=== PATIENT | female | born 1935 | race Caucasian/White ===

== ENCOUNTER 2020-06-14 13:17 | Emergency (ER) | payer MEDICARE, SELFPAY ==
[2020-06-14 13:22] VITALS: BP 170/84; PULSE 73; RESP 14; TEMP 36; O2SAT 98; BMI 32.8
--- NOTE | 2020-06-14 13:39 | ED_ITS ---
HPI - Wound/Laceration General: Chief Complaint: Wound/Laceration Stated Complaint: right foot toe lac Time Seen by Provider: 06/14/20 13:39 History of Present Illness: HPI narrative: Patient is an 84-year-old female comes to the ED with a wound on third toe of right foot. Patient has a past medical history of peripheral neuropathy. Patient said she had callus at the tip of her third digit of the right foot. Last night, she cut the callus off with clippers but then it started bleeding and thinks she probably cut a little more off than she should have. Pt also thinks she might have accidentally removed her toe nail as well. Patient is on Eliquis. She has had trouble slowing the bleeding. Associated symptoms: Denies chills, fever(s), nausea or vomiting Review of Systems Const: Denies: fever(s), chills or fatigue Eyes: Denies: change in vision or eye discomfort ENMT: Denies: throat pain, odynophagia, nasal discharge or nasal congestion Card: Denies: chest pain, palpitations, edema, swelling of feet/ankles, dyspnea on exertion or orthopnea Resp: Denies: dyspnea, productive cough or non-productive cough GI: Denies: abdominal pain, nausea, vomiting, diarrhea, constipation or hematochezia : Denies: flank pain, dysuria or hematuria Musc: Denies: neck pain, back pain or extremity swelling Skin/Breast: Reports: new lesions (lesion on tip of 3rd toe right foot); Denies: rash Neuro: Denies: headache(s), numbness in extremities or weakness in extremities Physical Exam Const: COMMON NORMALS: no acute distress, patient oriented x3, healthy appearing and alert GENERAL APPEARANCE: cooperative and comfortable HENMT: COMMON NORMALS: normocephalic HEAD & SCALP: normocephalic MOUTH: Normal oral and palatal mucosa present THROAT: posterior oropharynx normal and uvula midline Neck/C-Spine: COMMON NORMALS: supple GENERAL: Yes normal visual inspection Resp: COMMON NORMALS: normal respiratory effort, No retractions, No use of accessory muscles and clear to auscultation bilaterally AUSCULTATION: clear to auscultation bilaterally Cardio: COMMON NORMALS: regular rate, regular rhythm, S1 normal heart sound present, S2 normal heart sound present, No gallops present (Cardio), No clicks present (Cardio), No murmurs present (Cardio) and Peripheral pulses 2+ througho ut RATE: regular rate RHYTHM: regular rhythm HEART SOUNDS: S1 normal heart sound present and S2 normal heart sound present PERIPHERAL PULSES: Peripheral pulses 2+ throughout GI: COMMON NORMALS: Normal to inspection, nondistended, normoactive bowel sounds present, Soft to palpation, non-tender and no masses PALPATION: Yes Soft to palpation : COMMON NORMALS: Yes no CVA tenderness BLADDER/KIDNEY EXAM: Yes no CVA tenderness Back/Pelvis: COMMON NORMALS: no CVA tenderness Extremity: NARRATIVE EXTREMITY EXAM: Patient has an avulsion wound on third toe of right foot at the tip. No nail seen upon examination. there is minimal active bleeding currently. No signs of infection such as erythema, warmth or drainage. No foreign body or contamination seen in wound. this wound is not a candidate for closure with sutures. Neuro: COMMON NORMALS: patient oriented x3 and moves all extremities SENSORIUM/ORIENTATION: Yes alert Skin: NARRATIVE SKIN EXAM: Patient has an avulsion wound on third toe of right foot at the tip. No nail seen upon examination. There is minimal active bleeding currently. No signs of infection such as erythema, warmth or drainage. No foreign body or contamination seen in wound. this wound is not a candidate for closure with sutures. GENERAL SKIN EXAM: dry skin Course Vital Signs: Vital signs: Vital Signs Temperature 96.8 F L 06/14/20 13:22 Pulse Rate 60 06/14/20 13:48 Respiratory Rate 17 06/14/20 13:48 Blood Pressure 139/76 06/14/20 13:48 Pulse Oximetry 93 06/14/20 13:48 MDM - Wound/Laceration MDM Narrative: Medical decision making narrative: Patient is an 84-year-old female comes to the ED with a wound on third toe of right foot. Patient has a past medical history of peripheral neuropathy. Patient states she was cutting a callus off her third toe and thinks she cut more than her callus off removed some skin along with her toenail on third toe. Exam showed an evulsion wound on third toe and no nail was seen on exam. Bleeding has almost stopped and is very minimal currently here in the ED. The avulsion wound is not a candidate for closure with sutures. Patient was given an updated tetanus shot. The wound was irrigated with normal saline by the nurse and then some bacitracin was placed on wound and bandage. Patient was discharged with a prescription of cephalexin as prophylactic treatment. I placed an order with case management for patient to be referred to wound care clinic to monitor healing of wounds since patient has PMH of peripheral neuropathy. Patient was told to clean and redress wound daily and use triple antibiotic ointment on wounds as well. Return to ED precautions given. Follow-up with PCP in 7 to 10 days. Patient understood and agreed with plan. Discharge Plan Discharge Patient Disposition: Home Clinical Impression: Avulsion of skin Condition: Stable Prescriptions: New cephalexin 500 mg capsule 500 mg PO TID 4 Days Qty: 12 RF: 0 Discharge Orders: Discharge Order (Routine); Ordered 06/14/20 Ordered By: Lit Grant Referrals: Juan Cid MD [Occupational Therapist] - Discharge Diet: Regular Discharge Activity: Increase activity as tolerated Patient Instructions: Skin Avulsion (ED) Activity Restrictions/Additional Instructions: Take full course of antibiotics as prescribed. Keep wound site clean and dry for the next 24 hours. Then after that you can clean and re-bandage daily. Apply Neosporin/triple antibiotic ointment on wound daily as well. Watch for signs of infection such as redness, warmth, increased tenderness and puslike drainage. If you see the signs of infection return to the ED, urgent care or PCP for reevaluation. call your PCP to schedule a follow-up appointment for reevaluation in about 10 days. Continue taking all home meds. Case management will contact you in the next several days to set up an appointment with wound care clinic. You were given an updated tetanus shot today and you are due for your next tetanus shot in 2025-0250. Follow discharge plans as discussed. You can return to the ED if symptoms worsen. Discharge Date/Time: 06/14/20 14:30 Coding Level of Care Code ED Special Education Supervisor for Helen Fwchristiano Exam Comprehensive
[2020-06-14 13:48] VITALS: BP 139/76; PULSE 60; RESP 17; O2SAT 93
[2020-06-14] MEDS: tetanus-dipt-pertussis 0.5 mL SDV IM (14:04)
[2020-06-14] MEDS: bacitracin ointment Pkt 1 EACH TOPICAL (14:13)
--- NOTE | 2020-06-14 14:53 | DCPLANNER ---
restaurant service manager had message to schedule a follow up appointment for patient with Wound Care. restaurant service manager called Wound Care, spoke with Aylin, a follow up appointment was scheduled for Thursday, June 18, 2020 at 8:[address] Leary. restaurant service manager called patient and gave patient the appointment information.
--- NOTE | 2020-06-21 14:42 | DCPLANNER ---
Patient had a follow up appointment scheduled for 06.18.20 with Wound Care - patient did attend appointment.
== END 2020-06-14 14:30 | disposition home or self-care (01) ==
LOC: ER 14:43
PROVIDERS: Emergency Provider Physician Assistant; PCP Internal Medicine
DX: S91.104A Unspecified open wound of right lesser toe(s) without damage to nail, initial encounter (principal); X58.XXXA Exposure to other specified factors, initial encounter; Z23 Encounter for immunization
CPT/HCPCS: 12345; 90471; 90715; 99282

== ENCOUNTER 2020-06-19 08:12 | Outpatient (CLI) | payer MEDICARE, SELFPAY | END 2020-06-19 08:13 | disposition home or self-care (01) | LOC: WOUND 08:13 | PROVIDERS: PCP Internal Medicine; Visit Provider Thoracic Surgery (Cardiothoracic Vascular Surgery) | DX: L97.512 Non-pressure chronic ulcer of other part of right foot with fat layer exposed (principal) | CPT/HCPCS: 11042; G0463; L3260 ==

== ENCOUNTER 2020-06-27 10:51 | Outpatient (CLI) | payer MEDICARE, SELFPAY ==
--- NOTE | 2020-06-27 11:02 | MM_ITS ---
WS: [id number] BILATERAL DIGITAL SCREENING MAMMOGRAM WITH CAD CLINICAL INFORMATION: SCREEN HISTORY: Screening mammogram. No current complaints. COMPARISON: July 26, 2010 TECHNIQUE: Bilateral CC and MLO views. FINDINGS: Fatty-replaced breasts bilaterally. No suspicious focal mass, asymmetry, calcifications, or windows server architect ural distortion. No evidence of malignancy. Stable 9 mm ovoid nodule central right breast previously demonstrated representing complex cyst. Stable punctate and lucent centered calcifications. Stable dy strophic calcifications upper outer left breast. Vascular calcification. MM/[place] [id number] IMPRESSION: BI-RADS: 2-Benign FOLLOW UP: 1 Year Follow-up Recommend return to annual screening mammography.
--- NOTE | 2020-06-27 14:04 | USCV_ITS ---
Sally Carline Age: 84 Gender: F : 1935 Exam Date: 06/27/2020 14:28 Ordering Phys: Mone Chowdhury MD Technologist: Raghav Strauss Exam Location: [facility] [place] Indication: MURMUR BP: 126 / 72 HR: 64 Rhythm: Sinus Technical Quality: Fair MEASUREMENTS (Male / Female) Normal Values 2D ECHO LV Diastolic Diameter PLAX 3.8 cm 4.2 - 5.9 / 3.9 - 5.3 cm LV Systolic Diameter PLAX 2.1 cm IVS Diastolic Thickness 1.5 cm 0.6 - 1.0 / 0.6 - 0.9 cm IVS Systolic Thickness 1.4 cm LVPW Diastolic Thickness 1.3 cm 0.6 - 1.0 / 0.6 - 0.9 cm LVPW Systolic Thickness 1.3 cm LVOT Diameter 2.0 cm LV Ejection Fraction 2D Teich 76.1 % LV Ejection Fraction MOD 2C 75.4 % LV Ejection Fraction 2C AL 76.3 % LA Diameter 4.2 cm LA Width 4.1 cm LA Height 5.2 cm RA Width 4.0 cm RA Height 3.7 cm Aorta at Sinotubular Diameter 1.1 cm M-MODE LV Diastolic Diameter MM 4.6 cm 4.2 - 5.9 / 3.9 - 5.3 cm LV Systolic Diameter MM 2.8 cm LV Ejection Fraction MM Teich 70.0 % IVS Diastolic Thickness MM 1.0 cm 0.6 - 1.0 / 0.6 - 0.9 cm IVS Systolic Thickness MM 1.8 cm LVPW Diastolic Thickness MM 1.2 cm 0.6 - 1.0 / 0.6 - 0.9 cm LVPW Systolic Thickness MM 2.0 cm RV Diastolic Diameter MM 2.2 cm Aortic Annulus Diameter 3.4 cm LA Ao Ratio MM 1.2 MV E Point Septal Separation 0.9 cm DOPPLER AV Peak Velocity 209.0 cm/s LVOT Peak Velocity 100.0 cm/s AV Area Cont Eq vti 1.7 cm squared AV Area Cont Eq pk 1.6 cm squared MV Area PHT 2.0 cm squared Mitral E to A Ratio 0.9 MV E' Velocity 7.0 cm/s Mitral E to MV E' Ratio 15.8 Mitral E to LV E' Lateral Ratio 16.3 Mitral E to LV E' Septal Ratio 15.6 TR Peak Velocity 231.0 cm/s TR Peak Gradient 21.4 mmHg TV Peak E Velocity 118.0 cm/s Right Atrial Pressure 3.0 mmHg Pulmonary Artery Systolic Pressu 24.3 mmHg PV Peak Velocity 113.0 cm/s FINDINGS Left Ventricle Normal left ventricular cavity size. Normal left ventricular systolic function. No regional wall motion abnormalities. Please note that due to foreshortening of the left ventricle estimation of ejection fraction may not be accurate Grade I/IV diastolic dysfunction (abnormal relaxation filling pattern), normal to mildly elevated filling pressures. Right Ventricle The right ventricle is normal in size and function. Right Atrium The right atrium is normal in size. Left Atrium Moderately increased left atrial size. Mitral Valve Severely thickened mitral valve. Severe mitral annular calcification. No mitral valve stenosis. No mitral valve regurgitation. Aortic Valve Severe aortic valve calcification. Moderate aortic valve stenosis, mean gradient 8 mmHg, UDAY 1.7 cm squared. Tricuspid Valve [id number] tricuspid valve regurgitation. Pulmonic Valve Structurally normal pulmonic valve without significant stenosis. There is no pulmonic regurgitation. Pericardium Normal pericardium without effusion. Aorta Normal ascending aorta dimension. CONCLUSIONS 1-Normal left ventricular cavity size. Normal left ventricular systolic function. No regional wall motion abnormalities. Please note that due to foreshortening of the left ventricle estimation of ejection fraction may not be accurate Grade I/IV diastolic dysfunction (abnormal relaxation filling pattern), normal to mildly elevated filling pressures. 2-Severely thickened mitral valve. Severe mitral annular calcification. No mitral valve stenosis. No mitral valve regurgitation. 3-Severe aortic valve calcification. Moderate aortic valve stenosis, mean gradient 8 mmHg, UDAY 1.7 cm squared. 4-Moderately increased left atrial size. 3-Mtct-td-moderate tricuspid valve regurgitation. 6-Right atrial pressure is around 5 mm of mercury. 7-There are no prior echocardiogram studies to compare. Joelle Basurto MD (Electronically Signed) Final Date: 27 June 2020 18:34 S
--- NOTE | 2020-06-27 15:05 | XR_ITS ---
WS: [id number] DEXA (DUAL ENERGY X-RAY ABSORPTIOMETRY) Bone mineral density was performed using a 2d2c machine. HISTORY: ASYMPTOMATIC POSTMENOPAUSAL STATUS COMPARISON: None available. Lumbar spine BMD (L1-L4): 1.409 g/cm2 T score: 1.9 Z score: 3.3 Total hip BMD: Left: 1.012 g/cm2. T score: 0.0 Z score: 1.9 Right: 0.984 g/cm2. T score: -0.2 Z score: 1.6 10 year probability of a major osteoporotic fracture is 11%. XR/XR DEXA axial skeleton* [id number] IMPRESSION: NORMAL BONE MINERAL DENSITY based upon the WHO classification for females.
== END 2020-06-27 10:52 | disposition home or self-care (01) ==
PROVIDERS: PCP Internal Medicine; Visit Provider Internal Medicine
DX: Z12.31 Encounter for screening mammogram for malignant neoplasm of breast (principal); R01.1 Cardiac murmur, unspecified; Z78.0 Asymptomatic menopausal state; I08.3 Combined rheumatic disorders of mitral, aortic and tricuspid valves
CPT/HCPCS: 77067; 77080; 93306

== ENCOUNTER → 2020-07-27 13:23 | Outpatient (BNVA) | payer MEDICARE, SELFPAY | PROVIDERS: PCP Internal Medicine; Visit Provider Physician Assistant Surgical | DX: Z11.59 Encounter for screening for other viral diseases (principal) | CPT/HCPCS: 87635 ==

== ENCOUNTER → 2020-08-31 13:20 | Outpatient (BNVA) | payer MEDICARE, SELFPAY | PROVIDERS: PCP Internal Medicine; Visit Provider Internal Medicine | DX: Z20.828 Contact with and (suspected) exposure to other viral communicable diseases (principal); Z01.812 Encounter for preprocedural laboratory examination | CPT/HCPCS: 87635 ==

== ENCOUNTER 2020-09-04 08:27 | Outpatient (CLI) | payer MEDICARE, SELFPAY ==
--- NOTE | 2020-09-04 08:47 | ECG_ITS ---
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 Interpretive Statements Name of study: Lexiscan stress test Indication: Dyspnea on exertion PROCEDURE: At the baseline, the blood pressure was 209/90 mmHg with a heart rate of 60 bpm. The electrocardiogram showed A sense V paced rhythm. The Lexiscan was infused over a period of 20 seconds. A total of 0.4 milligrams of Lexiscan was infused. The stress phase was continued for a total of 5 minutes. Heart rate at the end of the stress phase was 60 bpm with a blood pressure 160/80 mmHg. The EKG at the peak infusion revealed no ST-T wave changes. Study was terminated due to protocol completion. Sestamibi was injected 20 seconds after the Lexiscan infusion. Blood pressure at the end of the recovery phase was 177/76 mmHg with a heart rate of 60 beats per minute. CONCLUSION: 1. Non diagnostic EKG with LexiScan infusion given baseline paced rhythm. 2. No LexiScan induced chest pain or cardiac arrhythmia. 3. Normal blood pressure and heart rate response. 4. Sestamibi/sestamibi perfusion scan pending; see separate report. Electronically Signed On 09-05-2020 13:24:34 AIRLINE TICKET AGENT by Puja Crespo M.D. [id number]
--- NOTE | 2020-09-04 08:48 | NMCV_ITS ---
NM analilia perf SPECT r/s* [id number] Carline Zavala Age: 85 Gender: F : 1935 Exam Date: 09/04/2020 09:58 Ordering Phys: Puja Crespo MD Technologist: JADEN Payan Exam [facility]: [facility] Indications: DYSPNEA STRESS TEST Please see separate stress test report [facility] for full findings IMAGE PROTOCOL Rest/Stress 1 Lexiscan Day Radiopharmaceutical Dose (mCi) Administration Site Administered by Rest: Tc-99m 10.8 IV JADEN Payan Sestamibi Stress:Tc-99m 33.0 IV JADEN Nicholas Sestamibi Rest: 04-Sep-2020 60 Discovery 630 Stress: 04-Sep-2020 30 Discovery 630 0.4mg Lexiscan. Images obtained in supine and prone position. SPECT RESULTS Technical Quality: Excellent Raw Data Analysis: Normal Image Corrections: No attenuation or motion correction applied Summed Stress Score: 6 Summed Rest Score: 5 Summed Difference Score: 1 PERFUSION FINDINGS Small sized perfusion abnormality of mild to moderate severity of apical septal, apical anterior, apical inferior and apical amaro on rest images with subtle reversibility in apical septal and apical amaro. FUNCTIONAL RESULTS (calculated via Gated SPECT) Stress Image LV EF (%): 67 Stress EDV (mL):109 TID: 0.98 Stress ESV (mL):36 FUNCTIONAL FINDINGS: The left ventricle is normal in size. Transient Ischemia Dilatation of 0.98. There is normal left ventricular systolic function. The left ventricular ejection fraction is normal with a value of 67%. There is normal left ventricular wall thickening. Normal end-diastolic and end-systolic volumes. IMPRESSIONS 1. Small sized perfusion abnormality of mild to moderate severity of apical septal, apical anterior, apical inferior and apical amaro with subtle reversibility in apical septal and apical amaro. 2. 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 3. Overall left ventricular systolic function is abnormal with regional wall motion abnormalities. 4. The left ventricular ejection fraction is normal with a value of 67%. 5. No prior similar studies to compare. Puja Crespo MD (Electronically Signed) Final Date: 05 September 2020 13:17 S
[2020-09-04 08:59] VITALS: BMI 33.0
[2020-09-04] MEDS: regadenoson 0.4 Mg/5 ml Syringe IVP (10:48)
[2020-09-04 11:07] VITALS: BP 177/76; PULSE 60
== END 2020-09-04 08:28 | disposition home or self-care (01) ==
LOC: CDL 08:34
PROVIDERS: PCP Internal Medicine; Visit Provider Hospitalist
DX: R06.00 Dyspnea, unspecified (principal)
CPT/HCPCS: 78452; 93017; A9500; J2785

== ENCOUNTER 2020-09-06 07:52 | Outpatient (CLI) | payer MEDICARE, SELFPAY ==
--- NOTE | 2020-09-06 10:19 | PFTS_ITS ---
Date of Study:09/06/20 Date of Dictation: MECHANICS: Forced vital capacity (FVC) is reduced. Forced expiratory volume in one second (FEV1) is normal. FEV1/FVC is normal. FLOW VOLUME LOOP: Normal. LUNG VOLUMES: Not measured DIFFUSING CAPACITY FOR CARBON MONOXIDE: Not measured INTERPRETATION: The spirometry is consistent with mild restriction. No postbronchodilator response was obtained. MTDD
== END 2020-09-06 07:53 | disposition home or self-care (01) ==
PROVIDERS: PCP Internal Medicine; Visit Provider Internal Medicine
DX: R06.2 Wheezing (principal)
CPT/HCPCS: 94010

== ENCOUNTER 2021-03-19 08:36 | Outpatient (CLI) | payer MEDICARE, SELFPAY ==
--- NOTE | 2021-03-19 08:45 | XR_ITS ---
WS: [id number] Exam: XR chest 2V* [id number] Date/Time of Exam: 03/19/2021 8:51 AM Reason For Exam: CHRONIC COUGH Comparison 09/15/2007. The lungs are fully expanded and clear. Chronic interstitial changes. Unremarkable cardiomediastinal silhouette. No pleural effusions. A cardiac pacer superimposes the left chest. Severe degeneration of the left glenohumeral joint and AC joint. XR/XR chest 2V* [id number] IMPRESSION: 1. No acute cardiopulmonary finding.
== END 2021-03-19 08:37 | disposition home or self-care (01) ==
PROVIDERS: PCP Internal Medicine; Visit Provider Internal Medicine
DX: R05 Cough (principal)
CPT/HCPCS: 71046

== ENCOUNTER 2021-04-19 11:41 | Emergency (ER) | payer MEDICARE, SELFPAY ==
[2021-04-19] VITALS (8 sets, daily range): BP systolic 148–183; BP diastolic 71–96; PULSE 60–61; RESP 18–21; TEMP 36.8; O2SAT 93–97; BMI 32.0
--- NOTE | 2021-04-19 12:03 | XR_ITS ---
WS: [id number] Portable AP upright chest, 04/19/2021 Clinical Data: Chest Pain Comparison: PA and lateral chest, 03/19/2021. Findings: No nodules, masses or effusions are seen. The heart is normal. The pulmonary vascularity is not increased. No pneumonia or pneumothorax is seen. There is a permanent pacemaker in good position with the generator overlapping the left lateral chest and axilla. The aortic arch and descending aor ta show tortuosity. There are clips in the right upper quadrant from a cholecystectomy. There is morenita re degenerative change of the left shoulder. XR/XR chest 1V portable [id number] Impression: Atherosclerosis and prominent pacemaker.
--- NOTE | 2021-04-19 12:03 | ECG_ITS ---
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: : 1935 Requested By: Maikel Bruner Order Number: [id number] Reading MD: OSVALDO TOUSSAINT Measurements Intervals [place] Rate: 60 P: 92 IL: 212 QRS: -10 QRSD: 178 T: 152 QT: 450 QTc: 450 Interpretive Statements ELECTRONIC ATRIAL PACEMAKER LEFT BUNDLE BRANCH BLOCK [120+ ms QRS DURATION, 80+ ms Q/S IN V1/V2, 85+ ms R IN I/aVL/V5/V6] No previous ECG available for comparison Electronically Signed On 04-19-2021 19:24:14 CDT by OSVALDO TOUSSAINT [id number]
--- NOTE | 2021-04-19 12:27 | ED_ITS ---
HPI - Chest Pain General: Chief Complaint: Chest Pain Stated Complaint: cp Time Seen by Provider: 04/19/21 12:24 History of Present Illness: HPI narrative: This patient is an 85-year-old female who presents to the emergency department for atypical type chest pain symptoms in the left upper chest. Patient states she is having significant pain and aching around her pacemaker site this morning. Patient states she really did not think much of it until he went to her left upper arm and left shoulder. Patient states now she is completely pain-free. Patient tried to go to an urgent care where they advised that she needed to come to the emergency department. Patient requested medical screening exam. Again patient is pain- free at this time. Will do medical evaluation treat as needed complaint: chest pain Onset (ago): hour(s) Timing of current episode: now resolved Prior episodes: No Pain location: left chest Pain radiation: left arm and left shoulder Severity: mild Quality: aching Associated symptoms: Deny abdominal pain, dyspnea, fever(s), nausea, palpitations or vomiting Review of Systems General: Reports: 10 or more systems reviewed and unremarkable except in HPI and below Const: Denies: fever(s), chills, body aches or fatigue Eyes: Denies: change in vision or blurry vision ENMT: Denies: throat pain, hoarseness or mouth pain Card: Reports: chest pain; Denies: palpitations, irregular heart rhythm, edema, swelling of feet/ankles or lightheadedness Resp: Denies: dyspnea, productive cough, non-productive cough, wheezing or pain on inspiration GI: Denies: abdominal pain, nausea or vomiting : Denies: flank pain, difficulty voiding, dysuria, urinary frequency, urinary urgency or urinary hesitancy Musc: Denies: neck pain, back pain, extremity pain, extremity swelling, joint pain, joint swelling, joint redness, joint warmth or limited range of motion Skin/Breast: Denies: rash, pruritus, erythema or skin tenderness Neuro: Denies: headache(s), numbness in extremities or weakness in extremities Psych: Denies: anxiety or depression PFS ED PFSH: Medical History Atrial fibrillation Charcot's arthropathy Hypertension Hypothyroidism Surgical History S/P cardiac pacemaker procedure Family History Other Anemia CAD (coronary artery disease) Diabetes Heart disease Hyperlipidemia Hypertension Social History Alcohol intake: never Physical Exam Const: COMMON NORMALS: no acute distress, average body habitus, patient oriented x3, no limitations, healthy appearing, alert and well nourished HENMT: COMMON NORMALS: normocephalic, atraumatic, hearing grossly normal bilaterally, external ears normal, EAC's normal, TM's normal bilaterally, Normal external nose present, Normal nasal mucous membranes and turbinates present, moist oral mucous membranes, oropharynx normal, dentition normal and gingiva normal HEAD & SCALP: normocephalic and atraumatic NOSE: Normal external nose present and Normal nasal mucous membranes and turbinates present EXTERNAL EAR: Yes external ears normal EXTERNAL AUDITORY CANAL: EAC's normal TYMPANIC MEMBRANE: TM's normal bilaterally Neck/C-Spine: COMMON NORMALS: full ROM, no lymphadenopathy, supple, no meningeal signs, no JVD, Thyroid normal and No carotid bruits THYROID: Thyroid normal Chest: COMMONS NORMALS: normal inspection of the chest, normal palpation of entire chest wall, normal inspection of the breasts and normal palpation of the breasts Breast/axilla inspection: Yes normal inspection of the breasts BREAST/AXILLA PALPATION: Yes normal palpation of the breasts Resp: COMMON NORMALS: normal respiratory effort, No retractions, No use of accessory muscles, clear to auscultation bilaterally and percussion normal AUSCULTATION: clear to auscultation bilaterally PERCUSSION: percussion normal Cardio: COMMON NORMALS: no JVD, regular rate, regular rhythm, S1 normal heart sound present, S2 normal heart sound present, No gallops present (Cardio), No clicks present (Cardio), No murmurs present (Cardio), No rub (Cardio) and Peripheral pulses 2+ throughout RATE: regular rate RHYTHM: regular rhythm HEART SOUNDS: S1 normal heart sound present and S2 normal heart sound present PERIPHERAL PULSES: Peripheral pulses 2+ throughout GI: COMMON NORMALS: Normal to inspection, nondistended, normoactive bowel sounds present, Soft to palpation, non-tender, No hepatosplenomegaly present, no masses and no bruits PALPATION: Yes Soft to palpation and Yes No hepatosplenomegaly present Back/Pelvis: COMMON NORMALS: thoracic and lumbar spine normal to inspection, no thoracic nor lumbar tenderness, thoraco-lumbar ROM normal and straight leg raise negative bilaterally Extremity: COMMON NORMALS: normal to inspection, full ROM, capillary refill normal, no joint enlargement, no clubbing, cyanosis or edema, no calf tenderness and no pedal edema Neuro: COMMON NORMALS: patient oriented x3 SENSORIUM/ORIENTATION: Yes alert MENINGEAL SIGNS: Yes no meningeal signs Course Reevaluation(s): Reevaluation #1: Negative evaluation in the emergency department. Negative cardiac evaluation. Atypical type chest pain complaint resolved prior to arrival. Negative labs. Patient be discharged home. Patient is to follow-up with primary care physician in 2 to 3 days and with training and development professional. Patient states understanding she is discharged Time: 15:39 Vital Signs: Vital signs: Vital Signs Temperature 98.3 F 04/19/21 11:53 Pulse Rate 60 04/19/21 14:00 Respiratory Rate 18 04/19/21 14:00 Blood Pressure 148/96 04/19/21 14:00 Pulse Oximetry 97 04/19/21 14:00 MDM - Chest Pain MDM Narrative: Medical decision making narrative: This patient is an 85-year-old female who presents to the emergency department for atypical type chest pain symptoms in the left upper chest. Patient states she is having significant pain and aching around her pacemaker site this morning. Patient states she really did not think much of it until he went to her left upper arm and left shoulder. Patient states now she is completely pain-free. Patient tried to go to an urgent care where they advised that she needed to come to the emergency department. Negative evaluation in the emergency department. Negative cardiac evaluation. Atypical type chest pain complaint resolved prior to arrival. Negative labs. Patient be discharged home. Patient is to follow-up with primary care physician in 2 to 3 days and with training and development professional. Patient states understanding she is discharged Lab Data: Labs: Lab Results 04/19/21 04/19/21 04/19/21 Range/Units 12:41 12:41 12:41 WBC 6.1 (4.0-10.0) 10^3/ uL RBC 3.50 L (4.1-5.3) 10^6/u L Hgb 11.1 L (11.5-15.3) g/dL Hct 33.1 L (37.0-47.0) % MCV 94.6 (81-99) fL MCH 31.7 (28.0-34.0) pg MCHC 33.5 (30.0-36.0) g/dL RDW 12.7 (12.1-15.1) % Plt Count 170 (130-400) 10^3/c mm MPV 9.7 (7.4-10.4) fL Neut % (Auto) 67.8 % Lymph % (Auto) 16.4 % [place] % (Auto) 9.7 % Eos % (Auto) 4.8 % Baso % (Auto) 0.5 % Neut # (Auto) 4.12 (1.8-7.7) 10^3/u L Lymph # (Auto) 1.0 (0.8-4.8) 10^3/u L [place] # (Auto) 0.6 (0.2-0.9) 10^3/u L Eos # (Auto) 0.3 (0.0-0.8) 10^3/u L Baso # (Auto) 0.0 (0.0-0.1) 10^3/u L Nucleated RBC % (a uto) 0 % Nucleated RBCs # 0.0 /100WBC PT (12.1-14.9) SECO NDS INR (0.8-1.2) APTT (23.9-36.7) SECO NDS Sodium 141 (136-145) mmol/L Potassium 4.2 (3.5-5.1) mmol/L Chloride 107 (98-107) mmol/L Carbon Dioxide 25 (22-29) mmol/L Anion Gap 13.2 (5-19) BUN 8 (8-23) mg/dL Creatinine 0.6 (0.5-0.9) mg/dL GFR Calculation Not Reportable Glucose 108 (65-115) mg/dL Calculated Osmolal ity 291 (285-295) mOsm/k g Calcium 8.7 (8.5-10.5) mg/dL Total Bilirubin 0.5 (0.15-1.2) mg/dL AST 16 (0-32) U/L ALT 9 (0-33) U/L Alkaline Phosphata se 88 (35-105) IU/L Troponin T Baselin e 15 H (0-10) ng/L Troponin T 120 Min [place] (0-10) ng/L Delta Troponin T (0-10) ABS# NT-Pro-B Natriuret Pep 1263 H (0-450) pg/mL Total Protein 6.5 L (6.6-8.7) g/dL Albumin 3.9 (3.5-5.2) g/dL Globulin 2.6 (1.3-4.6) g/dL 04/19/21 04/19/21 Range/Units 13:10 14:50 WBC (4.0-10.0) 10^3/ uL RBC (4.1-5.3) 10^6/u L Hgb (11.5-15.3) g/dL Hct (37.0-47.0) % MCV (81-99) fL MCH (28.0-34.0) pg MCHC (30.0-36.0) g/dL RDW (12.1-15.1) % Plt Count (130-400) 10^3/c mm MPV (7.4-10.4) fL Neut % (Auto) % Lymph % (Auto) % [place] % (Auto) % Eos % (Auto) % Baso % (Auto) % Neut # (Auto) (1.8-7.7) 10^3/u L Lymph # (Auto) (0.8-4.8) 10^3/u L [place] # (Auto) (0.2-0.9) 10^3/u L Eos # (Auto) (0.0-0.8) 10^3/u L Baso # (Auto) (0.0-0.1) 10^3/u L Nucleated RBC % (a uto) % Nucleated RBCs # /100WBC PT 17.30 H (12.1-14.9) SECO NDS INR 1.38 H (0.8-1.2) APTT 40.2 H (23.9-36.7) SECO NDS Sodium (136-145) mmol/L Potassium (3.5-5.1) mmol/L Chloride (98-107) mmol/L Carbon Dioxide (22-29) mmol/L Anion Gap (5-19) BUN (8-23) mg/dL Creatinine (0.5-0.9) mg/dL GFR Calculation Glucose (65-115) mg/dL Calculated Osmolal ity (285-295) mOsm/k g Calcium (8.5-10.5) mg/dL Total Bilirubin (0.15-1.2) mg/dL AST (0-32) U/L ALT (0-33) U/L Alkaline Phosphata se (35-105) IU/L Troponin T Baselin e (0-10) ng/L Troponin T 120 Min [place] 14.88 H (0-10) ng/L Delta Troponin T -0.12 L (0-10) ABS# NT-Pro-B Natriuret Pep (0-450) pg/mL Total Protein (6.6-8.7) g/dL Albumin (3.5-5.2) g/dL Globulin (1.3-4.6) g/dL Imaging Data^: CXR: Attestation: I personally reviewed and interpreted this imaging study as follows: Radiologist's impression: Findings: No nodules, masses or effusions are seen. The heart is normal. The pulmonary vascularity is not increased. No pneumonia or pneumothorax is seen. There is a permanent pacemaker in good position with the generator overlapping the left lateral chest and axilla. The aortic arch and descending aorta show tortuosity. There are clips in the right upper quadrant from a cholecystectomy. There is severe degenerative change of the left shoulder. XR/XR chest 1V portable [id number] Impression: Atherosclerosis and prominent pacemaker. EKG Data^: EKG 1: Attestation: I personally reviewed and interpreted this EKG as follows: EKG interpretation date: 04/19/21 EKG interpretation time: 12:00 Prior EKG tracings: not available for review Interpretation: Electronically paced rhythm left bundle branch block heart rate 60 nondiagnostic EKG Discharge Plan Discharge Patient Disposition: Home Clinical Impression: Atypical chest pain, Hypertension, Pacemaker Condition: Stable Prescriptions: No Action pravastatin 10 mg tablet 10 mg PO DAILY Qty: 30 RF: 6 metoprolol tartrate 25 mg tablet 25 mg PO DAILY Qty: 90 RF: 2 famotidine 20 mg tablet 20 mg PO DAILY Qty: 30 RF: 2 furosemide 20 mg tablet 20 mg PO DAILY Qty: 90 RF: 2 losartan 50 mg tablet 50 mg PO .1 TAB AM, 1/2 TAB PM Qty: 120 RF: 2 Eliquis 5 mg tablet 5 mg PO BID RF: 0 duloxetine 60 mg capsule,delayed release(DR/EC) 60 mg PO DAILY RF: 0 gabapentin 800 mg tablet 1,600 mg PO BID RF: 0 levothyroxine 125 mcg tablet 125 mcg PO DAILY RF: 0 cetirizine [Zyrtec] 10 mg tablet 5 mg PO DAILY PRN (Reason: Allergy Symptoms) RF: 0 Vitamin B-12 1,000 mcg Tablet 1,000 mcg PO DAILY RF: 0 albuterol sulfate 90 mcg/actuation Hfa Aerosol Inhaler 1 inh INHALATION QID PRN (Reason: Shortness Of Breath) RF: 0 nortriptyline 50 mg Capsule 50 mg PO BEDTIME RF: 0 Symbicort 80-4.5 mcg/actuation Hfa Aerosol Inhaler 2 puff INHALATION BID RF: 0 Discharge Orders: Discharge ED (Routine); Ordered 04/19/21 Ordered By: Maikel Bruner Referrals: Mone Chowdhury MD [Primary Care Provider] - Discharge Diet: Advance as tolerated Discharge Activity: Resume usual activity Patient Instructions: Opioid Safety Activity Restrictions/Additional Instructions: Encourage p.o. fluids. Take continue all home medications. Follow-up with PCP and training and development professional as instructed. 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
[2021-04-19 13:03] LABS: Basophils % 0.5 %; Eosinophils # 0.3 10^3/uL (0.0-0.8); Eosinophils % 4.8 %; Hematocrit 33.1 % (37.0-47.0); Hemoglobin 11.1 g/dL (11.5-15.3); Lymphocytes % 16.4 %; Mean Corpuscular HGB Conc 33.5 g/dL (30.0-36.0); Mean Corpuscular Hemoglobin 31.7 pg (28.0-34.0); Mean Corpuscular Volume 94.6 fL (81-99); Mean Platelet Volume 9.7 fL (7.4-10.4); Monocytes # 0.6 10^3/uL (0.2-0.9); Monocytes % 9.7 %; Neutrophils # 4.12 10^3/uL (1.8-7.7); Neutrophils % 67.8 %; Nucleated Red Blood Cells % 0 %; Platelet Count 170 10^3/cmm (130-400); Red Cell Distribution Width 12.7 % (12.1-15.1); White Blood Count 6.1 10^3/uL (4.0-10.0)
[2021-04-19 13:38] LABS: INR 1.38 (0.8-1.2)
[2021-04-19 13:39] LABS: Partial Thromboplastin Time 40.2 SECONDS (23.9-36.7)
[2021-04-19 13:43] LABS: Troponin(5th) Baseline 15 ng/L (0-10)
--- NOTE | 2021-04-19 14:03 | ECG_ITS ---
[facility] Test Date: 2021-04-19 Pat Name: Carline Zavala Department: Room: Gender: Female Barker Operator: : 1935 Requested By: Maikel Bruner Order Number: [id number] Reading MD: OSVALDO TOUSSAINT Measurements Intervals [place] Rate: 60 P: 114 MD: 236 QRS: 19 QRSD: 178 T: 127 QT: 456 QTc: 456 Interpretive Statements ELECTRONIC ATRIAL PACEMAKER LEFT BUNDLE BRANCH BLOCK [120+ ms QRS DURATION, 80+ ms Q/S IN V1/V2, 85+ ms R IN I/aVL/V5/V6] No previous ECG available for comparison Electronically Signed On 04-19-2021 19:25:01 CDT by OSVALDO TOUSSAINT [id number]
[2021-04-19 14:13] LABS: Blood Urea Nitrogen 8 mg/dL (8-23); Calcium 8.7 mg/dL (8.5-10.5); Total Bilirubin 0.5 mg/dL (0.15-1.2)
[2021-04-19 15:00] LABS: Anion Gap 13.2 (5-19); Chloride 107 mmol/L (98-107); NT Pro B Type Natriuretic Pept 1263 pg/mL (0-450); Osmolality Calculated 291 mOsm/kg (285-295); Sodium 141 mmol/L (136-145); Total Protein 6.5 g/dL (6.6-8.7)
[2021-04-19 15:01] LABS: Alanine Aminotransferase 9 U/L (0-33); Albumin Level 3.9 g/dL (3.5-5.2); Alkaline Phosphatase 88 IU/L (35-105); Aspartate Amino Transferase 16 U/L (0-32); Carbon Dioxide 25 mmol/L (22-29); Globulin 2.6 g/dL (1.3-4.6); Glucose 108 mg/dL (65-115); Potassium 4.2 mmol/L (3.5-5.1)
[2021-04-19 15:23] LABS: Troponin 5 2HR 14.88 ng/L (0-10)
[2021-04-19 15:28] LABS: Troponin 5 2HR Delta -0.12 ABS# (0-10)
== END 2021-04-19 16:27 | disposition home or self-care (01) ==
PROVIDERS: Emergency Provider Emergency Medicine; PCP Internal Medicine
DX: R07.89 Other chest pain (principal); I10 Essential (primary) hypertension; Z95.0 Presence of cardiac pacemaker; Z79.01 Long term (current) use of anticoagulants
CPT/HCPCS: 71045; 80053; 83880; 84484; 85025; 85610; 85730; 93005; 99284

== ENCOUNTER 2021-07-18 09:33 | Outpatient (CLI) | payer MEDICARE, SELFPAY ==
--- NOTE | 2021-07-18 09:39 | MM_ITS ---
WS: [id number] BILATERAL DIGITAL SCREENING MAMMOGRAPHY WITH CAD CLINICAL INFORMATION: SCREENING HISTORY: Screening mammogram. No current complaints. COMPARISON: June 27, 2020 TECHNIQUE: Bilateral CC and MLO views. FINDINGS: Scattered fibroglandular densities bilaterally. Stable punctate and lucent centered calcifications. S table dystrophic calcification upper outer left breast. Stable 8 mm ovoid nodule mid right breast. Va scular calcification. Dilated veins left breast unchanged No suspicious focal mass, asymmetry, calcif ications, or architectural distortion. No evidence of malignancy. MM/[place] [id number] IMPRESSION: BI-RADS: 2-Benign FOLLOW UP: 1 Year Follow-up Recommend return to annual screening mammography.
== END 2021-07-18 09:34 | disposition home or self-care (01) ==
PROVIDERS: PCP Internal Medicine; Visit Provider Internal Medicine
DX: Z12.31 Encounter for screening mammogram for malignant neoplasm of breast (principal)
CPT/HCPCS: 77067

== ENCOUNTER 2021-12-20 07:31 | Outpatient (CLI) | payer MEDICARE, SELFPAY ==
--- NOTE | 2021-12-20 07:45 | USCV_ITS ---
Sally Carline Age: 86 Gender: F : 1935 Exam Date: 12/20/2021 07:54 Ordering Phys: Mone Chowdhury MD Technologist: Saray Rodriguez Exam Location: [facility] – [place] Indication: Aortic stenosis BP: 120 / 69 HR: 60 Rhythm: Sinus Technical Quality: Adequate MEASUREMENTS (Male / Female) Normal Values 2D ECHO LV Diastolic Diameter PLAX 4.4 cm 4.2 - 5.9 / 3.9 - 5.3 cm LV Systolic Diameter PLAX 4.0 cm LV Chamber Size 3.6 cm IVS Diastolic Thickness 1.5 cm 0.6 - 1.0 / 0.6 - 0.9 cm IVS Systolic Thickness 1.9 cm LVPW Diastolic Thickness 1.4 cm 0.6 - 1.0 / 0.6 - 0.9 cm LVPW Systolic Thickness 1.7 cm RV Chamber Size 3.1 cm LVOT Diameter 2.0 cm LV Ejection Fraction 2D Teich 8.8 % LV Ejection Fraction MOD 2C 55.6 % LV Ejection Fraction 2C AL 55.5 % LA Diameter 3.8 cm LA Width 3.3 cm LA Height 4.7 cm RA Width 2.7 cm RA Height 4.0 cm Aorta at Sinotubular Diameter 3.0 cm M-MODE Aortic Annulus Diameter 3.4 cm LA Ao Ratio MM 1.3 MV E Point Septal Separation 0.6 cm DOPPLER AV Peak Velocity 257.3 cm/s LVOT Peak Velocity 116.0 cm/s AV Area Cont Eq vti 1.6 cm squared AV Area Cont Eq pk 1.5 cm squared MV Peak Velocity 156.0 cm/s MV Area PHT 1.9 cm squared Mitral E to A Ratio 0.9 MV E' Velocity 72.0 cm/s Mitral E to MV E' Ratio 16.0 Mitral E to LV E' Lateral Ratio 15.3 Mitral E to LV E' Septal Ratio 16.8 TR Peak Velocity 383.5 cm/s TR Peak Gradient 58.8 mmHg TR Mean Velocity 283.1 cm/s TR Mean Gradient 35.9 mmHg TR Velocity Time Integral 130.9 cm TV Peak E Velocity 80.0 cm/s Right Atrial Pressure 3.0 mmHg Pulmonary Artery Systolic Pressu 61.8 mmHg PV Peak Velocity 96.0 cm/s RV Acceleration Time 0.1 s RV Ejection Time 0.3 s RV AcT/ET 0.3 FINDINGS Left Ventricle Normal left ventricular size, systolic function and increased wall thickness, with no regional wall motion abnormalities. Left ventricular ejection fraction is estimated at 70 %. Grade II diastolic dysfunction, moderately elevated filling pressures. Right Ventricle Normal right ventricular size and systolic function. Right ventricular systolic pressure 61.8 mmHg. Pacemaker wire visualized in the right ventricle. Right Atrium Normal right atrial size. Pacemaker wire in the right atrial cavity. Left Atrium Moderately increased left atrial size. Mitral Valve Severe mitral annular calcification. Moderately thickened mitral valve. Possible mild mitral valve stenosis with mean gradient of 3 mm Hg . Mild mitral valve regurgitation. Aortic Valve Markedly thickened and calcified aortic valve. Mild aortic valve stenosis, peak velocity 2.7 m/sec, peak gradient 29 mm Hg, mean gradient 15 mmHg, UDAY 1.5 cm squared. No aortic valve regurgitation. Tricuspid Valve Structurally normal tricuspid valve. No tricuspid valve stenosis. Mild tricuspid valve regurgitation. Pulmonic Valve Structurally normal pulmonic valve. No pulmonary valve stenosis. Trace pulmonary valve regurgitation. Pericardium No pericardial effusion. Aorta Normal size aortic root and proximal ascending aorta. Normal sized inferior vena cava. CONCLUSIONS 1. Normal left ventricular size, systolic function and increased wall thickness, with no regional wall motion abnormalities. Left ventricular ejection fraction is estimated at 70 %. Grade II diastolic dysfunction, moderately elevated filling pressures. 2. Normal right ventricular size and systolic function. 3. Mild aortic valve stenosis, peak velocity 2.7 m/sec, peak gradient 29 mm Hg, mean gradient 15 mmHg, UDAY 1.5 cm squared. 4. Mild tricuspid valve regurgitation. 5. Severe mitral annular calcification. Moderately thickened mitral valve. Possible mild mitral valve stenosis with mean gradient of 3 mm Hg . Mild mitral valve regurgitation. 6. Severe pulmonary hypertension with pulmonary artery pressure estimated at 62 mm Hg. 7. When compared to previous study dated 06/27/2020, there may not have been any significant changes. Puja Crespo MD (Electronically Signed) Final Date: 22 December 2021 13:06 S
== END 2021-12-20 07:32 | disposition home or self-care (01) ==
PROVIDERS: PCP Internal Medicine; Visit Provider Internal Medicine
DX: I08.3 Combined rheumatic disorders of mitral, aortic and tricuspid valves (principal); I27.20 Pulmonary hypertension, unspecified
CPT/HCPCS: 93306

== ENCOUNTER 2022-01-30 15:16 | Outpatient (CLI) | payer MEDICARE, SELFPAY ==
--- NOTE | 2022-01-30 15:30 | MM_ITS ---
WS: [id number] RIGHT 3D TOMOSYNTHESIS DIGITAL MAMMOGRAPHY WITH CAD CLINICAL INFORMATION: RT BREAST MASS-LARGE MASS APPOX 5-6 O'CLOCK COMPARISON: July 18, 2021 TECHNIQUE: 7 views of the right breast were obtained. FINDINGS: Scattered fibroglandular densities of the right breast. 2 palpable markers RIGHT breast. Suspicious l obulated soft tissue mass 6:00 position RIGHT breast measuring 3.3 x 2.3 CM is new from previous. Matt rounding increased parenchymal density extends along the palpable marker at the 6 clock position. Ult rasound is pending. Vascular calcification. Stable 8 mm ovoid nodule mid RIGHT breast. ULTRASOUND BREAST RIGHT TECHNIQUE: Ultrasound right breast focused area of concern. CLINICAL INFORMATION: RT BREAST MASS-LARGE MASS APPOX 5-6 O'CLOCK FINDINGS: Ultrasound RIGHT breast at the 6 clock position 4 cm from the nipple. There is a heterogeneous irregu lar hypoechoic solid lesion measuring 3.7 x 3.0 x 2.4 cm with associated vascularity. This has a susp icious appearance for neoplasm. This corresponds to the density seen on the mammogram. Recommend furt her evaluation with ultrasound-guided biopsy. RIGHT axilla was also examined and demonstrates no suspicious lymph nodes. MM/[place] [id number] IMPRESSION: BI-RADS: 5-Highly Suggestive of Malignancy FOLLOW UP: US Guided Biopsy Recommended Recommend ultrasound-guided biopsy of the RIGHT breast mass.
== END 2022-01-30 15:17 | disposition home or self-care (01) ==
PROVIDERS: PCP Internal Medicine; Visit Provider Nurse Practitioner Family
DX: N63.10 Unspecified lump in the right breast, unspecified quadrant (principal)
CPT/HCPCS: 76642; 77061

== ENCOUNTER 2022-02-11 09:10 | Outpatient (CLI) | payer MEDICARE, SELFPAY ==
--- NOTE | 2022-02-11 09:28 | US_ITS ---
WS: [id number] ULTRASOUND-GUIDED RIGHT BREAST BIOPSY CLINICAL INFORMATION: R BREAST MASS/LUMP COMPARISON: None. FINDINGS: The procedure including risks, benefits, and complications were discussed with the patient who agreed to proceed. Using sterile technique patient was prepped and draped in the usual sterile fashion. Aft er 1% lidocaine utilizing real-time ultrasound guidance 5 14-gauge cores were obtained of the RIGHT b reast lesion at the 6 o'clock position 4 cm from the nipple. Subsequently a titanium clip was placed in the biopsy cavity. No immediate complications. Pathology demonstrates Right breast 6:00, ultrasound-guided needle biopsies: 1. 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 Nuclear grade 3 3. Tumor demonstrates necrosis 4. Tumor size 0.9 cm (glass slide measurement) 5. No precursor lesion identified 6. Breast tumor studies ordered and results pending at this time US/[place] [id number] IMPRESSION: 1. Uncomplicated ultrasound-guided RIGHT breast biopsy. 2. The pathology demonstrates poor differentiated invasive mammary carcinoma w ith ductal and lobular features 3. Breast cancer prognostic profile pending. BI-RADS: 6-Known Biopsy-Proven Malignancy FOLLOW UP: Surgical Biopsy Recommended RECOMMEND BREAST SURGERY CONSULTATION FOR FURTHER EVALUATION. Case was discussed with SAI Payne by Dr. Noonan on 02/12/2022.
[2022-02-17 09:43] LABS: Miscellaneous Test See Scanned Lab Rpt
== END 2022-02-11 09:11 | disposition home or self-care (01) ==
PROVIDERS: PCP Internal Medicine; Visit Provider Nurse Practitioner Family
DX: C50.811 Malignant neoplasm of overlapping sites of right female breast (principal)
CPT/HCPCS: 19083; 88305; 88361; 88374

== ENCOUNTER → 2022-02-24 08:05 | Outpatient (BNVA) | payer MEDICARE, SELFPAY | PROVIDERS: PCP Internal Medicine; Referring Provider Internal Medicine Medical Oncology; Visit Provider Surgery | DX: C50.811 Malignant neoplasm of overlapping sites of right female breast (principal) | CPT/HCPCS: 93005; 99203 ==

== ENCOUNTER 2022-03-04 08:30 | Oncology outpatient (recurring) (ONCR) | payer MEDICARE, SELFPAY ==
--- NOTE | 2022-03-04 13:10 | PFTS_ITS ---
Date of Study:03/04/22 Date of Dictation: 03/07/2022 MECHANICS: Prebronchodilator forced vital capacity (FVC) is normal. Prebronchodilator forced expiratory volume in one second (FEV1) is normal. FEV1/FVC is normal. There is no postbronchodilator study FLOW VOLUME LOOP: Normal . LUNG VOLUMES: Total lung capacity (TLC) is reduced. Residual volume (RV) is moderately reduced. DIFFUSING CAPACITY FOR CARBON MONOXIDE: Normal . INTERPRETATION: The spirometry is normal. Postbronchodilator study not performed. Flow volume loop consistent is normal. Lung volumes suggestive of moderate restriction. Gas transfer is normal. 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 Clinical correlation recommended. [facility]
== END 2022-03-04 23:59 | disposition home or self-care (01) ==
LOC: RT 03-05 00:02 → RAD 03-05 00:02
PROVIDERS: PCP Internal Medicine; Visit Provider Internal Medicine Medical Oncology
DX: R06.00 Dyspnea, unspecified (principal)
CPT/HCPCS: 94010; 94726; 94729; 99205; 99999

== ENCOUNTER 2022-03-06 17:11 | Observation (INO) | payer MEDICARE, SELFPAY ==
[2022-02-25 13:42] VITALS: BMI 33.0
[2022-03-06] VITALS (63 sets, daily range): BP systolic 84–187; BP diastolic 47–107; PULSE 60–94; RESP 13–26; TEMP 36.1–36.8; O2SAT 72–100; BMI 34.4
--- NOTE | 2022-03-06 | SCC_ITS ---
Procedure done: Mediport placement, right axillary sentinel lymph node biopsy, right mastectomy 5.3 seconds of fluoroscopic guidance, for a cumulative dose of 1.02 mGy, was provided to Dr. Chapman by the radiology department. C-arm images of the chest were saved for the patient's permanent record. [facility]
--- NOTE | 2022-03-06 07:24 | SC_ITS ---
WS: [id number] INTRAOPERATIVE TECHNIQUE: 3 Spot fluoroscopic images for intraoperative purposes. FLUOROSCOPY TIME: 5.3 seconds CLINICAL INFORMATION: mediport placement COMPARISON: None. FINDINGS: Endotracheal tube with tip above the wan. Cardiac pacer. No visualized pneumothorax. LEFT Port-A-Cath with tip in the mid SVC. SC/C-arm [place] CVA [id number] IMPRESSION: Images obtained for intraoperative purposes.
--- NOTE | 2022-03-06 08:41 | NM_ITS ---
WS: [id number] SENTINEL NODE TECHNIQUE: RIGHT sentinel node injection CLINICAL INFORMATION: Right lymph node biopsy COMPARISON: None. PROCEDURE: The procedure including risks, benefits, and complications were discussed; the patient agr eed to proceed. Patient was prepped and draped in usual sterile fashion. Subsequently, 1% lidocaine p reservative-free was administered at the 12:00, 3:00, 6:00, and 9:00 o'clock positions for local anes thesia. Subsequently, 4 aliquots of filtered technetium 99m sulfur colloid was injected into the subc utaneous soft tissues. A total dose of 0.95 mCi was administered. Patient tolerated the procedure well with no immediate complications. MT/NM sentinel node inject [id number] IMPRESSION: Uncomplicated RIGHT breast sentinel node injection with a total dose of 0.95 mC i.
--- NOTE | 2022-03-06 08:44 | PC.NURSE ---
0.95 mCi Tc99m Filtered Sulfur Colloid Injected into RIGHT breast at 8:[address] Rubén Solo.
[2022-03-06] MEDS: heparin 5,000 unit/mL INJ 1 mL 5000 UNIT SUBCUT (08:59)
[2022-03-06] MEDS: sodium chloride 0.9% 1,000 ML 30 ML IV (09:03)
[2022-03-06] MEDS: scopolamine 1.5 Patch 1 PATCH TRANSDERMA (09:14)
--- NOTE | 2022-03-06 09:29 | ANES.PREANE2 ---
Pre-Anesthetic Assessment Height/Weight: Height 1.55 m Weight 79.379 kg Temp Pulse Resp BP Pulse Ox 97 F L 64 16 122/78 96 03/06/22 07:39 03/06/22 07:39 03/06/22 07:39 03/06/22 07:39 03/06/22 07:39 Preop Diagnosis: Right breast cancer Operation Date: 02/26/22 10:50 Proposed Procedures p sentinel lymph node biospy 00623, [id number] port placement 90175,C50.811(Right) - Lawson Chapman, DO s Portacath Placement(Not Applicable) - Lawson Chapman, DO s Mastectomy Simple(Right) - Lawson Chapman DO Operation Date: 03/06/22 11:30 Proposed Procedures p sentinel lymph node biospy 93233, 22401, port placement 87576,C50.811(Right) - Lawson Chapman DO s Portacath Placement(Not Applicable) - Lawson Chapman, s Mastectomy Simple(Right) - Lawson Chapman DO Familial anesthetic complications: None Was Beta João taken within 24 hours: N/A Was Clonidine taken within 24 hours: N/A Last intake: Intake Last Liquid Date 03/05/22 Last Liquid Time 21:00 Last Solid Date 03/05/22 Last Solid Time 20:00 Social No alcohol and No tobacco Exam alert, oriented x 3, clear to auscultation bilaterally and regular rate & rhythm Airway Submandibular: within normal limits Cervical ROM: within normal limits Mallampati: Class II Dentition: false CV/HEM Hypertension and Murmur (mild and MS) Pacemaker, PHTN CONCLUSIONS ?1. Normal left ventricular size, systolic function and increased ?wall thickness, with no regional wall motion abnormalities. Left ?ventricular ejection fraction is estimated at 70 %. Grade II ?diastolic dysfunction, moderately elevated filling pressures. ?2. Normal right ventricular size and systolic function. ?3. Mild aortic valve stenosis, peak velocity 2.7 m/sec, peak ?gradient 29 mm Hg, mean gradient 15 mmHg, UDAY 1.5 cm squared. ?4. Mild tricuspid valve regurgitation. ?5. Severe mitral annular calcification. Moderately thickened ?mitral valve. Possible mild mitral valve stenosis with mean ?gradient of 3 mm Hg . Mild mitral valve regurgitation. ?6. Severe pulmonary hypertension with pulmonary artery pressure ?estimated at 62 mm Hg. ?7. When compared to previous study dated 06/27/2020, there may ?not have been any significant changes. Metabolic Hyperlipidemia, Morbid Obesity and Thyroid Disease Anesthetic Plan ASA status: 3 Anesthesia: General Medications/Allergies Home Medications Medication Instructions Recorded Confirmed Last Taken Type apixaban 5 mg tablet (Eliquis) 5 mg PO BID 07/16/20 03/05/22 03/02/22 History duloxetine 60 mg capsule,delayed 60 mg PO DAILY 07/16/20 03/06/22 03/06/22 History release gabapentin 800 mg tablet 1,600 mg PO BID tab 07/16/20 03/06/22 03/05/22 History levothyroxine 125 mcg tablet 125 mcg PO DAILY 07/16/20 03/06/22 03/05/22 History famotidine 20 mg tablet 20 mg PO DAILY #30 tab 12/25/20 03/06/22 03/05/22 Rx furosemide 20 mg tablet 20 mg PO DAILY #90 tab 12/25/20 03/06/22 03/02/22 Rx metoprolol tartrate 25 mg tablet 25 mg PO DAILY #90 tab 12/25/20 03/06/22 03/06/22 Rx albuterol sulfate 90 mcg/actuation 1 inh INHALATION QID PRN 04/19/21 03/06/22 03/04/22 History aerosol inhaler cyanocobalamin (vitamin B-12) 1,000 mcg PO DAILY 04/19/21 03/06/22 03/05/22 History 1,000 mcg tablet (Vitamin B-12) nortriptyline 50 mg capsule 50 mg PO BEDTIME 04/19/21 03/06/22 03/05/22 History cholecalciferol (vitamin D3) 25 25 mcg PO DAILY 12/26/21 03/06/22 03/05/22 History mcg (1,000 unit) capsule losartan 50 mg tablet 75 mg PO DIRECTED #135 tab 12/26/21 03/06/22 03/04/22 Rx atorvastatin 20 mg tablet 20 mg PO DAILY 02/21/22 03/06/22 03/05/22 History budesonide-formoterol HFA 80 1 puff INHALATION BID 02/21/22 03/06/22 Unknown History mcg-4.5 mcg/actuation aerosol inhaler (Symbicort) cetirizine 10 mg tablet (Zyrtec) 10 mg PO DAILY PRN tab 02/21/22 03/06/22 03/05/22 History inhalat.spacing dev,large mask 02/21/22 02/24/22 Unknown History (BreatheRite Spacer-Mask,Adult) thiamine HCl (vitamin B1) 250 mg 250 mg PO DAILY 02/24/22 03/06/22 03/05/22 History tablet hydrocodone 5 mg-acetaminophen 325 1 tab PO Q6H PRN 02/25/22 03/06/22 03/05/22 History mg tablet Allergies Allergy/AdvReac Type Severity Reaction Status Date / Time fentanyl Allergy ADR-Drowsy Verified 02/25/22 13:35 oxycodone [From OxyContin] Allergy ADR-Drowsy Verified 02/25/22 13:35 Current Medications Generic Name Dose Route Start Last Admin Trade Name Freq PRN Reason Stop Dose Admin Sodium Chloride 1,000 mls @ 30 mls/hr 03/06/22 07:30 03/06/22 09:03 Sodium Chloride 0.9% IV 03/07/22 07:29 30 mls/hr .Q24H MEG Administration PFSH Anesthesia Medical History Atrial fibrillation Borderline diabetes Charcot's arthropathy GERD (gastroesophageal reflux disease) Hyperlipidemia Hypertension Hypothyroidism Peripheral neuropathy Surgical History History of cataract removal with insertion of prosthetic lens History of cholecystectomy (1982) History of knee replacement right total knee arthroplasty in 1994 and in 2004 History of removal of cervix but not uterus History of shoulder surgery (2006) rotator cuff repair on the left S/P cardiac pacemaker procedure Status post surgical removal of malignant neoplasm of skin skin cancer excisions from the right arm and left protestant Family History Mother Dementia Father Lung disease Suicide Other Anemia CAD (coronary artery disease) Diabetes Heart disease Hyperlipidemia Hypertension Denies family history of Clotting disorder Psychiatric illness Chronic kidney disease (CKD) Anesthesia complication Bleeding disorder Cancer Stroke Social History Smoking and tobacco status: former smoker Alcohol intake: never Data Anesthesia Cardiac Studies: Echocardiogram 12/20/21 Echocardiogram Ultrasound 06/27/20 Sestamibi Stress Test (Cardiology) 12/01/20
--- NOTE | 2022-03-06 14:01 | W.PM.OPSUD ---
Surgery/Procedure H&P Update DATE OF PROCEDURE: March 06, 2022 DATE H&P PERFORMED: 02/24/22 CHANGES TO PREVIOUS DOCUMENTATION: NONE PREOP DIAGNOSIS: Right breast cancer PRIMARY INDICATION FOR PROCEDURE: Right breast cancer PLANNED PROCEDURE: Operation Date: 02/26/22 10:50 Proposed Procedures p sentinel lymph node biospy 20191, [id number] port placement 12088,C50.811(Right) - Lawson Chapman DO s Portacath Placement(Not Applicable) - DO pelon Espinal Mastectomy Simple(Right) - Lwason Chapman DO Operation Date: 03/06/22 10:50 Proposed Procedures p sentinel lymph node biospy 90517, 63215, port placement 86142,C50.811(Right) - DO pelon Espinal Portacath Placement(Not Applicable) - DO pelon Espinal Mastectomy Simple(Right) - Lawson Chapman DO
[2022-03-06] MEDS: heparin, porcine 1,000 unit/mL INJ 10 mL 10000 UNIT IRRIGATION (14:41)
[2022-03-06] MEDS: isosulfan blue 10 mg/mL SDV 5mL SUBCUT (15:13)
[2022-03-06] MEDS: levalbuterol 0.63 mg/3 mL Neb INHALATION ×2 (18:03→18:31)
[2022-03-06] MEDS: hyDRALAzine 20 mg/mL INJ 1 mL 10 MG IVP (18:06)
--- NOTE | 2022-03-06 18:38 | XRR_ITS ---
PROCEDURE INFORMATION: Exam: XR Chest Exam date and time: 03/06/2022 6:45 PM Age: 86 years old Clinical indication: Shortness of breath; Prior surgery; Surgery date: Post-operative (0-2 days); Surgery type: Port; Additional info: Post op shortness of breath TECHNIQUE: Imaging protocol: XR of the chest. Views: 1 view. COMPARISON: CR XR chest 1V portable [id number] 04/19/2021 12:27 PM FINDINGS: Lungs: Hypoinflated lungs. Ill-defined opacities in the right upper lung. No consolidation. Pleural spaces: No pleural effusion. No pneumothorax. Heart/Mediastinum: No cardiomegaly. Two lead pacer device noted in the left chest wall. Bones/joints: Visualized osseous structures are intact. Moderate DJD of both shoulders. New line cholecystectomy clips noted. Soft tissues: Air noted within the soft tissues of the right mid lower chest wall neck corresponding to recent surgical procedure. XR/XR chest 1V portable [id number] IMPRESSION: Hypoinflated lungs. Ill-defined opacities in the right upper lung which may relate to atelectasis with infiltrates not excluded.
[2022-03-06] MEDS: FUROsemide 10 mg/mL SDV 2mL IVP (18:49)
[2022-03-06] MEDS: lactated ringers 1,000 ML 50 ML IV (20:07)
--- NOTE | 2022-03-06 20:46 | PC.NURSE ---
Physician Communication Patient has two fluid orders in DEC, NS to administer at 30 ml/hr and LR to administer at 50 ml/hr. Dr. Chapman called for clarification of order; verbal order received to administer LR and discontinue NS. Additional order received to obtain CBC/BMP now and in the morning. Furthermore, activity restrictions discussed; patient allowed up ad seble.
[2022-03-06 21:38] LABS: Basophils % 0.2 %; Eosinophils % 0.2 %; Hematocrit 35.4 % (37.0-47.0); Hemoglobin 11.4 g/dL (11.5-15.3); Lymphocytes # 0.6 10^3/uL (0.8-4.8); Lymphocytes % 4.6 %; Mean Corpuscular HGB Conc 32.2 g/dL (30.0-36.0); Mean Corpuscular Hemoglobin 31.5 pg (28.0-34.0); Mean Corpuscular Volume 97.8 fl (81-99); Mean Platelet Volume 10.2 fL (7.4-10.4); Monocytes # 0.4 10^3/uL (0.2-0.9); Monocytes % 3.7 %; Neutrophils # 10.81 10^3/uL (1.8-7.7); Neutrophils % 90.6 %; Nucleated Red Blood Cells % 0 %; Platelet Count 188 10^3/cmm (130-400); Red Blood Count 3.62 10^6/uL (4.1-5.3); Red Cell Distribution Width 13.2 % (12.1-15.1); White Blood Count 11.9 10^3/uL (4.0-10.0)
[2022-03-06 21:51] LABS: Anion Gap 16.3 (5-19); Blood Urea Nitrogen 16 mg/dL (8-23); Calcium 8.8 mg/dL (8.5-10.5); Carbon Dioxide 23 mmol/L (22-29); Chloride 103 mmol/L (98-107); Glucose 156 mg/dL (65-115); Osmolality Calculated 290 mOsm/kg (285-295); Potassium 4.3 mmol/L (3.5-5.1); Sodium 138 mmol/L (136-145)
--- NOTE | 2022-03-06 22:10 | PM.OP ---
Operative Report Date of procedure: March 06, 2022 Pre-op diagnosis: Preop Diagnosis Right breast cancer Post-op diagnosis: Right breast cancer Procedure done: Mediport placement, right axillary sentinel lymph node biopsy, right mastectomy Specimens removed/disposition: Right axillary sentinel lymph node for frozen section, Surgeon: Dr. Lawson Chapman DO Estimated blood loss: 50 Complications: None apparent Findings: Benign appearing sentinel lymph node Brief History: This is a very pleasant 86-year-old female with a rather aggressive right breast carcinoma. It has significantly grown in size since office visit last week. The risks and benefits were explained to the patient and are documented in the chart. Procedure: The patient was taken to the operating room and placed supine on the operating room table. All bony prominences were padded. She was given IV sedation and monitored throughout the case by the anesthesia personnel. SCDs were placed and turned on. The arms were tucked to the side. Patient received Ancef 2 g preoperatively IV. The bilateral chest wall was prepped and draped in usual sterile fashion using chlorhexidine base prep. Sterile drapes were applied. We did procedure pause prior to beginning. An 18 gauge needle was placed in the left subclavian vein. Dark, nonpulsatile blood was aspirated. A guidewire was placed through the needle centrally toward the atrial/vena caval junction. Fluoroscopy visualized good placement. The needle was removed and the guidewire was clipped to the drape with a hemostat. Further local anesthetic was infiltrated in the soft tissues of the right/left chest wall and a #15 blade was used to make a horizontal skin incision. A subcutaneous Mediport pocket was created using Bovie cautery, dissecting down through the skin and subcutaneous tissues. The Mediport was placed superior to her pacemaker. Meticulous hemostasis was achieved. The Mediport was sutured in position using 3-0 vicryl suture x2 stitches. A #15 blade was used to make a small skin kimber around the guidewire insertion area. The Mediport tubing was tunneled through the subcutaneous tissues up to the needle insertion location. A dilator with a peel-away sheath was placed over the guidewire and placed centrally. After measuring with fluoroscopy, the Mediport tubing was cut to length so that the tip would end at the atrial/vena caval junction. The inner cannula and the guidewire were removed, leaving the dilator sheath in place. The Mediport was flushed. The tip of the catheter was inserted through the peel-away sheath and the peel-away sheath removed in the standard fashion. The Mediport was accessed with a straight Negron needle and dark, nonpulsatile blood was aspirated and flushed using heparinized saline to hep-lock the Mediport. Final fluoroscopy visualization showed no kink in the catheter and the tip of the Mediport tubing near the atrial/vena caval junction. Both skin incisions were thoroughly irrigated and suctioned dry. Meticulous hemostasis noted. The Mediport incision was closed using interrupted 3-0 Vicryl suture for the deep dermal layer and 4-0 Vicryl run to close the skin edge. The right/left subclavian insertion site incision was closed with a single subcuticular stitch. Skin glue was applied as a topical dressing. This was allowed to dry. We then took down the drapes. Lymphazurin blue was injected subareolar bleeding and into the mass. These areas were massaged for 5 minutes. We reprepped the right breast and right axilla. A second timeout was performed. All present were in agreement. A horizontal excision was made from medial to the latissimus dorsi to lateral to the sternum, encompassing the nipple. The lateral dissection was performed first. I dissected down to the latissimus dorsi and superior to the fascia using Bovie cautery. Using Bovie cautery I look for a sentinel node. With much exploration, no lymph node could be found with a significant Fam counter or blue dye. A sentinel node was identified, however it appeared benign. This was removed and sent for frozen section. Attention was then brought back to the mastectomy. The horizontal ellipse excision was made with a 15 blade scalpel and carried down to the fatty tissue with Bovie cautery. I started with the superior flap and removed all the breast tissue using Bovie cautery. This was carried up to the clavipectoral fascia and down to the pectoralis major. All breast tissue was removed laterally to the latissimus dorsi and proximally to the sternum. I then went to the posterior flap all breast tissue was removed with Bovie cautery down to the inframammary fold. The large carcinoma at the 6 o'clock position was very close to the skin. She may likely have positive margins on the skin side, however there was no further tissue to take. I carried the dissection down to the pectoralis major and removed all the breast tissue in its entirety. Hemostasis was achieved with electrocautery and medium sized clips. The breast was removed and a stitch was placed on the medial margin to tahmina the specimen. The specimen was passed off. The surgical field was irrigated and suctioned. There was no signs of bleeding. Dangelo was placed into the cavity. A 19 Divehi Magdiel drain was then placed underneath the skin. Dermis was then approximated with 3-0 Vicryl in interrupted fashion. Skin was then closed with 4-0 Vicryl in a subcuticular running fashion. Patient tolerated the procedure well and was wheeled in the postoperative anesthesia care unit in good condition.
[2022-03-06] MEDS: ketorolac 30 mg/mL INJ 15 MG IVP (22:49)
[2022-03-07] VITALS (48 sets, daily range): BP systolic 85–129; BP diastolic 41–78; PULSE 60–75; RESP 14–25; TEMP 36.6–37; O2SAT 86–99; BMI 34.7
[2022-03-07 04:02] LABS: Basophils % 0.1 %; Eosinophils % 0.1 %; Hematocrit 33.2 % (37.0-47.0); Hemoglobin 10.2 g/dL (11.5-15.3); Lymphocytes % 10.8 %; Mean Corpuscular HGB Conc 30.7 g/dL (30.0-36.0); Mean Corpuscular Hemoglobin 30.5 pg (28.0-34.0); Mean Corpuscular Volume 99.4 fl (81-99); Mean Platelet Volume 10.2 fL (7.4-10.4); Monocytes # 0.9 10^3/uL (0.2-0.9); Neutrophils # 6.95 10^3/uL (1.8-7.7); Neutrophils % 78.4 %; Nucleated Red Blood Cells % 0 %; Platelet Count 181 10^3/cmm (130-400); Red Blood Count 3.34 10^6/uL (4.1-5.3); Red Cell Distribution Width 13.3 % (12.1-15.1); White Blood Count 8.9 10^3/uL (4.0-10.0)
[2022-03-07] MEDS: ketorolac 30 mg/mL INJ 15 MG IVP ×2 (04:24→12:18)
[2022-03-07 08:00] LABS: Anion Gap 15.7 (5-19); Blood Urea Nitrogen 19 mg/dL (8-23); Calcium 8.6 mg/dL (8.5-10.5); Carbon Dioxide 25 mmol/L (22-29); Chloride 99 mmol/L (98-107); Glucose 116 mg/dL (65-115); Osmolality Calculated 283 mOsm/kg (285-295); Potassium 4.7 mmol/L (3.5-5.1); Sodium 135 mmol/L (136-145)
--- NOTE | 2022-03-07 09:27 | PC.CHAP ---
Pastoral Care Encounter/Spiritual Assessment Type of Contact [] Declined technical developer visit [] Patient/Family/Request visit [] Outpatient visit [] Follow-up visit [] Physician referral [] Code/Alert [x] Routine visit [] Staff referral [] Actively dying [x] Patient sleeping [] Family support [] [] Out of room [] Palliative care [] [] Receiving care in room [] Pre-surgical visit [] Trauma [] Long length of stay [x] ICU visit [x] Other: setting in chair Relational/Emotional Strength [] Patient feels connected with others/family/visitors/staff [] Distress [] Loneliness/isolation [] Abandonment Spirituality of Patient [] Person of Ira [] Attends Pentecostalism of their [place] [] Believes in Prayer [] Reads Bible or Protestant materials [] There are Spiritual issues to be addressed Women Designer Interventions [x] Prayer [] Active listening [] Non-anxious presence [] Spiritual/emotional support [] Crisis/trauma care [] Spiritual counseling [] Bereavement support [] Provided bereavement packet [] Provided Bible/devotional materials [] Provided toy/stuffed animal, coloring book to patient or family member [] Provided Communion [] Anointing/[place] [] Salvation [x] Completed spiritual assessment [] Other: Impact on Illness or Injury [] Angry [] Fearful [] Anxious [] Often cries [] Exhaustion [] Unable to work [] Unable to attend tenriism [] Unable to walk/stand [] Unable to read [] Unable to drive [] Unable to eat/drink [] Unable to sleep [] Unable to be with family [] Patient intubated [] Other: Summary Time spent with patient
--- NOTE | 2022-03-07 11:00 | ANE.PACU2 ---
Inpatient post-anesthesia follow up: Airway intact: Yes Vital signs: Temperature 97.8 F Pulse Rate 67 Respiratory Rate 17 Blood Pressure 96/45 Pulse Oximetry 90 Oxygen Delivery Me thod Room Air Oxygen Flow Rate 1 Fraction of Inspir ed Oxygen Hydration adequate: Yes Nausea and vomiting: No Pain level: 2 Mental status: Baseline
--- NOTE | 2022-03-07 13:27 | P.DS_ITS ---
Discharge Providers Date of Admission: 03/06/22 17:11 Date of Discharge: March 07, 2022 Attending Provider at Admission: Lawson Chapman DO Attending Provider at Discharge: Lawson Chapman DO Primary Care Provider: Mone Chowdhury MD Diagnoses at Discharge Discharge Diagnosis (1) Triple negative breast cancer: Status: Acute Reason for Visit Reason for Visit: C50.811/67123 Brief History: Patient underwent Mediport placement, right mastectomy and sentinel lymph node biopsy for triple negative breast cancer Hospital Course Hospital Course Patient underwent Mediport placement, right mastectomy and sentinel lymph node biopsy for triple negative breast cancer. Surgery was uneventful. She stayed 1 day afterwards for pain control. She did have some minor hypoxia in the PACU and required oxygen therapy. Physical Exam Narrative: General : Patient is well developed , no acute distress, oriented x3 Head : Normal cephalic, a-traumatic. Ears : Pinnae and external canal are normal. Hearing is normal. Eyes : PERRLA, Sclera and injection are normal. No conjunctival discharge. Nose : Mucous membranes are without erythema. Throat : buccal mucosa is normal, gums are without significant recession or hypertrophy. Breast: Right mastectomy incision is intact without erythema or exudate. Drain is sanguinous. Lungs : Equal chest rise bilaterally, no use of accessory muscles, trachea is midline. Cor : Rate and rhythm are normal. Abdomen : Soft, ND, NT, no g/r/m Extremities : No edema, no cyanosis or clubbing, dorsalis pedis pulses are present bilaterally, non-tender to palpation of calves. Upper extremities are normal bilaterally. Back : non-tender to palpation, no CVA tenderness. Neuro : CN II - XII intact, Upper and lower extremities have equal and full strength Discharge Data Studies Completed and Pending Completed Studies During Hospitalization Category Date Time Status XR chest 1V portable [id number] Routine Exams 03/06/22 18:38 Completed NM sentinel node inject [id number] Routine Nuc Med 03/06/22 08:41 Completed Pending at discharge Category Date Time Status Pathology: Surgical [PTH] Routine Pth 03/06/22 18:51 Received Radiology Impressions C-Arm Fluoroscopy 03/06/22 07:24 IMPRESSION: Images obtained for intraoperative purposes. [place] Node 03/06/22 08:41 IMPRESSION: Uncomplicated RIGHT breast sentinel node injection with a total dose of 0.95 mCi. Chest X-Ray 03/06/22 18:38 IMPRESSION: Hypoinflated lungs. Ill-defined opacities in the right upper lung which may relate to atelectasis with infiltrates not excluded. Laboratory Results WBC 8.9 10^3/uL (4.0-10.0) 03/07/22 03:20 RBC 3.34 10^6/uL (4.1-5.3) L 03/07/22 03:20 Hgb 10.2 g/dL (11.5-15.3) L 03/07/22 03:20 Hct 33.2 % (37.0-47.0) L 03/07/22 03:20 MCV 99.4 fl (81-99) H 03/07/22 03:20 MCH 30.5 pg (28.0-34.0) 03/07/22 03:20 MCHC 30.7 g/dL (30.0-36.0) 03/07/22 03:20 RDW 13.3 % (12.1-15.1) 03/07/22 03:20 Plt Count 181 10^3/cmm (130-400) 03/07/22 03:20 MPV 10.2 fL (7.4-10.4) 03/07/22 03:20 Neut % (Auto) 78.4 % 03/07/22 03:20 Lymph % (Auto) 10.8 % 03/07/22 03:20 [place] % (Auto) 10.0 % 03/07/22 03:20 Eos % (Auto) 0.1 % 03/07/22 03:20 Baso % (Auto) 0.1 % 03/07/22 03:20 Neut # (Auto) 6.95 10^3/uL (1.8-7.7) 03/07/22 03:20 Lymph # (Auto) 1.0 10^3/uL (0.8-4.8) 03/07/22 03:20 [place] # (Auto) 0.9 10^3/uL (0.2-0.9) 03/07/22 03:20 Eos # (Auto) 0.0 10^3/uL (0.0-0.8) 03/07/22 03:20 Baso # (Auto) 0.0 10^3/uL (0.0-0.1) 03/07/22 03:20 Nucleated RBC % (auto) 0 % 03/07/22 03:20 Nucleated RBCs # 0.0 /100WBC 03/07/22 03:20 Sodium 135 mmol/L (136-145) L 03/07/22 07:13 Potassium 4.7 mmol/L (3.5-5.1) 03/07/22 07:13 Chloride 99 mmol/L (98-107) 03/07/22 07:13 Carbon Dioxide 25 mmol/L (22-29) 03/07/22 07:13 Anion Gap 15.7 (5-19) 03/07/22 07:13 BUN 19 mg/dL (8-23) 03/07/22 07:13 Creatinine 1.0 mg/dL (0.5-0.9) H 03/07/22 07:13 GFR Calculation Not Reportable 03/07/22 07:13 Glucose 116 mg/dL (65-115) H 03/07/22 07:13 Calculated Osmolality 283 mOsm/kg (285-295) L 03/07/22 07:13 Calcium 8.6 mg/dL (8.5-10.5) 03/07/22 07:13 Vitals Last Vital Signs Temp 97.8 F 03/07/22 04:00 Pulse 67 03/07/22 10:00 Resp 17 03/07/22 10:00 BP 96/45 03/07/22 10:00 Pulse Ox 90 03/07/22 10:00 Discharge Plan Discharge Patient Disposition: Home Condition: Stable Prescriptions: New hydrocodone-acetaminophen 5-325 mg Tablet 1 tab PO Q6H PRN (Reason: Pain, Moderate) Qty: 30 0RF Continued metoprolol tartrate 25 mg tablet 25 mg PO DAILY Qty: 90 2RF famotidine 20 mg tablet 20 mg PO DAILY Qty: 30 2RF furosemide 20 mg tablet 20 mg PO DAILY Qty: 90 2RF cholecalciferol (vitamin D3) 25 mcg (1,000 unit) capsule 25 mcg PO DAILY 0RF losartan 50 mg tablet 75 mg PO DIRECTED Qty: 135 3RF Rx Instructions: Take 50mg in AM and 25mg in PM duloxetine 60 mg capsule,delayed release(DR/EC) 60 mg PO DAILY 0RF gabapentin 800 mg tablet 1,600 mg PO BID 0RF levothyroxine 125 mcg tablet 125 mcg PO DAILY 0RF cetirizine [Zyrtec] 10 mg tablet 10 mg PO DAILY PRN (Reason: Allergy Symptoms) 0RF (DME) BreatheRite Spacer-Mask,Adult Spacer See Rx Instructions .Route 0RF Rx Instructions: As directed budesonide-formoterol [Symbicort] 80-4.5 mcg/actuation HFA aerosol inhaler 1 puff inhalation BID 0RF atorvastatin 20 mg tablet 20 mg PO DAILY 0RF thiamine HCl (vitamin B1) 250 mg tablet 250 mg PO DAILY 0RF cyanocobalamin (vitamin B-12) [Vitamin B-12] 1,000 mcg Tablet 1,000 mcg PO DAILY 0RF albuterol sulfate 90 mcg/actuation Hfa Aerosol Inhaler 1 inh INHALATION QID PRN (Reason: Shortness Of Breath) 0RF nortriptyline 50 mg Capsule 50 mg PO BEDTIME 0RF hydrocodone-acetaminophen 5-325 mg Tablet 1 tab PO Q6H PRN (Reason: Pain, Moderate) 0RF Vitamin C 100 mg Tablet 100 mg PO DAILY 0RF vitamin A-vitamin C-vit E-min Tablet 1 tab PO DAILY 0RF Held Eliquis 5 mg tablet 5 mg PO BID 0RF Hold Instructions: Resume on 03/10/22. Discharge Orders: Discharge Order (Routine); Ordered 03/07/22 Ordered By: Lawson Chapman Referrals: Mone Chowdhury MD [Primary Care Provider] - 4-7 days Lawson Chapman DO [Physician] - 2 weeks Discharge Diet: Advance as tolerated Discharge Activity: Resume usual activity Patient Instructions: Opioid Safety Activity Restrictions/Additional Instructions: Do not soak incisions underwater. May shower normally. Empty drain as needed. Try Aleve for pain control for trying the narcotics. Discharge Attestations Time Spent in Discharge Care*: less than 30 min Quality Metrics Clinical Quality Measures [ No reported AMI, CVA or VTE this stay] Coding Level of Care Code Acute Chg [facility] note Diagnoses Triple negative breast cancer C50.919
--- NOTE | 2022-03-07 14:23 | PC.NURSE ---
Pt was discharged to personal vehicle. All discharge instructions demonstrated using the teach back method. All questions answered. Dressing dry and intact.
[2022-03-13 09:57] LABS: Miscellaneous Test See Scanned Lab Rpt
== END 2022-03-07 14:20 | disposition home or self-care (01) ==
LOC: ICU 22:22 → MEDSURG 03-07 06:33
PROVIDERS: Admitting Provider Surgery; PCP Internal Medicine; Visit Provider Surgery
PROC: (CPT 19303; principal; 2022-03-06 10:50)
PROC: (CPT 19303; 2022-03-06 10:50)
PROC: (CPT 19303; 2022-03-06 10:50)
DX: C50.811 Malignant neoplasm of overlapping sites of right female breast (principal); I10 Essential (primary) hypertension; Z95.0 Presence of cardiac pacemaker; I48.91 Unspecified atrial fibrillation; K21.9 Gastro-esophageal reflux disease without esophagitis; E78.5 Hyperlipidemia, unspecified; E03.9 Hypothyroidism, unspecified; Z87.891 Personal history of nicotine dependence
CPT/HCPCS: 19303; 36561; 38500; 36415; 38792; 71045; 77001; 80048; 85025; 88307; 88309; 88361; 88374; A9541; C1788; G0378; J0360; J1100; J1644; J1885; J1940; J2405; J2704; J3010; J7030; J7614; Q9968

== ENCOUNTER → 2022-03-11 08:12 | Outpatient (BNVA) | payer MEDICARE, SELFPAY | PROVIDERS: PCP Internal Medicine; Visit Provider Surgery | DX: Z98.890 Other specified postprocedural states (principal); C50.919 Malignant neoplasm of unspecified site of unspecified female breast | CPT/HCPCS: 99024 ==

== ENCOUNTER → 2022-03-20 09:43 | Outpatient (BNVA) | payer MEDICARE, SELFPAY | PROVIDERS: PCP Internal Medicine; Visit Provider Surgery | DX: Z98.890 Other specified postprocedural states (principal); C50.811 Malignant neoplasm of overlapping sites of right female breast | CPT/HCPCS: 99024 ==

== ENCOUNTER 2022-03-28 11:00 | Oncology outpatient (recurring) (ONCR) | payer MEDICARE, SELFPAY ==
--- NOTE | 2022-03-28 11:00 | US_ITS ---
WS: [id number] ULTRASOUND SOFT TISSUES LEFT chest. HISTORY: incisional drainage COMPARISON: None available. TECHNIQUE: 2-D and color Doppler imaging is submitted. Ultrasound is directed to the LEFT chest at the area of in the Mediport. There is a large amount shad owing from the port. No fluid collection is identified. No abnormality. US/US soft tissue/extremity [id number] IMPRESSION: No soft tissue abnormality at the region of the LEFT Mediport.
--- NOTE | 2022-03-28 11:32 | US_ITS ---
WS: [id number] Exam: US breast RT complete [id number] Date/Time of Exam: 03/28/2022 11:34 AM Reason For Exam: surgical site with drainage Right breast mastectomy incision is targeted for ultrasound evaluation. Just deep to the incision a very large fluid collection with some septations is identified. The colle ction measures approximately 10.4 cm from superior to inferior and about 4.5 cm at greatest depth. Th e collection is extensive in the transverse dimension. This likely represents a seroma, hematoma or l ess likely an abscess. US/US breast RT complete [id number] IMPRESSION: 1. Very large subcutaneous septated fluid collection just deep to right breast mastectomy incision most likely representing seroma or hematoma. An abscess is also possible but felt to be less likely.
== END 2022-04-03 23:59 | disposition home or self-care (01) ==
PROVIDERS: PCP Internal Medicine; Visit Provider Nurse Practitioner Family
DX: C50.811 Malignant neoplasm of overlapping sites of right female breast (principal); Z17.1 Estrogen receptor negative status [ER-]; Z90.11 Acquired absence of right breast and nipple; N61.1 Abscess of the breast and nipple; L53.9 Erythematous condition, unspecified; I48.91 Unspecified atrial fibrillation; I10 Essential (primary) hypertension; Z87.891 Personal history of nicotine dependence; Z79.2 Long term (current) use of antibiotics; Z79.899 Other long term (current) drug therapy; Z53.9 Procedure and treatment not carried out, unspecified reason
CPT/HCPCS: 76641; 76882; 99215; G0463

== ENCOUNTER → 2022-03-31 09:45 | Outpatient (BNVA) | payer MEDICARE, SELFPAY | PROVIDERS: PCP Internal Medicine; Visit Provider Surgery | DX: L03.90 Cellulitis, unspecified (principal) | CPT/HCPCS: 10140; 99024 ==

== ENCOUNTER → 2022-04-11 10:21 | Outpatient (BNVA) | payer MEDICARE, SELFPAY | PROVIDERS: PCP Internal Medicine; Visit Provider Surgery | DX: Z98.890 Other specified postprocedural states (principal); C50.919 Malignant neoplasm of unspecified site of unspecified female breast | CPT/HCPCS: 99024 ==

== ENCOUNTER → 2022-04-25 10:22 | Outpatient (BNVA) | payer MEDICARE, SELFPAY | PROVIDERS: PCP Internal Medicine; Visit Provider Surgery | DX: Z98.890 Other specified postprocedural states (principal); C50.919 Malignant neoplasm of unspecified site of unspecified female breast | CPT/HCPCS: 99024 ==

== ENCOUNTER 2022-04-29 10:43 | Oncology outpatient (recurring) (ONCR) | payer MEDICARE, SELFPAY ==
[2022-04-29 12:24] LABS: Basophils % 0.4 %; Eosinophils # 0.4 10^3/uL (0.0-0.8); Eosinophils % 6.1 %; Hematocrit 35.4 % (37.0-47.0); Hemoglobin 11.4 g/dL (11.5-15.3); Lymphocytes # 1.4 10^3/uL (0.8-4.8); Lymphocytes % 21.3 %; Mean Corpuscular HGB Conc 32.2 g/dL (30.0-36.0); Mean Corpuscular Hemoglobin 30.8 pg (28.0-34.0); Mean Corpuscular Volume 95.7 fl (81-99); Mean Platelet Volume 9.7 fL (7.4-10.4); Monocytes # 0.6 10^3/uL (0.2-0.9); Monocytes % 9.1 %; Neutrophils # 4.19 10^3/uL (1.8-7.7); Neutrophils % 62.8 %; Nucleated Red Blood Cells % 0 %; Platelet Count 215 10^3/cmm (130-400); Red Cell Distribution Width 13.9 % (12.1-15.1); White Blood Count 6.7 10^3/uL (4.0-10.0)
[2022-04-29 12:43] LABS: Alanine Aminotransferase 73 U/L (0-33); Albumin Level 4.2 g/dL (3.5-5.2); Alkaline Phosphatase 268 IU/L (35-105); Anion Gap 15.4 (5-19); Blood Urea Nitrogen 19 mg/dL (8-23); Calcium 9.4 mg/dL (8.5-10.5); Carbon Dioxide 27 mmol/L (22-29); Chloride 100 mmol/L (98-107); Globulin 3.4 g/dL (1.3-4.6); Glucose 159 mg/dL (65-115); Osmolality Calculated 290 mOsm/kg (285-295); Potassium 5.4 mmol/L (3.5-5.1); Sodium 137 mmol/L (136-145); Total Bilirubin 0.7 mg/dL (0.15-1.2); Total Protein 7.6 g/dL (6.6-8.7)
[2022-04-29 12:44] LABS: Aspartate Amino Transferase 81 U/L (0-32)
== END 2022-04-29 23:59 | disposition home or self-care (01) ==
PROVIDERS: PCP Internal Medicine; Visit Provider Internal Medicine Medical Oncology
DX: C50.811 Malignant neoplasm of overlapping sites of right female breast (principal); Z17.1 Estrogen receptor negative status [ER-]; Z90.11 Acquired absence of right breast and nipple; I48.91 Unspecified atrial fibrillation; Z95.0 Presence of cardiac pacemaker; G62.9 Polyneuropathy, unspecified; Z79.2 Long term (current) use of antibiotics; Z79.899 Other long term (current) drug therapy; Z95.828 Presence of other vascular implants and grafts; Z45.2 Encounter for adjustment and management of vascular access device
CPT/HCPCS: 36415; 80053; 85025; 99214; 99215

== ENCOUNTER → 2022-05-22 10:24 | Outpatient (BNVA) | payer MEDICARE, SELFPAY | PROVIDERS: PCP Internal Medicine; Visit Provider Surgery | DX: C50.811 Malignant neoplasm of overlapping sites of right female breast (principal) | CPT/HCPCS: 99213 ==

== ENCOUNTER → 2022-05-26 14:17 | Outpatient (BNVA) | payer MEDICARE, SELFPAY | PROVIDERS: PCP Internal Medicine; Visit Provider Internal Medicine Cardiovascular Disease | DX: C50.811 Malignant neoplasm of overlapping sites of right female breast (principal); R06.00 Dyspnea, unspecified; I48.0 Paroxysmal atrial fibrillation; Z79.01 Long term (current) use of anticoagulants; I10 Essential (primary) hypertension; Z95.0 Presence of cardiac pacemaker; E03.9 Hypothyroidism, unspecified; Z87.891 Personal history of nicotine dependence | CPT/HCPCS: 99214 ==

== ENCOUNTER 2022-06-02 10:00 | Oncology outpatient (recurring) (ONCR) | payer MEDICARE, SELFPAY ==
[2022-05-15] MEDS: iohexol 350 mg/mL 100 mL Btl IV (14:18)
--- NOTE | 2022-05-15 15:00 | CT_ITS ---
WS: [id number] CT CHEST, ABDOMEN AND PELVIS WITH CONTRAST HISTORY: Breast ca, elevated liver enzymes, cough TECHNIQUE: Contiguous 5 mm axial imaging performed through the chest, abdomen and pelvis with IV cont rast, oral contrast has been provided. Coronal and sagittal reformats chest. Coronal and sagittal ref ormats through the abdomen and pelvis. All CT scans at [facility] use at least one of these d ose optimization techniques: automated exposure control; mA and/or kV adjustment per patient size (in cludes targeted exams where dose is matched to clinical indication); or iterative reconstruction. CONTRAST: Omnipaque 350; 95 mL IV. DLP: 1667.76 mGy.cm COMPARISON: 09/20/[address]: Mild interstitial thickening. Lung volumes are decreased. No pneumonia or mass. Bilateral g ranulomata. Mild atherosclerosis aorta. Pulmonary artery size is slightly enlarged. Moderate cardiome trey. Dual lead cardiac pacer. Numerous soft tissue collaterals are present in the LEFT chest wall. N ormal enhancement of the SVC. Soft tissue thickening and postsurgical changes along the RIGHT chest wall from recent mastectomy. Po stoperative seroma conforms to the chest wall measuring 8.0 x 1.9 cm. There is an adjacent 9 mm nodul e which may be a separate seroma. This can be evaluated on follow-up imaging studies. No mediastinal or hilar adenopathy. Abdomen CT: Prior cholecystectomy. There are numerous clips at the gallbladder fossa obscuring portio ns of the liver. Mild central bile duct dilatation. No liver lesions. Portal vein is normal. Atrophie d pancreas. Normal spleen. No adrenal mass. Small caliber kidneys. No renal obstruction. Cortical hyp odensities are too small to characterize. Stomach is moderately well distended with oral contrast and food products. No small bowel obstruction . Mild diffuse fecal retention. Numerous diverticula throughout the distal colon. No obstruction. Pelvic CT: Urinary bladder is normally distended. There is a small amount of air in the bladder. No p elvic adenopathy. Atrophic uterus and ovaries. L5 anterolisthesis by 7.5 mm uterus. No osteoblastic or osteolytic bone disease. CT/CT chest abd pel w con* IMPRESSION: 1. Low lung volumes with no pulmonary mass or nodule. 2. Mild diffuse peripheral interstitial thickening. Early changes of pulmonary fibrosis suspected. No UIP. 3. Cardiomegaly. 4. No adenopathy. 5. Postsurgical changes along the anterior RIGHT chest wall from the mastectom y. Postoperative seroma along the RIGHT chest wall measures 8.0 x 1.9 cm. There is a small adjacent 9 mm nodule which can be reevaluated on follow-up chest CT to evaluate for growth. Probably postoperative in etiology. 6. Prior cholecystectomy with mild central bile duct dilatation. No hepatic ma ss. 7. Numerous distal colonic diverticula without acute diverticulitis. 8. Small amount of air in the urinary bladder may be within the bladder wall. Air may be due to recent catheterization, cystitis or enterovesical fistula. 9. No ascites or adenopathy in the abdomen or pelvis.
[2022-06-02 10:33] VITALS: BMI 32.6
[2022-06-02 10:35] LABS: Basophils % 0.1 %; Eosinophils # 0.3 10^3/uL (0.0-0.8); Eosinophils % 3.8 %; Hemoglobin 10.5 g/dL (11.5-15.3); Lymphocytes # 1.1 10^3/uL (0.8-4.8); Lymphocytes % 15.1 %; Mean Corpuscular HGB Conc 32.8 g/dL (30.0-36.0); Mean Corpuscular Hemoglobin 30.5 pg (28.0-34.0); Mean Platelet Volume 9.7 fL (7.4-10.4); Monocytes # 0.7 10^3/uL (0.2-0.9); Monocytes % 10.5 %; Neutrophils # 4.92 10^3/uL (1.8-7.7); Neutrophils % 70.2 %; Nucleated Red Blood Cells % 0 %; Platelet Count 167 10^3/cmm (130-400); Red Blood Count 3.44 10^6/uL (4.1-5.3); Red Cell Distribution Width 13.3 % (12.1-15.1)
[2022-06-02 11:00] LABS: Alanine Aminotransferase 10 U/L (0-33); Albumin Level 3.8 g/dL (3.5-5.2); Alkaline Phosphatase 93 U/L (35-105); Aspartate Amino Transferase 20 U/L (0-32); Blood Urea Nitrogen 9 mg/dL (8-23); Carbon Dioxide 29 mmol/L (22-29); Chloride 101 mmol/L (98-107); Globulin 2.8 g/dL (1.3-4.6); Glucose 97 mg/dL (65-115); Immunoglobulin IGG 1240 mg/dL (700-1600); Osmolality Calculated 285 mOsm/kg (285-295); Sodium 138 mmol/L (136-145); Total Bilirubin 0.7 mg/dL (0.15-1.2); Total Protein 6.6 g/dL (6.6-8.7)
[2022-06-02 11:22] LABS: Hepatitis A Antibody IgM Non-Reactive (Nonreactive); Hepatitis B Core AB, Total Non-Reactive (Nonreactive); Hepatitis B Surface AB 3.5 (11.5-1000); Hepatitis B Surface Antigen Non-Reactive (Nonreactive); Hepatitis C Virus Antibody Non-Reactive (Nonreactive)
[2022-06-02] MEDS: sodium chloride 0.9% 250 ML 100 ML IV (12:28)
[2022-06-02] MEDS: OLANZapine 5 mg TABLET PO (12:30)
[2022-06-02] MEDS: famotidine 20 mg/2 mL INJ IVP (12:31)
[2022-06-02] MEDS: palonosetron 0.25 mg/5 mL SDV IVP (12:31)
[2022-06-02] MEDS: diphenhydrAMINE 50 mg/mL SDV 1mL 25 MG IVP (12:35)
[2022-06-02] MEDS: fosaprepitant 150 MG in sodium chloride 0.9% 150 ML 300 MG IV (13:02)
[2022-06-02] MEDS: cyclophosphamide 1,000 MG in sodium chloride 0.9% 500 ML 500 MG IV (13:42)
[2022-06-02] MEDS: DOXOrubicin 2 mg/ml MDV 106 MG IVP (13:42)
[2022-06-02] MEDS: pegfilgrastim 6 mg/0.6 mL Kit (onpro) SUBCUT (15:09)
[2022-06-02 15:10] VITALS: BP 144/74; PULSE 59; RESP 14; TEMP 36.1; O2SAT 92
== END 2022-06-04 23:59 | disposition home or self-care (01) ==
PROVIDERS: PCP Internal Medicine; Visit Provider Internal Medicine Medical Oncology
DX: Z51.12 Encounter for antineoplastic immunotherapy (principal); Z51.11 Encounter for antineoplastic chemotherapy; C50.811 Malignant neoplasm of overlapping sites of right female breast; Z17.1 Estrogen receptor negative status [ER-]; Z90.11 Acquired absence of right breast and nipple; Z79.899 Other long term (current) drug therapy
CPT/HCPCS: 71260; 74177; 80053; 82784; 85025; 86705; 86706; 86709; 86803; 87340; 96367; 96375; 96377; 96411; 96413; 99214; 99215; J1100; J1200; J1453; J2469; J2506; J3490; J7040; J7050; J9000; J9070

== ENCOUNTER 2022-06-17 12:32 | Emergency (ER) | payer MEDICARE, SELFPAY ==
[2022-06-17 12:45] VITALS: BP 95/54; PULSE 60; RESP 16; TEMP 36.5; O2SAT 95; BMI 31.9
--- NOTE | 2022-06-17 13:05 | XRR_ITS ---
PROCEDURE INFORMATION: Exam: XR Right Knee Exam date and time: 06/17/2022 1:12 PM Age: 86 years old Clinical indication: Right; Patient HX: PT states that she would hear a clicking when she walked in her RT hip and then her hip gave out on her this morning causing her to fall which resulted in pain in the RT hip and RT knee. PT has HX of breast and cervical cancer, along with a knee replacement in the RT knee. Pain level is at an 8 TECHNIQUE: Imaging protocol: Radiologic exam of the Right knee. Views: 3 views. COMPARISON: US soft tissue/extremity [id number] 03/28/2022 10:53 AM FINDINGS: Bones/joints: Metallic knee replacement is present in good position. Large intramedullary components are seen in both the distal femur and proximal tibia. There is no evidence of loosening. The beaver bones do not show acute abnormality Soft tissues: Normal. XR/XR knee RT 3V* [id number] IMPRESSION: 1. No acute findings. 2. Metallic knee replacement in good position
--- NOTE | 2022-06-17 13:05 | XRR_ITS ---
PROCEDURE INFORMATION: Exam: XR Right Hip Exam date and time: 06/17/2022 1:12 PM Age: 86 years old Clinical indication: Hip pain; Right hip; Patient HX: PT states that she would hear a clicking when she walked in her RT hip and then her hip gave out on her this morning causing her to fall which resulted in pain in the RT hip and RT knee. PT has HX of breast and cervical cancer, along with a knee replacement in the RT knee. Pain level is at an 8 TECHNIQUE: Imaging protocol: Radiologic exam of the Right hip. Views: 1 view hip with pelvis when performed. COMPARISON: CT chest abd pel w con* 05/15/2022 2:13 PM FINDINGS: Bones/joints: Unremarkable. No acute fracture. Soft tissues: Unremarkable. XR/XR hip RT 2-3V wo/w pel* [id number] IMPRESSION: No acute findings.
[2022-06-17 15:13] VITALS: BP 104/64; PULSE 60; RESP 17; O2SAT 97
--- NOTE | 2022-06-17 16:41 | W.ED.FALL ---
HPI - Fall General: Chief Complaint: Fall Stated Complaint: fell and hurt right hips Time Seen by Provider: 06/17/22 13:06 Source: patient Mode of arrival: ambulatory History of Present Illness: 86-year-old female presents emergency room with complaint of right hip pain knee pain she twisted her right knee and fell she did not strike her head there is no loss consciousness. She does take Eliquis daily. No other injuries. She currently is undergoing chemotherapy her last treatment was within the last week. She has a history of breast cancer. No chest pain no abdominal pain no shortness of breath. Her main complaint today is the left knee. She is concerned because she previously had arthroplasty there she also has right hip pain some that is chronic. MD complaint: fall Onset (ago): day(s) (1) Fall from: standing Fall witnessed: yes, by family Place fall occurred: home Loss of consciousness: None Prolonged down time: no Context: tripped/slipped Associated symptoms-after fall: Reports difficulty walking; Denies abdominal pain, chest pain, confusion, headache(s), hematuria, lightheadedness, neck pain, numbness, short of breath, vertigo, weakness or other Review of Systems Const: Reports: fatigue; Denies: fever(s), chills, body aches, change in appetite or malaise ENMT: Denies: throat pain, ear or mastoid pain, nasal discharge or nasal congestion Card: Denies: chest pain, palpitations, irregular heart rhythm or lightheadedness Resp: Denies: dyspnea, productive cough or non-productive cough GI: Denies: abdominal pain, nausea or vomiting : Denies: flank pain, difficulty voiding, dysuria, urinary frequency, urinary urgency or hematuria Musc: Reports: joint pain (Right knee right hip); Denies: neck pain or back pain Skin/Breast: Denies: rash or pruritus Neuro: Reports: difficulty walking; Denies: headache(s), vertigo or confusion [facility] ED PFSH: Medical History (Updated 06/17/22 @ 15:02 by Reymundo Diaz DO) Atrial fibrillation Borderline diabetes Charcot's arthropathy GERD (gastroesophageal reflux disease) History of abnormal cells from cervix Cervix removed at [place], [place] by Dr. Rosenthal History of skin cancer Left congregation and right forearm removed Hyperlipidemia Hypertension Hypothyroidism Peripheral neuropathy Port-A-Cath in place 2021 - Dr. Chapman Triple negative breast cancer Surgical History History of cataract removal with insertion of prosthetic lens History of cholecystectomy (1982) History of foot surgery Left foot, plates placed History of knee replacement right total knee arthroplasty in 1994 and in 2004 History of removal of cervix but not uterus History of shoulder surgery (2006) rotator cuff repair on the left Hx of mastectomy (03/06/22) Mediport placement, right axillary sentinel lymph node biopsy, right mastectomy S/P cardiac pacemaker procedure Status post surgical removal of malignant neoplasm of skin skin cancer excisions from the right arm and left congregation Family History Mother Dementia Father Lung disease Suicide Other Anemia CAD (coronary artery disease) Diabetes Heart disease Hyperlipidemia Hypertension Social History Smoking and tobacco status: never smoked Alcohol intake: never Physical Exam Const: COMMON NORMALS: no acute distress GENERAL APPEARANCE: cooperative and comfortable ORIENTATION/CONSCIOUSNESS: Yes awake, Yes oriented to person, Yes oriented to place and Yes oriented to time HENMT: COMMON NORMALS: normocephalic, atraumatic and hearing grossly normal bilaterally HEAD & SCALP: normocephalic and atraumatic Resp: COMMON NORMALS: normal respiratory effort, No retractions, No use of accessory muscles and clear to auscultation bilaterally AUSCULTATION: clear to auscultation bilaterally Cardio: COMMON NORMALS: regular rate, regular rhythm and No murmurs present (Cardio) RATE: regular rate RHYTHM: regular rhythm GI: COMMON NORMALS: Soft to palpation and No hepatosplenomegaly present AUSCULTATION: Yes normoactive bowel sounds PALPATION: Yes Soft to palpation, No Tenderness to palpation present (GI), No Guarding due to palpation present (GI) and Yes No hepatosplenomegaly present Extremity: COMMON NORMALS: normal to inspection, capillary refill normal, no clubbing, cyanosis or edema, no calf tenderness and no pedal edema Neuro: SENSORIUM/ORIENTATION: Yes oriented to person, Yes oriented to place and Yes oriented to time Skin: COMMON NORMALS: no rashes or lesions noted GENERAL SKIN EXAM: no rashes or lesions noted Course Vital Signs: Vital signs: Vital Signs Temperature 97.7 F 06/17/22 12:45 Pulse Rate 60 06/17/22 15:13 Respiratory Rate 17 06/17/22 15:13 Blood Pressure 104/64 06/17/22 15:13 Pulse Oximetry 97 06/17/22 15:13 MDM - Fall Medical Decision Making No fractures any x-rays. Remainder of exam unremarkable discharge home pain medication as needed follow-up with oncology return for further problems Medical Records I reviewed the patient's medical records. Lab Data I reviewed the patient's lab results. Radiology Impressions Hip/Pelvis X-Ray 06/17/22 13:05 IMPRESSION: No acute findings. Knee X-Ray 06/17/22 13:05 IMPRESSION: 1. No acute findings. 2. Metallic knee replacement in good position Discharge Plan Discharge Patient Disposition: Home Clinical Impression: Fall, Malignant neoplasm of overlapping sites of right female breast, Knee pain, Hip pain Condition: Stable Prescriptions: New hydrocodone-acetaminophen 5-325 mg tablet 1 tab PO Q6H PRN (Reason: pain) Qty: 10 0RF No Action metoprolol tartrate 25 mg tablet 25 mg PO DAILY Qty: 90 2RF famotidine 20 mg tablet 20 mg PO DAILY Qty: 30 2RF furosemide 20 mg tablet 20 mg PO DAILY Qty: 90 2RF cholecalciferol (vitamin D3) 25 mcg (1,000 unit) capsule 25 mcg PO DAILY Eliquis 5 mg tablet 5 mg PO BID Hold Instructions: Resume on 03/10/22. duloxetine 60 mg capsule,delayed release(DR/EC) 60 mg PO DAILY gabapentin 800 mg tablet 1,600 mg PO BID levothyroxine 125 mcg tablet 125 mcg PO DAILY cetirizine [Zyrtec] 10 mg tablet 10 mg PO DAILY PRN (Reason: Allergy Symptoms) (DME) BreatheRite Spacer-Mask,Adult Spacer See Rx Instructions .Route Rx Instructions: As directed budesonide-formoterol [Symbicort] 80-4.5 mcg/actuation HFA aerosol inhaler 1 puff inhalation BID atorvastatin 20 mg tablet 20 mg PO DAILY thiamine HCl (vitamin B1) 250 mg tablet 250 mg PO DAILY losartan 50 mg tablet 25 mg PO DAILY famciclovir 500 mg tablet 500 mg PO Q8H Qty: 21 1RF cyanocobalamin (vitamin B-12) [Vitamin B-12] 1,000 mcg Tablet 1,000 mcg PO DAILY albuterol sulfate 90 mcg/actuation Hfa Aerosol Inhaler 1 inh INHALATION QID PRN (Reason: Shortness Of Breath) nortriptyline 50 mg Capsule 50 mg PO BEDTIME Vitamin C 100 mg Tablet 100 mg PO DAILY vitamin A-vitamin C-vit E-min Tablet 1 tab PO DAILY prochlorperazine maleate [Compazine] 10 mg tablet 10 mg PO Q4H PRN (Reason: Mild Nausea) Qty: 30 3RF lorazepam 1 mg tablet 0.5 - 1 mg PO Q6H PRN (Reason: Severe Nausea) Qty: 30 3RF Discharge Orders: Discharge ED (Routine); Ordered 06/17/22 Ordered By: Reymundo Diaz Referrals: Mone Chowdhury MD [Primary Care Provider] - Discharge Diet: Usual diet Discharge Activity: Resume usual activity Patient Instructions: Opioid Safety, Pain Management Coding Level of Care Code ED English Language Arts Teacher for Helen Pelaez
== END 2022-06-17 15:15 | disposition home or self-care (01) ==
PROVIDERS: Emergency Provider Family Medicine; PCP Internal Medicine
DX: M25.551 Pain in right hip (principal); M25.561 Pain in right knee; C50.811 Malignant neoplasm of overlapping sites of right female breast; Z79.01 Long term (current) use of anticoagulants; Z96.651 Presence of right artificial knee joint; E78.5 Hyperlipidemia, unspecified; Z95.0 Presence of cardiac pacemaker
CPT/HCPCS: 73502; 73562; 99283

== ENCOUNTER 2022-06-23 15:07 | Inpatient (IN) | payer MEDICARE, SELFPAY ==
[2022-06-23 15:15] VITALS: BP 115/56; PULSE 85; RESP 17; TEMP 37.2; O2SAT 93; BMI 31.9
--- NOTE | 2022-06-23 15:17 | XRR_ITS ---
PROCEDURE INFORMATION: Exam: XR Chest Exam date and time: 06/23/2022 3:53 PM Age: 86 years old Clinical indication: Other: Confusion; Prior surgery; Surgery type: Mastectomy, pacemaker, gb; Patient HX: HX of breast cancer TECHNIQUE: Imaging protocol: Radiologic exam of the chest. Views: 1 view. COMPARISON: CT chest abd pel w con* 05/15/2022 2:13 PM FINDINGS: Tubes, catheters and devices: Left subclavian [id number] with tip near the origin of the superior vena cava. Intact dual lead left subclavian pacemaker. Lungs: Interstitial scarring in both lungs. Calcified granuloma in the right base. No consolidation. Pleural spaces: Unremarkable. No pleural effusion. No pneumothorax. Heart/Mediastinum: Unremarkable. No cardiomegaly. Bones/joints: Severe degenerative changes of the left shoulder joint with flattening and remodeling of the humeral head. Soft tissues: Clips in the right axilla. Right mastectomy. XR/XR chest 1V portable [id number] IMPRESSION: No acute findings.
[2022-06-23 15:32] LABS: Hematocrit 24.1 % (37.0-47.0); Hemoglobin 8.1 g/dL (11.5-15.3); Mean Corpuscular HGB Conc 33.6 g/dL (30.0-36.0); Mean Corpuscular Hemoglobin 30.3 pg (28.0-34.0); Mean Corpuscular Volume 90.3 fl (81-99); Mean Platelet Volume 9.7 fL (7.4-10.4); Nucleated Red Blood Cells % 0 %; Platelet Count 165 10^3/cmm (130-400); Red Blood Count 2.67 10^6/uL (4.1-5.3); Red Cell Distribution Width 13.5 % (12.1-15.1)
[2022-06-23 15:51] LABS: Alanine Aminotransferase 11 U/L (0-33); Albumin Level 3.2 g/dL (3.5-5.2); Alkaline Phosphatase 90 U/L (35-105); Anion Gap 18.2 (5-19); Aspartate Amino Transferase 21 U/L (0-32); Blood Urea Nitrogen 11 mg/dL (8-23); Calcium 9.1 mg/dL (8.5-10.5); Carbon Dioxide 23 mmol/L (22-29); Chloride 96 mmol/L (98-107); Glucose 195 mg/dL (65-115); Magnesium 1.6 mg/dL (1.7-2.3); Osmolality Calculated 281 mOsm/kg (285-295); Potassium 4.2 mmol/L (3.5-5.1); Sodium 133 mmol/L (136-145); Total Bilirubin 1.3 mg/dL (0.15-1.2); Total Protein 6.2 g/dL (6.6-8.7)
[2022-06-23 15:55] LABS: Slide Review Slide Review Perform
[2022-06-23 15:56] LABS: White Blood Count 0.1 10^3/uL (4.0-10.0)
[2022-06-23 15:57] LABS: Neutrophils # 0.02 10^3/uL (1.8-7.7)
--- NOTE | 2022-06-23 16:00 | ED_ITS ---
HPI - General Adult General: Chief complaint: General Medical Stated complaint: FALL/ INCREASING WEAKNESS/ CONFUSION/ LETHARGY Time Seen by Provider: 06/23/22 15:10 History of Present Illness: 86-year-old female brought in with couple falls over the last week, some increasing weakness confusion just not feeling well with low energy. Family reports that she has had a subjective fever but no reported fever, no cough, shortness of breath. Patient has had breast cancer and received chemotherapy. Her last chemotherapy was proxy 1 week ago and ever since then she has felt bad. Associated symptoms: Reports confusion and malaise; Deny chest pain, dyspnea, nausea, rash, palpitations or vomiting Review of Systems Const: Reports: fever(s) (Subjective), fatigue and malaise Eyes: Denies: change in vision or blurry vision Card: Denies: chest pain or palpitations Resp: Denies: dyspnea, productive cough or wheezing GI: Denies: abdominal pain, nausea or vomiting : Denies: flank pain or difficulty voiding Musc: Denies: neck pain or back pain Skin/Breast: Denies: rash Neuro: Reports: frequent falls and confusion Psych: Reports: sleeping more; Denies: anxiety or depression Endo: Denies: polyuria or polydipsia PFSH ED PFSH: Medical History Atrial fibrillation Borderline diabetes Charcot's arthropathy GERD (gastroesophageal reflux disease) History of abnormal cells from cervix Cervix removed at [place], [place] by Dr. Rosenthal History of skin cancer Left sabianism and right forearm removed Hyperlipidemia Hypertension Hypothyroidism Peripheral neuropathy Port-A-Cath in place 2021 - Dr. Chapman Triple negative breast cancer Surgical History History of cataract removal with insertion of prosthetic lens History of cholecystectomy (1982) History of foot surgery Left foot, plates placed History of knee replacement right total knee arthroplasty in 1994 and in 2004 History of removal of cervix but not uterus History of shoulder surgery (2006) rotator cuff repair on the left Hx of mastectomy (03/06/22) Mediport placement, right axillary sentinel lymph node biopsy, right mastectomy S/P cardiac pacemaker procedure Status post surgical removal of malignant neoplasm of skin skin cancer excisions from the right arm and left sabianism Family History Mother Dementia Father Lung disease Suicide Other Anemia CAD (coronary artery disease) Diabetes Heart disease Hyperlipidemia Hypertension Social History Smoking and tobacco status: never smoked Alcohol intake: never Physical Exam Const: COMMON NORMALS: alert GENERAL APPEARANCE: cooperative and other (Not feeling well) NUTRITIONAL APPEARANCE: overweight ORIENTATION/CONSCIOUSNESS: Yes oriented to person, Yes oriented to place and Yes oriented to time HENMT: COMMON NORMALS: normocephalic HEAD & SCALP: normal to inspection and normocephalic Eye: COMMON NORMALS: Equal, round and reactive pupils present and EOMs intact bilaterally PUPIL: Yes Equal, round and reactive pupils present Resp: COMMON NORMALS: normal respiratory effort, No use of accessory muscles and clear to auscultation bilaterally AUSCULTATION: clear to auscultation bilaterally Cardio: COMMON NORMALS: regular rate and regular rhythm RATE: regular rate RHYTHM: regular rhythm GI: COMMON NORMALS: Normal to inspection, nondistended, normoactive bowel sounds present Extremity: COMMON NORMALS: full ROM and capillary refill normal Neuro: SENSORIUM/ORIENTATION: Yes alert, Yes oriented to person, Yes oriented to place and Yes oriented to time Psych: APPEARANCE: Yes grossly normal ATTITUDE: Yes calm MOOD & AFFECT: Yes depressed mood Course Vital Signs: Vital signs: Vital Signs Temperature 98.9 F 06/23/22 15:15 Pulse Rate 71 06/23/22 19:45 Respiratory Rate 20 H 06/23/22 19:45 Blood Pressure 98/54 06/23/22 18:27 Pulse Oximetry 95 06/23/22 19:45 Oxygen Delivery Me thod 06/23/22 19:45 MDM - General Adult Medical Decision Making Patient with severe neutropenia likely from her chemotherapy discussed with Dr. Hastings her oncology. Recommended we admit her for IV antibiotics and IV fluids and further monitoring. We will start her on cefepime 2 g every 12 hours, she was admitted to hospitalist for further management in stable condition Lab Data : 06/23/22 15:00 06/23/22 15:00 Radiology Impressions Chest X-Ray 06/23/22 15:17 IMPRESSION: No acute findings. Laboratory Results WBC 0.1 10^3/uL (4.0-10.0) L* 09/19/22 15:00 RBC 2.67 10^6/uL (4.1-5.3) L 06/23/22 15:00 Hgb 8.1 g/dL (11.5-15.3) L 06/23/22 15:00 Hct 24.1 % (37.0-47.0) L 06/23/22 15:00 MCV 90.3 fl (81-99) 06/23/22 15:00 MCH 30.3 pg (28.0-34.0) 06/23/22 15:00 MCHC 33.6 g/dL (30.0-36.0) 06/23/22 15:00 RDW 13.5 % (12.1-15.1) 06/23/22 15:00 Plt Count 165 10^3/cmm (130-400) 06/23/22 15:00 MPV 9.7 fL (7.4-10.4) 06/23/22 15:00 Neut % (Auto) 40.0 % 06/23/22 15:00 Lymph % (Auto) 60.0 % 06/23/22 15:00 [place] % (Auto) 0.0 % 06/23/22 15:00 Eos % (Auto) 0.0 % 06/23/22 15:00 Baso % (Auto) 0.0 % 06/23/22 15:00 Neut # (Auto) 0.02 10^3/uL (1.8-7.7) L* 06/23/22 15:00 Lymph # (Auto) 0.0 10^3/uL (0.8-4.8) L 06/23/22 15:00 [place] # (Auto) 0.0 10^3/uL (0.2-0.9) L 06/23/22 15:00 Eos # (Auto) 0.0 10^3/uL (0.0-0.8) 06/23/22 15:00 Baso # (Auto) 0.0 10^3/uL (0.0-0.1) 06/23/22 15:00 Nucleated RBC % (auto) 0 % 06/23/22 15:00 Nucleated RBCs # 0.0 /100WBC 06/23/22 15:00 Sodium 133 mmol/L (136-145) L 06/23/22 15:00 Potassium 4.2 mmol/L (3.5-5.1) 06/23/22 15:00 Chloride 96 mmol/L (98-107) L 06/23/22 15:00 Carbon Dioxide 23 mmol/L (22-29) 06/23/22 15:00 Anion Gap 18.2 (5-19) 06/23/22 15:00 BUN 11 mg/dL (8-23) 06/23/22 15:00 Creatinine 0.7 mg/dL (0.5-0.9) 06/23/22 15:00 GFR Calculation Not Reportable 06/23/22 15:00 Glucose 195 mg/dL (65-115) H 06/23/22 15:00 Calculated Osmolality 281 mOsm/kg (285-295) L 06/23/22 15:00 Calcium 9.1 mg/dL (8.5-10.5) 06/23/22 15:00 Magnesium 1.6 mg/dL (1.7-2.3) L 06/23/22 15:00 Total Bilirubin 1.3 mg/dL (0.15-1.2) H 06/23/22 15:00 AST 21 U/L (0-32) 06/23/22 15:00 ALT 11 U/L (0-33) 06/23/22 15:00 Alkaline Phosphatase 90 U/L (35-105) 06/23/22 15:00 Total Protein 6.2 g/dL (6.6-8.7) L 06/23/22 15:00 Albumin 3.2 g/dL (3.5-5.2) L 06/23/22 15:00 Globulin 3.0 g/dL (1.3-4.6) 06/23/22 15:00 Procalcitonin 0.72 ng/mL (0-0.5) H 06/23/22 15:00 TSH 2.84 uIU/mL (0.27-4.20) 06/23/22 15:00 Discharge Plan Discharge Patient Disposition: Admitted As Inpatient Admit Provider: Melinda Biswas Clinical Impression: Neutropenia due to and not concurrent with chemotherapy Condition: Stable Coding Level of Care Code ED Tester Armature Or Fields for Chg Fwd Exam Comprehensive
[2022-06-23] MEDS: lactated ringers 1,000 ML 100 ML IV (16:36)
[2022-06-23] MEDS: cefepime 2,000 MG in sodium chloride 0.9% (plus) 50 ML 100 MG IV (16:36)
[2022-06-23 16:39] VITALS: BP 94/42; PULSE 72; RESP 23; O2SAT 96
--- NOTE | 2022-06-23 17:23 | P.HP_ITS ---
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 Hastings presented to the hospital with chief complaint of worsening of fatigue and recurrent falls. Patient is stating that her symptoms started on Thursday when she fell 4 times, she did not experience any syncopal events however she is endorsing extreme fatigue and lethargy. She has not experienced any chest pain, diarrhea, vomiting, fever. She is endorsing hot flashes with her fatigue. She mostly stays dry. She thinks she is losing weight. She decided to come to the hospital today because of worsening of her symptoms and recurrent falls. Her family has not noticed any strokelike features, no history of metastatic disease in the past or spine compression fracture. In the ER she was diagnosed with neutropenia and Dr. Hastings has recommended prophylactic antibiotic coverage she will go to the ICU negative isolation room We will start her on vancomycin and cefepime for now She did receive Neulasta with her chemo last week When I was interviewing the patient she was taking a little longer to answer question but as per the family her thinking has been cloudy Patient is endorsing urinary frequency but not endorsing urinary dysuria or losing control over her bladder She is saying that she has bad neuropathy and has some weakness of her lower extremities Review of Systems Const: Reports: body aches, change in appetite and change in weight; Denies: fever(s) Eyes: Denies: change in vision ENMT: Denies: throat pain Card: Denies: chest pain Resp: Denies: dyspnea GI: Denies: abdominal pain : Reports: urinary frequency Musc: Denies: neck pain Skin/Breast: Denies: rash Neuro: Denies: headache(s) Psych: Reports: anxiety Endo: Denies: polyuria Nicholas/Lymph: Denies: easy bruising All/Imm: Denies: urticaria Medications/Allergies Home Medications Medication Instructions Recorded Confirmed Last Taken Type apixaban 5 mg tablet (Eliquis) 5 mg PO BID 07/16/20 06/23/22 06/23/22 History duloxetine 60 mg capsule,delayed 60 mg PO DAILY 07/16/20 06/23/22 06/23/22 History release gabapentin 800 mg tablet 800 mg PO BID 07/16/20 06/23/22 06/23/22 History levothyroxine 125 mcg tablet 125 mcg PO DAILY 07/16/20 06/23/22 06/23/22 History famotidine 20 mg tablet 20 mg PO DAILY #30 tabs 12/25/20 06/23/22 06/23/22 Rx furosemide 20 mg tablet 20 mg PO DAILY #90 tabs 12/25/20 06/23/22 06/23/22 Rx metoprolol tartrate 25 mg tablet 25 mg PO DAILY #90 tabs 12/25/20 06/23/22 06/23/22 Rx albuterol sulfate 90 mcg/actuation 1 inh inhalation QID PRN Shortness 04/19/21 06/23/22 Unknown History aerosol inhaler Of Breath cyanocobalamin (vitamin B-12) 1,000 mcg PO DAILY 04/19/21 06/23/22 06/23/22 History 1,000 mcg tablet (Vitamin B-12) nortriptyline 50 mg capsule 50 mg PO BEDTIME 04/19/21 06/23/22 06/22/22 History cholecalciferol (vitamin D3) 25 25 mcg PO DAILY 12/26/21 06/23/22 06/23/22 History mcg (1,000 unit) capsule atorvastatin 20 mg tablet 20 mg PO DAILY 02/21/22 06/23/22 06/23/22 History budesonide-formoterol HFA 80 1 puff inhalation BID 02/21/22 06/23/22 06/23/22 History mcg-4.5 mcg/actuation aerosol inhaler (Symbicort) cetirizine 10 mg tablet (Zyrtec) 10 mg PO DAILY PRN Allergy Symptoms 02/21/22 06/23/22 06/23/22 History inhalat.spacing dev,large mask 02/21/22 06/23/22 Unknown History (BreatheRite Spacer-Mask,Adult) thiamine HCl (vitamin B1) 250 mg 250 mg PO DAILY 02/24/22 06/23/22 06/23/22 History tablet ascorbic acid (vitamin C) 100 mg 100 mg PO DAILY 03/07/22 06/23/22 06/23/22 History tablet (Vitamin C) losartan 50 mg tablet 25 mg PO DAILY 05/26/22 06/23/22 06/23/22 History vitamin A-vitamin C-vit E-min 1 tab PO DAILY 05/26/22 06/23/22 06/23/22 History tablet lorazepam 1 mg tablet 0.5 - 1 mg PO Q6H PRN Severe 05/28/22 06/23/22 Unknown Rx Nausea #30 tabs prochlorperazine maleate 10 mg 10 mg PO Q4H PRN Mild Nausea #30 05/28/22 06/23/22 Unknown Rx tablet (Compazine) tabs famciclovir 500 mg tablet 500 mg PO Q8H for mouth #21 tabs 06/16/22 06/23/22 Unknown Rx hydrocodone 5 mg-acetaminophen 325 1 tab PO Q6H PRN pain #10 tabs 06/17/22 06/23/22 Unknown Rx mg tablet aspirin 81 mg tablet,delayed 81 mg PO DAILY 06/23/22 06/23/22 06/23/22 History release Allergies Allergy/AdvReac Type Severity Reaction Status Date / Time fentanyl Allergy ADR-Drowsy Verified 06/23/22 15:56 oxycodone [From OxyContin] Allergy ADR-Drowsy Verified 06/23/22 15:56 PFSH Acute PFSH: Medical History Atrial fibrillation Borderline diabetes Charcot's arthropathy GERD (gastroesophageal reflux disease) History of abnormal cells from cervix Cervix removed at [place], [place] by Dr. Rosenthal History of skin cancer Left scientology and right forearm removed Hyperlipidemia Hypertension Hypothyroidism Peripheral neuropathy Port-A-Cath in place 2021 - Dr. Chapman Triple negative breast cancer Surgical History History of cataract removal with insertion of prosthetic lens History of cholecystectomy (1982) History of foot surgery Left foot, plates placed History of knee replacement right total knee arthroplasty in 1994 and in 2004 History of removal of cervix but not uterus History of shoulder surgery (2006) rotator cuff repair on the left Hx of mastectomy (03/06/22) Mediport placement, right axillary sentinel lymph node biopsy, right mastectomy S/P cardiac pacemaker procedure Status post surgical removal of malignant neoplasm of skin skin cancer excisions from the right arm and left scientology Family History Mother Dementia Father Lung disease Suicide Other Anemia CAD (coronary artery disease) Diabetes Heart disease Hyperlipidemia Hypertension Social History Smoking and tobacco status: never smoked Alcohol intake: never Vitals/I&O/Wt Last Vital Signs Temp 98.9 F 06/23/22 15:15 Pulse 72 06/23/22 16:39 Resp 23 H 06/23/22 16:39 BP 94/42 06/23/22 16:39 Pulse Ox 96 06/23/22 16:39 O2 Del Method 06/23/22 16:39 Weight last 48 hrs Weight 76.657 kg Physical Exam Narrative: Patient is laying supine Very pleasant cooperative Nonfocal neuro exam She is able to keep her legs in the air for about 5 seconds Right leg seems slightly weaker as compared to left Sensations intact right medial thigh area No active signs of cauda equina Gait was not tested She is awake and alert Nonfocal neuro exam No signs of facial droop Looks dehydrated S1, S2 variable Abdomen soft nontender Saturating well on room air Appropriate mood and affect Data : 06/23/22 15:00 06/23/22 15:00 Micro: Microbiology 06/23/22 15:46 Blood Culture - Preliminary Blood SPECIMEN COLLECTED 06/23/22 15:49 Blood Culture - Preliminary Blood SPECIMEN COLLECTED A&P Assessment and plan (1) Fall: Status: Acute (2) Knee pain: Status: Acute (3) Port-A-Cath in place: Status: Acute (4) Malignant neoplasm of overlapping sites of right female breast: Status: Acute (5) Pacemaker: Status: Acute (6) Hypothyroidism: Status: Acute Qualifiers: Hypothyroidism type: unspecified Qualified Code(s): E03.9 - Hypothyroidism, unspecified (7) Hypertension: Status: Acute (8) Fatigue: Status: Acute Plan Generalized fatigue and weakness Recurrent falls No signs of syncope or strokelike features She has electrolyte imbalance, clinically dehydrated Symptoms started on Thursday with recurrent falls No signs of cauda equina I will obtain CT scan of thoracolumbar region She does take Eliquis, she has had 5 falls in the last 2 weeks No syncope or chest pain Will recommend pacemaker interrogation Echo from December showed preserved ejection fraction grade 2 diastolic function mild aortic valve stenosis severe pulmonary hypertension, I will not repeat echo Dehydration Start IV fluids Neutropenia Most likely related to chemotherapy She has received Neulasta last week She will get empirical coverage with cefepime for now No signs of meningoencephalitis Threshold will stay low to add vancomycin Negative isolation room in ICU Hypomagnesemia: Repleted Hypothyroid: Check TSH Full code Goals of care discussed with the patient and her granddaughter is also at the bedside Cardiac diet DVT prophylaxis Eliamaury Attestations Medical Necessity Statement*: Will need more than 2 midnights for management evaluation of neutropenia high risk for development of infection considering immunocompromise state Time Spent in Patient Care: 45 Coding Level of Care Code Acute [employer] Learning Support Teacher for Chg Fwd Diagnoses Fall W19.XXXA Knee pain M25.569 Port-A-Cath in place Z95.828 Malignant neoplasm of overlapping sites of right female breast C50.811 Pacemaker Z95.0 Hypothyroidism E03.9 Hypothyroidism type: unspecified Hypertension I10 Fatigue R53.83
[2022-06-23] MEDS: sodium chloride 0.9% 1,000 ML 100 ML IV (17:50)
[2022-06-23 18:18] LABS: Procalcitonin 0.72 ng/mL (0-0.5)
[2022-06-23 18:27] VITALS: BP 98/54; PULSE 70; RESP 21; O2SAT 96
[2022-06-23 18:59] LABS: Thyroid Stimulating Hormone 2.84 uIU/mL (0.27-4.20)
[2022-06-23] MEDS: apixaban 5 mg Tablet PO (18:59)
[2022-06-23] MEDS: insulin lispro 100 unit/1 mL SUBCUT (18:59)
[2022-06-23 19:03] LABS: Glucose Point of Care 205 mg/dL (70-110)
[2022-06-23 19:45] VITALS: PULSE 71; RESP 20; O2SAT 95
[2022-06-23] MEDS: nortriptyline 25 mg Capsule 50 MG PO (20:46)
[2022-06-24] VITALS (196 sets, daily range): BP systolic 106–162; BP diastolic 39–107; PULSE 60–116; RESP 13–31; TEMP 36–36.6; O2SAT 61–100
--- NOTE | 2022-06-24 | CT_ITS ---
WS: [id number] CT LUMBAR SPINE TECHNIQUE: Noncontrast CT of the lumbar spine with coronal and sagittal reformatted images. CLINICAL INFORMATION: without contrast, falls, on eliquis COMPARISON: None. DLP: 1818.[address] scans at [facility] use at least one of these dose optimization techniques: automated e xposure control; mA and/or kV adjustment per patient size (includes targeted exams where dose is matc hed to clinical indication); or iterative reconstruction. FINDINGS: Mild lumbar curve. No acute compression. Disc space narrowing worse in the lower thoracic spine, L4-L 5 and L5-S1. Grade 1 anterolisthesis L5 on S1 measuring 8 mm. Slight anterolisthesis L4 on L5 measuri ng 3 mm. Disc bulging L4-L5 and L5-S1 vacuum disc phenomenon. Adrenal glands are normal. Sigmoid diverticulosis. Normal caliber distal abdominal aorta. 3 mm calcul us in the RIGHT proximal ureter with mild RIGHT hydronephrosis unchanged since May 15, 2022. [place] nephrosis is new compared to previous. Degenerative arthritis both sacroiliac joints. L1-L2: Normal. L2-L3: Normal. L3-L4: Mild annular bulging. Moderate central canal stenosis. Moderate facet arthropathy with ligame ntum flavum hypertrophy. Foramen are patent. L4-L5: Slight anterolisthesis L4 on L5 with severe central canal stenosis due to disc bulging with ad vanced facet arthropathy ligament flavum hypertrophy. Impingement traversing L5 nerve roots bilateral ly. Mild to moderate RIGHT foraminal narrowing. L5-S1: Grade 1 anterolisthesis L5 on S1 measuring 8 mm. Slight impingement traversing S1 nerve roots bilaterally. Advanced facet arthropathy. Mild central canal stenosis with mild to moderate bilateral bony foraminal narrowing. Visualized pelvic bony structures: Normal. Paravertebral soft tissues: Normal. CT/CT lumbar spine wo con* [id number] IMPRESSION: 1. No acute compression fractures. No evidence of bony metastatic lesions. 2. Severe central canal stenosis L4-L5. Moderate central canal stenosis L3-L4. 3. Advanced facet arthropathy L4-L5 and L5-S1 with grade 1 anterolisthesis L5 on S1 described above. 4. Partially visualized obstructing 3 mm RIGHT proximal ureteral calculus with mild RIGHT hydronephrosis. Correlation with renal function. Suggestion of surr ounding perinephric induration Notified Melinda Biswas MD at 06/24/2022 4:25 PM.
[2022-06-24 03:51] LABS: Glucose Urine UA Norm (Normal); Ketones Urine Negative (Negative); Protein Urine Neg (Negative); Urine Appearance SL Hazy (CLEAR); Urine Color Dark Yellow (Yellow); pH Urine 6 (5-7)
[2022-06-24 03:52] LABS: Add Urine Microscopic? YES; Bacteria Urine 3+ /hpf; Bilirubin Urine Neg (Negative); Blood Urine 3+ (Negative); Leukocyte Esterase Urine Negative (Negative); Nitrate Urine Positive (Negative); RBC Urine TOO NUMEROUS TO CNT /hpf (0-2); Squamous Epithelial Cell Urine 0-4 /hpf (0-5); Urobilinogen Urine Norm (Negative)
[2022-06-24 03:53] LABS: Add Urine Culture? Yes
[2022-06-24 04:10] LABS: Hematocrit 21.5 % (37.0-47.0); Hemoglobin 6.8 g/dL (11.5-15.3); Lymphocytes # 0.2 10^3/uL (0.8-4.8); Lymphocytes % 66.7 %; Mean Corpuscular HGB Conc 31.6 g/dL (30.0-36.0); Mean Corpuscular Hemoglobin 30.2 pg (28.0-34.0); Mean Corpuscular Volume 95.6 fl (81-99); Mean Platelet Volume 10.1 fL (7.4-10.4); Monocytes # 0.1 10^3/uL (0.2-0.9); Monocytes % 15.2 %; Nucleated Red Blood Cells % 0 %; Platelet Count 134 10^3/cmm (130-400); Positive C 1; Positive M 1; Red Blood Count 2.25 10^6/uL (4.1-5.3); Red Cell Distribution Width 13.8 % (12.1-15.1)
[2022-06-24 04:30] LABS: Anion Gap 13.4 (5-19); Blood Urea Nitrogen 13 mg/dL (8-23); Calcium 8.5 mg/dL (8.5-10.5); Carbon Dioxide 25 mmol/L (22-29); Chloride 96 mmol/L (98-107); Glucose 109 mg/dL (65-115); Magnesium 1.7 mg/dL (1.7-2.3); Osmolality Calculated 271 mOsm/kg (285-295); Potassium 4.4 mmol/L (3.5-5.1); Sodium 130 mmol/L (136-145)
[2022-06-24 04:35] LABS: Neutrophils # 0.03 10^3/uL (1.8-7.7); Slide Review Slide Review Perform; White Blood Count 0.3 10^3/uL (4.0-10.0)
[2022-06-24 04:52] LABS: Phosphorus 2.8 mg/dL (2.5-4.5)
[2022-06-24 07:40] LABS: Glucose Point of Care 82 mg/dL (70-110)
[2022-06-24] MEDS: atorvastatin 40 mg Tablet 20 MG PO (08:35)
[2022-06-24] MEDS: magnesium oxide 400 mg tablet PO (08:35)
[2022-06-24] MEDS: duloxetine 60 mg Capsule PO (08:35)
[2022-06-24] MEDS: famotidine 20 mg Tablet PO (08:35)
[2022-06-24] MEDS: levothyroxine 125 mcg Tablet PO (08:35)
[2022-06-24] MEDS: gabapentin 400 mg Capsule 800 MG PO ×2 (08:35→17:35)
[2022-06-24] MEDS: losartan 50 mg Tablet 25 MG PO (08:36)
[2022-06-24] MEDS: cyanocobalamin 1,000 mcg Tablet 1000 MCG PO (08:36)
[2022-06-24] MEDS: metoprolol tartrate 25 mg Tablet PO (08:36)
[2022-06-24] MEDS: thiamine 100 mg Tablet 250 MG PO (08:37)
[2022-06-24] MEDS: sennosides-docusate Tablet 1 TAB PO (08:37)
[2022-06-24] MEDS: cefepime 2,000 MG in sodium chloride 0.9% (plus) 50 ML 100 MG IV ×2 (08:38→20:13)
[2022-06-24] MEDS: apixaban 5 mg Tablet PO ×2 (08:38→17:35)
--- NOTE | 2022-06-24 08:40 | P.PN_ITS ---
Vitals/I&O/Wt Last Vital Signs Temp 98.9 F 06/23/22 15:15 Pulse 63 06/24/22 07:25 Resp 15 06/24/22 07:25 BP 106/46 06/24/22 08:36 Pulse Ox 89 L 06/24/22 07:25 O2 Del Method 06/23/22 19:45 06/23/22 06/24/22 06/24/22 22:59 06:59 14:59 Intake Total 273.333 / 273.333 100 / 844.399 2743 / 1000 Output Total 300 / 300 Balance 273.333 / 273.333 -200 / 73.333 1000 / 1000 Weight last 48 hrs Weight 76.657 kg Physical Exam Narrative: General: Alert oriented x3, patient seen sitting up in bed analia earing comfortable at this time HEENT: Normocephalic, atraumatic, EOMI, breathing comfortably and normally no acute distress Cardio: Regular rate rhythm, normal S1-S2, Respiratory: Good bilateral air entry, mild rhonchi at bases GI: Abdomen soft, nontender, nondistended, bowel sounds + Extremities: 1+ edema bilateral lower extremities Neuro: Nonfocal but right leg slightly weaker compared to left, seems chronic Data : 06/24/22 13:06 06/24/22 03:19 Micro: Microbiology 06/23/22 15:46 Blood Culture - Preliminary Blood SPECIMEN COLLECTED 06/23/22 15:49 Blood Culture - Preliminary Blood SPECIMEN COLLECTED A&P Assessment and plan (1) Fall: Status: Acute (2) Knee pain: Status: Acute (3) Port-A-Cath in place: Status: Acute (4) Malignant neoplasm of overlapping sites of right female breast: Status: Acute (5) Pacemaker: Status: Acute (6) Hypothyroidism: Status: Acute Qualifiers: Hypothyroidism type: unspecified Qualified Code(s): E03.9 - Hypothyroidism, unspecified (7) Hypertension: Status: Acute (8) Fatigue: Status: Acute Plan #Grade 3 invasive cancer of right breast stage II, triple negative #Most recent chemotherapy June 16, 2022 with doxorubicin and cyclophosphamide #Severe neutropenia, anemia #Hypomagnesemia #Dehydration #UTI #Atrial fibrillation #GERD #Hyperlipidemia #Hypertension #Hypothyroidism #Peripheral neuropathy #Borderline diabetes #Pacemaker ? ER doctor discussed with Dr. Hastings at admission who recommended cefepime 2 g every 12 hours ? Continue to monitor in the hospital until cell counts improved ? Hemoglobin 6.8 this AM. Patient is status post 1 unit packed RBC. Recheck hemoglobin 2 hours status post transfusion ? Continue to monitor labs daily ? Patient is on Eliquis and has had 5 falls in the last 2 weeks. We will check thoracolumbar CT. - Will recommend pacemaker interrogation - Echo from December showed preserved ejection fraction grade 2 diastolic function mild aortic valve stenosis severe pulmonary hypertension, I will not repeat echo -Continue fluids ? Neutropenic precautions ? Patient received Neulasta last week. No need of Neupogen at this time ? I believe her counts are due to bone marrow suppression from her recent chemotherapy. I will continue Eliquis for now. There is no active source of bleeding. ? No signs of meningitis ? Negative isolation room in ICU -I will add vancomycin for empiric coverage Full code Cardiac diet DVT prophylaxis Eliquis Attestations Medical Necessity Statement*: Continue to monitor in ICU. Patient severely neutropenic. Continue empiric antibiotics. Coding Level of Care Code Acute Medicare Sales Executive for Chg Fwd Diagnoses Fall W19.XXXA Knee pain M25.569 Port-A-Cath in place Z95.828 Malignant neoplasm of overlapping sites of right female breast C50.811 Pacemaker Z95.0 Hypothyroidism E03.9 Hypothyroidism type: unspecified Hypertension I10 Fatigue R53.83
[2022-06-24 11:57] LABS: Glucose Point of Care 100 mg/dL (70-110)
[2022-06-24 13:17] LABS: Hematocrit 26.6 % (37.0-47.0); Hemoglobin 8.6 g/dL (11.5-15.3)
--- NOTE | 2022-06-24 14:33 | CT_ITS ---
WS: [id number] CT LUMBAR SPINE TECHNIQUE: Noncontrast CT of the lumbar spine with coronal and sagittal reformatted images. CLINICAL INFORMATION: without contrast, falls, on eliquis COMPARISON: None. DLP: 1818.[address] scans at [facility] use at least one of these dose optimization techniques: automated e xposure control; mA and/or kV adjustment per patient size (includes targeted exams where dose is matc hed to clinical indication); or iterative reconstruction. FINDINGS: Mild lumbar curve. No acute compression. Disc space narrowing worse in the lower thoracic spine, L4-L 5 and L5-S1. Grade 1 anterolisthesis L5 on S1 measuring 8 mm. Slight anterolisthesis L4 on L5 measuri ng 3 mm. Disc bulging L4-L5 and L5-S1 vacuum disc phenomenon. Adrenal glands are normal. Sigmoid diverticulosis. Normal caliber distal abdominal aorta. 3 mm calcul us in the RIGHT proximal ureter with mild RIGHT hydronephrosis unchanged since May 15, 2022. [place] nephrosis is new compared to previous. Degenerative arthritis both sacroiliac joints. L1-L2: Normal. L2-L3: Normal. L3-L4: Mild annular bulging. Moderate central canal stenosis. Moderate facet arthropathy with ligame ntum flavum hypertrophy. Foramen are patent. L4-L5: Slight anterolisthesis L4 on L5 with severe central canal stenosis due to disc bulging with ad vanced facet arthropathy ligament flavum hypertrophy. Impingement traversing L5 nerve roots bilateral ly. Mild to moderate RIGHT foraminal narrowing. L5-S1: Grade 1 anterolisthesis L5 on S1 measuring 8 mm. Slight impingement traversing S1 nerve roots bilaterally. Advanced facet arthropathy. Mild central canal stenosis with mild to moderate bilateral bony foraminal narrowing. Visualized pelvic bony structures: Normal. Paravertebral soft tissues: Normal.
--- NOTE | 2022-06-24 14:33 | CT_ITS ---
WS: [id number] CT THORACIC SPINE TECHNIQUE: Noncontrast CT of the thoracic spine with coronal and sagittal reformatted images. CLINICAL INFORMATION: falls, cancer hx COMPARISON: None. DLP: 1818.[address] scans at [facility] use at least one of these dose optimization techniques: automated e xposure control; mA and/or kV adjustment per patient size (includes targeted exams where dose is matc hed to clinical indication); or iterative reconstruction. FINDINGS: Mild thoracic curve. Mild thoracic kyphosis. No acute compression fractures. Moderate spondylitic nolvia nges. Disc space narrowing in the mid thoracic spine. Anterior hypertrophic changes. No high-grade ce ntral canal stenosis. No evidence of bony metastatic disease. No high-grade central canal stenosis. M oderate facet arthropathy lower thoracic spine. Interstitial thickening in the lung bases. Trace pleural fluid in the lung bases. Bibasilar atelectas is. Splenic artery calcification. CT/CT thoracic spin wo con* [id number] IMPRESSION: 1. No acute thoracic spine findings. 2. Trace bilateral pleural fluid with bibasilar atelectasis and interstitial t hickening in the lung bases. 3. No acute compression fractures.
--- NOTE | 2022-06-24 16:20 | CTR_ITS ---
PROCEDURE INFORMATION: Exam: CT Chest Without and With Contrast; Diagnostic Exam date and time: 06/24/2022 8:45 PM Age: 86 years old Clinical indication: Abdominal pain; Other: Residual in lung bases seen on earlier CT t/l spine; Prior surgery; Additional info: R/O pyelo, urology protocol, with and without contrast, delayed images, as per Dr. Solo TECHNIQUE: Imaging protocol: Diagnostic computed tomography of the chest without and with contrast. Radiation optimization: All CT scans at this facility use at least one of these dose optimization techniques: automated exposure control; mA and/or kV adjustment per patient size (includes targeted exams where dose is matched to clinical indication); or iterative reconstruction. Contrast material: OMNIPAQUE 350; Contrast volume: 95 ml; Contrast route: INTRAVENOUS (IV); COMPARISON: 1. CT chest abd pel w con* 2022-05-15 14:13 2. CR XR hip RT 2-3V wo/w pel* [id number] 2022-06-17 13:12 3. CR XR chest 1V portable [id number] 2022-06-23 15:53 RADIATION DOSE METRICS: Total DLP (mGy-cm): 2748.68 FINDINGS: Tubes, catheters and devices: ICD leads. Right axillary dissection clips. Lungs: Peripheral interlobular septal thickening and mild bronchiectasis. Scattered pulmonary granulomas. Diffuse interstitial thickening, question pulmonary fibrosis and SI PE type pattern. Pleural spaces: Unremarkable. No pneumothorax. No pleural effusion. Heart: Mitral annulus calcifications. Moderate coronary artery calcifications. Mild cardiac enlargement. Lymph nodes: Unremarkable. No enlarged lymph nodes. Vasculature: Mild aortic atherosclerosis. Mild pulmonary artery enlargement. Narrowed left subclavian vein with substantial collateral flow. Bones/joints: Advanced chronic left shoulder degenerative joint disease. Soft tissues: Evidence of a prior right mastectomy. Irregular right breast mass measuring 1.5 cm, previously 1 cm, suspect local recurrence. PROCEDURE INFORMATION: Exam: CT Abdomen And Pelvis Without And With Contrast Exam date and time: 06/24/2022 8:45 PM Age: 86 years old Clinical indication: Abdominal pain; Other: Residual in lung bases seen on earlier CT t/l spine; Prior surgery; Additional info: R/O pyelo, urology protocol, with and without contrast, delayed images, as per Dr. Solo TECHNIQUE: Imaging protocol: Computed tomography of the abdomen and pelvis without and with contrast. Radiation optimization: All CT scans at this facility use at least one of these dose optimization techniques: automated exposure control; mA and/or kV adjustment per patient size (includes targeted exams where dose is matched to clinical indication); or iterative reconstruction. Contrast material: OMNIPAQUE 350; Contrast volume: 95 ml; Contrast route: INTRAVENOUS (IV); COMPARISON: 1. CT chest abd pel w con* 2022-05-15 14:13 2. CR XR hip RT 2-3V wo/w pel* [id number] 2022-06-17 13:12 3. CR XR chest 1V portable [id number] 2022-06-23 15:53 RADIATION DOSE METRICS: Total DLP (mGy-cm): 2748.68 FINDINGS: Liver: Hepatic steatosis. Mild periportal edema. Gallbladder and bile ducts: Cholecystectomy. Pancreas: Normal. No ductal dilation. Spleen: Normal. No splenomegaly. Adrenal glands: Normal. No mass. Kidneys and ureters: Moderate right hydronephrosis related to an upper right ureteral obstructing 5 mm calculus. Right perinephric stranding, and urothelial enhancement/ureteritis. Stomach and bowel: Diverticulosis coli. Appendix: No evidence of appendicitis. Intraperitoneal space: Trace free fluid in the pelvis. Vasculature: Couple scattered small splenic artery calcifications. Lymph nodes: Unremarkable. No enlarged lymph nodes. Urinary bladder: Unremarkable as visualized. Reproductive: Unremarkable as visualized. Bones/joints: Moderate lumbar spondylosis. Moderate thoracic lumbar spondylosis. Soft tissues: Unremarkable. CT/CT chest abd pel wo/w con IMPRESSION: 1. Excessive interstitial opacities in the lungs, question edema or atypical infection. 2. Evidence of a prior right mastectomy. Irregular right breast mass measuring 1.5 cm, previously 1 cm, suspect local recurrence. Recommend follow-up. IMPRESSION: 1. Moderate right hydronephrosis related to an upper right ureteral obstructing 5 mm calculus. Right perinephric stranding, and urothelial enhancement/ureteritis. 2. Trace free fluid in the pelvis.
--- NOTE | 2022-06-24 16:26 | PM.MISC ---
Miscellaneous Note Note: Dr. Solo called with results of patient's lumbar CT. He states that she has severe central canal stenosis which might need surgical evaluation however in light of her severe neutropenia she may not be candidate at this time. He also sees incomplete images of a possible pyelonephritis with some fat stranding around the kidney and obstructing urinary calculus. He suggested to further evaluate this with CT chest abdomen pelvis with and without contrast with urology protocol delayed images. I have ordered the above study after discussion with him. Will consider urology consult and spine surgery consult after results.
[2022-06-24 17:34] LABS: Glucose Point of Care 112 mg/dL (70-110)
[2022-06-24] MEDS: vancomycin 1,000 MG in sodium chloride 0.9% 250 ML 250 MG IV (17:35)
--- NOTE | 2022-06-24 18:10 | PC.NURSE ---
Patient resting in bed went to CT once, Dr. Biswas ordered another CT unable to obtain due to CT not ready for scan
[2022-06-24] MEDS: nortriptyline 25 mg Capsule 50 MG PO (20:12)
[2022-06-24] MEDS: iohexol 350 mg/mL 100 mL Btl IV (20:55)
[2022-06-24 21:48] LABS: Reticulocyte % 0.3 % (0.5-2.0)
[2022-06-24 21:49] LABS: Basophils % 1.7 %; Eosinophils % 1.7 %; Hematocrit 24.1 % (37.0-47.0); Hemoglobin 7.8 g/dL (11.5-15.3); Lymphocytes # 0.2 10^3/uL (0.8-4.8); Lymphocytes % 40.7 %; Mean Corpuscular HGB Conc 32.4 g/dL (30.0-36.0); Mean Corpuscular Hemoglobin 29.7 pg (28.0-34.0); Mean Corpuscular Volume 91.6 fl (81-99); Mean Platelet Volume 9.5 fL (7.4-10.4); Monocytes # 0.1 10^3/uL (0.2-0.9); Monocytes % 13.6 %; Neutrophils % 37.2 %; Nucleated Red Blood Cells % 0 %; Platelet Count 114 10^3/cmm (130-400); Positive C 1; Positive M 1; Red Blood Count 2.63 10^6/uL (4.1-5.3); Red Cell Distribution Width 14.6 % (12.1-15.1)
[2022-06-24 22:25] LABS: White Blood Count 0.6 10^3/uL (4.0-10.0)
[2022-06-24 22:31] LABS: Neutrophils # 0.22 10^3/uL (1.8-7.7)
[2022-06-25] VITALS (21 sets, daily range): BP systolic 142–169; BP diastolic 58–115; PULSE 59–77; RESP 16–27; TEMP 36.6; O2SAT 89–97
[2022-06-25 03:49] LABS: Hematocrit 25.6 % (37.0-47.0); Lymphocytes # 0.3 10^3/uL (0.8-4.8); Lymphocytes % 30.3 %; Mean Corpuscular HGB Conc 31.3 g/dL (30.0-36.0); Mean Corpuscular Hemoglobin 29.2 pg (28.0-34.0); Mean Corpuscular Volume 93.4 fl (81-99); Mean Platelet Volume 9.9 fL (7.4-10.4); Monocytes # 0.2 10^3/uL (0.2-0.9); Monocytes % 15.2 %; Neutrophils % 44.4 %; Nucleated Red Blood Cells % 0 %; Platelet Count 121 10^3/cmm (130-400); Positive C 1; Positive M 1; Red Blood Count 2.74 10^6/uL (4.1-5.3); Red Cell Distribution Width 14.8 % (12.1-15.1)
[2022-06-25 04:05] LABS: Slide Review Slide Review Perform
[2022-06-25 04:15] LABS: Anion Gap 12.1 (5-19); Blood Urea Nitrogen 11 mg/dL (8-23); Calcium 8.7 mg/dL (8.5-10.5); Carbon Dioxide 25 mmol/L (22-29); Chloride 105 mmol/L (98-107); Glucose 135 mg/dL (65-115); Magnesium 1.8 mg/dL (1.7-2.3); Osmolality Calculated 287 mOsm/kg (285-295); Potassium 4.1 mmol/L (3.5-5.1); Sodium 138 mmol/L (136-145)
[2022-06-25 04:16] LABS: Neutrophils # 0.44 10^3/uL (1.8-7.7)
[2022-06-25] MEDS: levothyroxine 125 mcg Tablet PO (08:30)
[2022-06-25] MEDS: cyanocobalamin 1,000 mcg Tablet 1000 MCG PO (08:30)
[2022-06-25] MEDS: metoprolol tartrate 25 mg Tablet PO (08:30)
[2022-06-25] MEDS: gabapentin 400 mg Capsule 800 MG PO ×2 (08:30→18:19)
[2022-06-25] MEDS: apixaban 5 mg Tablet PO ×2 (08:30→18:19)
[2022-06-25] MEDS: duloxetine 60 mg Capsule PO (08:31)
[2022-06-25] MEDS: losartan 50 mg Tablet 25 MG PO (08:31)
[2022-06-25] MEDS: thiamine 100 mg Tablet 250 MG PO (08:31)
[2022-06-25] MEDS: magnesium oxide 400 mg tablet PO (08:31)
[2022-06-25] MEDS: sennosides-docusate Tablet 1 TAB PO (08:32)
[2022-06-25] MEDS: atorvastatin 40 mg Tablet 20 MG PO (08:32)
[2022-06-25] MEDS: cefepime 2,000 MG in sodium chloride 0.9% (plus) 50 ML 100 MG IV ×2 (08:33→20:11)
[2022-06-25] MEDS: famotidine 20 mg Tablet PO (08:33)
[2022-06-25] MEDS: sodium chloride 0.9% 1,000 ML 100 ML IV (08:41)
[2022-06-25 11:15] LABS: Estmated Average Glucose 134; Hemoglobin A1C 6.3 % (4.0-6.0)
[2022-06-25 11:22] LABS: Iron 88 ug/dL (37-145); Total Iron Binding Capacity 157 mcg/dl; Unsaturated Iron Binding 69 ug/dL (112-347)
[2022-06-25 11:25] LABS: Glucose Point of Care 114 mg/dL (70-110)
[2022-06-25 11:25] LABS: Procalcitonin 2.75 ng/mL (0-0.5)
[2022-06-25] MEDS: fluticasone nasal spray 16gm Btl 1 SPRAY NASAL ×2 (11:40→18:20)
[2022-06-25 12:11] LABS: Vitamin B12 > 2000 pg/mL (232-1245)
[2022-06-25 13:12] LABS: Adenovirus Not Detected (NOT DETECT); Chlamydia Pneumoniae Not Detected (NOT DETECT); Coronavirus 229E,HKU1,NL63,OC4 Not Detected (NOT DETECT); Human Metapneumovirus Not Detected (NOT DETECT); Human Rhinovirus/Enterovirus Not Detected (NOT DETECT); Influenza A Not Detected (NOT DETECT); Influenza A H1 Not Detected (NOT DETECT); Influenza A H1-2009 Not Detected (NOT DETECT); Influenza A H3 Not Detected (NOT DETECT); Influenza B Not Detected (NOT DETECT); Mycoplasma Pneumoniae Not Detected (NOT DETECT); Parainfluenza Virus Type 1 Not Detected (NOT DETECT); Parainfluenza Virus Type 2 Not Detected (NOT DETECT); Parainfluenza Virus Type 3 Not Detected (NOT DETECT); Parainfluenza Virus Type 4 Not Detected (NOT DETECT); Respiratory Syncytial Virus A Not Detected (NOT DETECT); Respiratory Syncytial Virus B Not Detected (NOT DETECT); SARS-COV-2 Not Detected (NOT DETECT)
--- NOTE | 2022-06-25 13:13 | P.PN_ITS ---
Subjective Subjective: Hospital course states she is feeling better. States does not have any further weakness in her legs. Did have multiple falls at home within last 1 week because of weakness and numbness in her legs. She attributes numbness in the legs from past back problems. Complaining of lower throat and itching at the back of her throat along with postnasal drip. Vitals/I&O/Wt Last Vital Signs Temp 97.8 F 06/25/22 04:00 Pulse 59 L 06/25/22 11:00 Resp 18 06/25/22 11:00 BP 143/67 06/25/22 11:00 Pulse Ox 96 06/25/22 11:00 O2 Del Method 06/24/22 20:03 06/24/22 06/25/22 06/25/22 22:59 06:59 14:59 Intake Total 510 / 2410 100 / 2510 725 / 725 Output Total 450 / 450 250 / 250 Balance 510 / 2410 -350 / 2060 475 / 475 Weight last 48 hrs Weight 76.657 kg Physical Exam Narrative: General: Alert oriented x3, patient seen sitting up in bed appearing comfortable at this time HEENT: Normocephalic, atraumatic, EOMI, breathing comfortably and normally no acute distress Cardio: Regular rate rhythm, normal S1-S2, Respiratory: Good bilateral air entry, mild rhonchi at bases GI: Abdomen soft, nontender, nondistended, bowel sounds +, no renal angle tenderness bilaterally Extremities: 1+ edema bilateral lower extremities Neuro: Nonfocal but right leg slightly weaker compared to left, seems chronic Data : 06/25/22 03:12 06/25/22 03:12 Micro: Microbiology 06/24/22 03:20 Urine Culture - Final Urine,Clean Catch 06/23/22 15:46 Blood Culture - Preliminary Blood NEGATIVE TO DATE 06/23/22 15:49 Blood Culture - Preliminary Blood NEGATIVE TO DATE A&P Assessment and plan (1) Neutropenia due to and not concurrent with chemotherapy: Status: Acute (2) Hydronephrosis with obstructing calculus: Status: Acute (3) Pyelonephritis of right kidney: Status: Acute (4) Fall: Status: Inactive (5) Malignant neoplasm of overlapping sites of right female breast: Status: Acute (6) Pacemaker: Status: Acute (7) Hypothyroidism: Status: Acute Qualifiers: Hypothyroidism type: unspecified Qualified Code(s): E03.9 - Hypothyroidism, unspecified (8) Hypertension: Status: Acute (9) Other manager terminal (current) drug therapy: Status: Acute (10) Hydronephrosis, right: Status: Acute (11) Fatigue: Status: Acute (12) Knee pain: Status: Inactive (13) Port-A-Cath in place: Status: Acute Plan Sepsis secondary to neutropenia in relation to chemotherapy: Neutropenia resolving. Follow-up blood cultures, urine culture. For now continue with vancomycin and cefepime. Will discontinue vancomycin if MRSA is negative. Check MRSA swab, COVID-[address] abdomen pelvis done yesterday concerning for right hydronephrosis with obstruction with the possibility of pyelonephritis. Clinical examination tolbert patient does not seem to have pyelonephritis as no renal angle tenderness. For now follow-up urine cultures and continue with the above antibiotics. Will consult Dr. Steve for further recommendations regarding obstructive hydronephrosis. Neutropenic precautions. Continue home famciclovir. Start on Flonase, Cepacol as needed Hypertension: Goal blood pressure less than 140/90 mmHg. Continue home antihypertensives including losartan, metoprolol. Will uptitrate medications accordingly. Continue other chronic medications including Eliquis, Cymbalta, gabapentin, levothyroxine, lorazepam as needed, nortriptyline. Severe spinal stenosis: As seen on CT scan. Will need to follow-up with neurosurgery as an outpatient for further evaluation and management. Analgesia: Home dose of hydrocodone Glycemic control: Not needed. Check A1c. Nutrition: Regular diet CODE STATUS: Full code PUD prophylaxis: Famotidine DVT prophylaxis: Eliquis 5 mg twice daily will suffice for DVT prophylaxis as well. Discharge planning: Home with caregivers once medically stable. Transfer to [facility]. This documentation was created by [employer] needle bar molder software. Every effort was made to ensure accuracy of needle bar molder. Any obvious errors or omissions should be clarified with the author of the document. Attestations Medical Necessity Statement*: Requires further hospitalization for management of neutropenia, obstructive hydronephrosis along with pyelonephritis Time Spent in Patient Care: Greater than 35 minutes Coding Level of Care Code Acute Senior Tax Analyst for Chg Fwd Diagnoses Neutropenia due to and not concurrent with chemotherapy D70.1; T45.1X5S Hydronephrosis with obstructing calculus N13.2 Pyelonephritis of right kidney N12 Fall W19.XXXA Malignant neoplasm of overlapping sites of right female breast C50.811 Pacemaker Z95.0 Hypothyroidism E03.9 Hypothyroidism type: unspecified Hypertension I10 Other manager terminal (current) drug therapy Z79.899 Hydronephrosis, right N13.30 Fatigue R53.83 Knee pain M25.569 Port-A-Cath in place Z95.828
[2022-06-25 13:28] LABS: Folate Level 6.1 ng/mL (4.8-37.3)
--- NOTE | 2022-06-25 15:11 | P.CONIM_ITS ---
Providers/Reason For Consult Consulting Physician/Specialty*: Urology/Steve Reason for Consult*: Right ureteral calculus Requesting Physician: Dr. Whitehead Attending Physician: Johnny Whitehead MD Primary Care Provider: Mone Chodwhury MD History of Present Illness History of Present Illness Carline Zavala is a 86 year old female who I evaluated for the first time today at the request of Dr. Whitehead for recently diagnosed 5 mm right proximal ureteral calculus with obstructive changes on CT scan done yesterday. No prior history of kidney stones. It appears that the stone was in roughly the same position on 05/15/2022 but without evidence of obstructive changes. Patient is neutropenic secondary to recent chemotherapy. Urinalysis showed nitrite positive urine but only 5-10 white cells. No lower urinary tract symptoms. No fever or chills. No foul-smelling urine. No diagnosis of sepsis Has been placed on antibiotics empirically due to neutropenia Review of Systems Const: Reports: body aches; Denies: fever(s) or chills Eyes: Denies: yellow eyes ENMT: Denies: odynophagia or hoarseness Card: Denies: chest pain Resp: Denies: dyspnea or productive cough GI: Reports: abdominal pain (She had some mild bilateral lower abdominal pain not clearly associated wit) : Reports: urinary frequency; Denies: flank pain or dysuria Musc: Denies: joint redness or joint warmth Skin/Breast: Denies: rash Neuro: Denies: confusion Psych: Reports: anxiety; Denies: depression or loss of interest Endo: Denies: flushing Nicholas/Lymph: Denies: enlarged lymph nodes All/Imm: Denies: urticaria or acute wheezing Medications/Allergies Home Medications Medication Instructions Recorded Confirmed Last Taken Type apixaban 5 mg tablet (Eliquis) 5 mg PO BID 07/16/20 06/23/22 06/23/22 History duloxetine 60 mg capsule,delayed 60 mg PO DAILY 07/16/20 06/23/22 06/23/22 History release gabapentin 800 mg tablet 800 mg PO BID 07/16/20 06/23/22 06/23/22 History levothyroxine 125 mcg tablet 125 mcg PO DAILY 07/16/20 06/23/22 06/23/22 History famotidine 20 mg tablet 20 mg PO DAILY #30 tabs 12/25/20 06/23/22 06/23/22 Rx furosemide 20 mg tablet 20 mg PO DAILY #90 tabs 12/25/20 06/23/22 06/23/22 Rx metoprolol tartrate 25 mg tablet 25 mg PO DAILY #90 tabs 12/25/20 06/23/22 06/23/22 Rx albuterol sulfate 90 mcg/actuation 1 inh inhalation QID PRN Shortness 04/19/21 06/23/22 Unknown History aerosol inhaler Of Breath cyanocobalamin (vitamin B-12) 1,000 mcg PO DAILY 04/19/21 06/23/22 06/23/22 History 1,000 mcg tablet (Vitamin B-12) nortriptyline 50 mg capsule 50 mg PO BEDTIME 04/19/21 06/23/22 06/22/22 History cholecalciferol (vitamin D3) 25 25 mcg PO DAILY 12/26/21 06/23/22 06/23/22 History mcg (1,000 unit) capsule atorvastatin 20 mg tablet 20 mg PO DAILY 02/21/22 06/23/22 06/23/22 History budesonide-formoterol HFA 80 1 puff inhalation BID 02/21/22 06/23/22 06/23/22 History mcg-4.5 mcg/actuation aerosol inhaler (Symbicort) cetirizine 10 mg tablet (Zyrtec) 10 mg PO DAILY PRN Allergy Symptoms 02/21/22 06/23/22 06/23/22 History inhalat.spacing dev,large mask 02/21/22 06/23/22 Unknown History (BreatheRite Spacer-Mask,Adult) thiamine HCl (vitamin B1) 250 mg 250 mg PO DAILY 02/24/22 06/23/22 06/23/22 History tablet ascorbic acid (vitamin C) 100 mg 100 mg PO DAILY 03/07/22 06/23/22 06/23/22 History tablet (Vitamin C) losartan 50 mg tablet 25 mg PO DAILY 05/26/22 06/23/22 06/23/22 History vitamin A-vitamin C-vit E-min 1 tab PO DAILY 05/26/22 06/23/22 06/23/22 History tablet lorazepam 1 mg tablet 0.5 - 1 mg PO Q6H PRN Severe 05/28/22 06/23/22 Unknown Rx Nausea #30 tabs prochlorperazine maleate 10 mg 10 mg PO Q4H PRN Mild Nausea #30 05/28/22 06/23/22 Unknown Rx tablet (Compazine) tabs famciclovir 500 mg tablet 500 mg PO Q8H for mouth #21 tabs 06/16/22 06/23/22 Unknown Rx hydrocodone 5 mg-acetaminophen 325 1 tab PO Q6H PRN pain #10 tabs 06/17/22 06/23/22 Unknown Rx mg tablet aspirin 81 mg tablet,delayed 81 mg PO DAILY 06/23/22 06/23/22 06/23/22 History release Allergies Allergy/AdvReac Type Severity Reaction Status Date / Time fentanyl Allergy ADR-Drowsy Verified 06/23/22 15:56 oxycodone [From OxyContin] Allergy ADR-Drowsy Verified 06/23/22 15:56 Current Medications Generic Name Dose Route Start Last Admin Trade Name Freq PRN Reason Stop Dose Admin Apixaban 5 mg 06/23/22 18:31 06/25/22 08:30 Apixaban 5 Mg Tablet PO 5 mg BID MEG Administration Atorvastatin Calcium 20 mg 06/24/22 09:00 06/25/22 08:32 Atorvastatin 40 Mg Tablet PO 20 mg DAILY MEG Administration Cyanocobalamin 1,000 mcg 06/24/22 09:00 06/25/22 08:30 Cyanocobalamin 1,000 Mcg Tablet PO 1,000 mcg DAILY MEG Administration Duloxetine HCl 60 mg 06/24/22 09:00 06/25/22 08:31 Duloxetine 60 Mg Capsule PO 60 mg DAILY MEG Administration Famotidine 20 mg 06/24/22 09:00 06/25/22 08:33 Famotidine 20 Mg Tablet PO 20 mg DAILY MEG Administration Fluticasone Propionate 1 spray 06/25/22 10:35 06/25/22 11:40 Fluticasone Nasal [place] 16gm Btl NASAL 1 spray BID MEG Administration Gabapentin 800 mg 06/24/22 09:00 06/25/22 08:30 Gabapentin 400 Mg Capsule PO 800 mg BID MEG Administration Cefepime HCl 2,000 mg/ Sodium 50 mls @ 100 mls/hr 06/24/22 09:00 06/25/22 09:03 Chloride IV Infused Q12H MEG Infusion Protocol Vancomycin HCl 1,000 mg/ 250 mls @ 250 mls/hr 06/24/22 18:00 06/25/22 08:42 Sodium Chloride IV Infused Q24H MEG Infusion Levothyroxine Sodium 125 mcg 06/24/22 09:00 06/25/22 08:30 Levothyroxine 125 Mcg Tablet PO 125 mcg DAILY MEG Administration Losartan Potassium 25 mg 06/24/22 09:00 06/25/22 08:31 Losartan 50 Mg Tablet PO 25 mg DAILY MEG Administration Magnesium Oxide 400 mg 06/24/22 09:00 06/25/22 08:31 Magnesium Oxide 400 Mg Tablet PO 400 mg DAILY MEG Administration Metoprolol Tartrate 25 mg 06/24/22 09:00 06/25/22 08:30 Metoprolol Tartrate 25 Mg Tablet PO 25 mg DAILY MEG Administration Non-Formulary Medication 500 mg 06/23/22 18:31 06/25/22 10:02 Famciclovir PO Not Given Q8H MEG Nortriptyline HCl 50 mg 06/23/22 21:00 06/24/22 20:12 Nortriptyline 25 Mg Capsule PO 50 mg BEDTIME MEG Administration Senna/Docusate Sodium 1 tab 06/24/22 09:00 06/25/22 08:32 Sennosides-Docusate Tablet PO 1 tab DAILY MEG Administration Thiamine Mononitrate 250 mg 06/24/22 09:00 06/25/22 08:31 Thiamine 100 Mg Tablet PO 250 mg DAILY MEG Administration PFSH Acute PFSH: Medical History Atrial fibrillation Borderline diabetes Charcot's arthropathy GERD (gastroesophageal reflux disease) History of abnormal cells from cervix Cervix removed at [place], [place] by Dr. Rosenthal History of skin cancer Left confucianism and right forearm removed Hyperlipidemia Hypertension Hypothyroidism Peripheral neuropathy Port-A-Cath in place 2021 - Dr. Chapman Triple negative breast cancer Surgical History History of cataract removal with insertion of prosthetic lens History of cholecystectomy (1982) History of foot surgery Left foot, plates placed History of knee replacement right total knee arthroplasty in 1994 and in 2004 History of removal of cervix but not uterus History of shoulder surgery (2006) rotator cuff repair on the left Hx of mastectomy (03/06/22) Mediport placement, right axillary sentinel lymph node biopsy, right mastectomy S/P cardiac pacemaker procedure Status post surgical removal of malignant neoplasm of skin skin cancer excisions from the right arm and left confucianism Family History Mother Dementia Father Lung disease Suicide Other Anemia CAD (coronary artery disease) Diabetes Heart disease Hyperlipidemia Hypertension Social History Smoking and tobacco status: never smoked Alcohol intake: never Vitals/I&O/Wt Last Vital Signs Temp 97.8 F 06/25/22 04:00 Pulse 59 L 06/25/22 11:00 Resp 18 06/25/22 11:00 BP 143/67 06/25/22 11:00 Pulse Ox 96 06/25/22 11:00 O2 Del Method 06/24/22 20:03 06/25/22 06/25/22 06/25/22 06:59 14:59 22:59 Intake Total 100 / 2510 725 / 725 Output Total 450 / 450 250 / 250 Balance -350 / 2060 475 / 475 Weight last 48 hrs Weight 169 lb Physical Exam Const: COMMON NORMALS: no acute distress, alert and well nourished GENERAL APPEARANCE: well kempt and well developed ORIENTATION/CONSCIOUSNESS: not confused HENMT: COMMON NORMALS: normocephalic HEAD & SCALP: normal to inspection and normocephalic Eye: COMMON NORMALS: conjunctivae normal CONJUNCTIVA: Yes conjunctivae normal Neck/C-Spine: GENERAL: Yes normal visual inspection Lymph: OTHER: No palpable inguinal lymphadenopathy. Chest: OTHER: Normal respiratory movements Resp: COMMON NORMALS: normal respiratory effort EFFORT & INSPECTION: Yes able to speak in complete sentences, No labored and No Actively coughing Cardio: COMMON NORMALS: regular rate and regular rhythm RATE: regular rate RHYTHM: regular rhythm GI: OTHER: Abdomen is soft and nontender. No flank pain. No palpable masses organomegaly appreciated : COMMON NORMALS: Yes no CVA tenderness BLADDER/KIDNEY EXAM: Yes no CVA tenderness OTHER: Bladder is nondistended. Nontender Back/Pelvis: COMMON NORMALS: no CVA tenderness Extremity: COMMON NORMALS: no clubbing, cyanosis or edema Neuro: COMMON NORMALS: no focal motor deficits SENSORIUM/ORIENTATION: Yes alert Psych: COMMON NORMALS: mental status grossly normal APPEARANCE: Yes grossly normal and Yes well kempt ATTITUDE: Yes calm and Yes engaged Skin: COMMON NORMALS: no rashes or lesions noted and no jaundice GENERAL SKIN EXAM: no rashes or lesions noted Data : 06/25/22 03:12 06/25/22 03:12 Micro: Microbiology 06/24/22 03:20 Urine Culture - Final Urine,Clean Catch 06/23/22 15:46 Blood Culture - Preliminary Blood NEGATIVE TO DATE 06/23/22 15:49 Blood Culture - Preliminary Blood NEGATIVE TO DATE A&P Assessment and plan (1) Right ureteral calculus: 5 mm right proximal ureteral stone identified on CT scan today with hydronephrosis. On retrospective review of CT scan in May it appears that the stone was present but probably slightly more proximally. At that time there was no obstructive change. No evidence of obstructive pyelonephritis. Status: Acute (2) Hydronephrosis, right: Status: Acute Plan 1. We will plan a KUB and likely definitive therapy of the stone given that it likely has been present for at least 5 weeks. During the time from the initial identification on CT scan till now it has developed obstructive type changes. I do not think there is any reason for emergency stenting from an infectious point of view at this time so we will wait on that. Serial KUBs. Consult Attestations Medical Necessity Statement: See attending Coding Level of Care Code Acute Engine Oiler for Helen Fwd Diagnoses Right ureteral calculus N20.1 Hydronephrosis, right N13.30
[2022-06-25] MEDS: diphenhydrAMINE 50 mg/mL SDV 1mL 25 MG IVP (15:32)
[2022-06-25] MEDS: cetylpyridinium Lozenge 1 EACH MUCOUS MEM (15:36)
[2022-06-25] MEDS: vancomycin 1,000 MG in sodium chloride 0.9% 250 ML 250 MG IV (18:19)
[2022-06-25] MEDS: nortriptyline 25 mg Capsule 50 MG PO (20:08)
[2022-06-26] VITALS (17 sets, daily range): BP systolic 130–180; BP diastolic 51–78; PULSE 53–80; RESP 16–41; TEMP 36.6–36.9; O2SAT 88–98
[2022-06-26 04:14] LABS: Basophils # 0.1 10^3/uL (0.0-0.1); Basophils % 1.8 %; Eosinophils % 0.3 %; Hematocrit 24.2 % (37.0-47.0); Lymphocytes # 0.4 10^3/uL (0.8-4.8); Lymphocytes % 11.9 %; Mean Corpuscular HGB Conc 33.1 g/dL (30.0-36.0); Mean Corpuscular Volume 90.6 fl (81-99); Mean Platelet Volume 10.2 fL (7.4-10.4); Monocytes # 0.3 10^3/uL (0.2-0.9); Neutrophils # 2.13 10^3/uL (1.8-7.7); Neutrophils % 64.8 %; Nucleated Red Blood Cells % 0.9 %; Platelet Count 116 10^3/cmm (130-400); Positive C 1; Positive M 1; Red Blood Count 2.67 10^6/uL (4.1-5.3); Red Cell Distribution Width 14.6 % (12.1-15.1); White Blood Count 3.3 10^3/uL (4.0-10.0)
[2022-06-26 04:39] LABS: Alanine Aminotransferase 10 U/L (0-33); Albumin Level 2.7 g/dL (3.5-5.2); Alkaline Phosphatase 68 U/L (35-105); Blood Urea Nitrogen 7 mg/dL (8-23); Carbon Dioxide 26 mmol/L (22-29); Chloride 104 mmol/L (98-107); Chol HDL Ratio 2.15 mg/dL (0.0-4.40); Cholesterol 71 mg/dL (0-200); Glucose 107 mg/dL (65-115); HDL Cholesterol 33 mg/dL (60-100); LDL Cholesterol Calculated 17 mg/dL (50-129); Osmolality Calculated 284 mOsm/kg (285-295); Sodium 138 mmol/L (136-145); Total Bilirubin 0.5 mg/dL (0.15-1.2); Total Protein 5.7 g/dL (6.6-8.7); Triglycerides 105 mg/dL (0-150); VLDL Cholestrol Calculation 21 mg/dL (0-30)
[2022-06-26 04:49] LABS: Anion Gap 12.2 (5-19); Aspartate Amino Transferase 20 U/L (0-32); Potassium 4.2 mmol/L (3.5-5.1)
[2022-06-26 06:49] LABS: Glucose Point of Care 102 mg/dL (70-110)
[2022-06-26] MEDS: thiamine 100 mg Tablet 250 MG PO (08:25)
[2022-06-26] MEDS: famotidine 20 mg Tablet PO (08:25)
[2022-06-26] MEDS: gabapentin 400 mg Capsule 800 MG PO ×2 (08:25→17:17)
[2022-06-26] MEDS: magnesium oxide 400 mg tablet PO (08:25)
[2022-06-26] MEDS: levothyroxine 125 mcg Tablet PO (08:26)
[2022-06-26] MEDS: losartan 50 mg Tablet 25 MG PO ×2 (08:26→13:47)
[2022-06-26] MEDS: sennosides-docusate Tablet 1 TAB PO (08:27)
[2022-06-26] MEDS: atorvastatin 40 mg Tablet 20 MG PO (08:27)
[2022-06-26] MEDS: cyanocobalamin 1,000 mcg Tablet 1000 MCG PO (08:27)
[2022-06-26] MEDS: duloxetine 60 mg Capsule PO (08:27)
[2022-06-26] MEDS: metoprolol tartrate 25 mg Tablet PO (08:28)
[2022-06-26] MEDS: cefepime 2,000 MG in sodium chloride 0.9% (plus) 50 ML 100 MG IV (08:29)
--- NOTE | 2022-06-26 10:30 | PC.SOCIAL ---
Pg 2 IMM Explained to pt Pg 2 IMM. No questions voiced. Provided pt a copy. Initialed, dated, & timed a copy & placed in chart.
[2022-06-26 11:28] LABS: Glucose Point of Care 129 mg/dL (70-110)
--- NOTE | 2022-06-26 12:40 | PM.PN ---
Subjective Subjective: Urology follow-up: She is feeling better. Denies flank pain on the right side. No obvious stone passage. No gross hematuria. Spoke with Dr. Whitehead who felt that she might be a good candidate for discharge tomorrow with her improving white count and no evidence of progressive infectious concerns. I discussed with her the CT scan findings demonstrating that the stone had been there over a month ago without obstruction and really had not progressed significantly since. Recommendation would be intervention with endoscopic treatment of the stone sooner than later due to the failure of effectively a course of conservative management for over 6-weeks timeframe. This could be done potentially before discharge even tomorrow afternoon or the following Thursday pending safety from a medical perspective. She would like to pursue sooner than later based on family logistics Vitals/I&O/Wt Last Vital Signs Temp 98.4 F 06/26/22 10:22 Pulse 61 06/26/22 10:22 Resp 16 06/26/22 10:22 BP 166/72 06/26/22 10:22 Pulse Ox 92 06/26/22 10:22 O2 Del Method 06/26/22 10:22 06/25/22 06/26/22 06/26/22 22:59 06:59 14:59 Intake Total 300 / 1025 530 / 530 Output Total 200 / 450 500 / 950 Balance 100 / 575 -500 / 75 530 / 530 Physical Exam Const: COMMON NORMALS: no acute distress, alert and well nourished GENERAL APPEARANCE: well kempt and well developed ORIENTATION/CONSCIOUSNESS: not confused Neck/C-Spine: GENERAL: Yes normal visual inspection Resp: COMMON NORMALS: normal respiratory effort EFFORT & INSPECTION: Yes able to speak in complete sentences, No labored and No Actively coughing Neuro: COMMON NORMALS: no focal motor deficits SENSORIUM/ORIENTATION: Yes alert Psych: COMMON NORMALS: mental status grossly normal APPEARANCE: Yes grossly normal and Yes well kempt ATTITUDE: Yes calm and Yes engaged Skin: COMMON NORMALS: no rashes or lesions noted and no jaundice GENERAL SKIN EXAM: no rashes or lesions noted Data : 06/26/22 03:32 06/26/22 03:32 Micro: Microbiology 06/24/22 03:20 Urine Culture - Final Urine,Clean Catch A&P Assessment and plan (1) Right ureteral calculus: Status: Acute (2) Hydronephrosis with obstructing calculus: Status: Acute Plan 1. We will review with hospitalist team to assess for appropriateness of timing of intervention for the stone. Could consider tomorrow afternoon or on outpatient basis as early as next Thursday. I reviewed with her my out of time schedule for the until 07/09/2022. 2. I reviewed all the above with Mrs. Zavala Attestations Medical Necessity Statement*: See attending. Coding Level of Care Code Acute Low Pressure Kettle Operator for Helen Pelaez Diagnoses Right ureteral calculus N20.1 Hydronephrosis with obstructing calculus N13.2
--- NOTE | 2022-06-26 13:34 | P.PN_ITS ---
Subjective Subjective: No acute events overnight. Patient has remained hemodynamically stable and afebrile. Today morning seen on [facility] floor with family at bedside. Patient denies any nausea, vomiting, headache, flank pain, dizziness, runny nose, sore throat. States she is feeling better. Wondering if she can wo rk with physical therapy. Vitals/I&O/Wt Last Vital Signs Temp 98.4 F 06/26/22 10:22 Pulse 61 06/26/22 10:22 Resp 16 06/26/22 10:22 BP 166/72 06/26/22 10:22 Pulse Ox 92 06/26/22 10:22 O2 Del Method 06/26/22 10:22 06/25/22 06/26/22 06/26/22 22:59 06:59 14:59 Intake Total 300 / 1025 770 / 770 Output Total 200 / 450 500 / 950 Balance 100 / 575 -500 / 75 770 / 770 Physical Exam Narrative: General: Alert oriented x3, patient seen sitting up in bed appea ring comfortable at this time HEENT: Normocephalic, atraumatic, EOMI, breathing comfortably and normally no acute distress Cardio: Regular rate rhythm, normal S1-S2, Respiratory: Good bilateral air entry, mild rhonchi at bases GI: Abdomen soft, nontender, nondistended, bowel sounds +, no renal angle tenderness bilaterally Extremities: 1+ edema bilateral lower extremities Neuro: Nonfocal but right leg slightly weaker compared to left, seems chronic Data : 06/26/22 03:32 06/26/22 03:32 Micro: Microbiology 06/24/22 03:20 Urine Culture - Final Urine,Clean Catch A&P Assessment and plan (1) Neutropenia due to and not concurrent with chemotherapy: Status: Acute (2) Hydronephrosis with obstructing calculus: Status: Acute (3) Pyelonephritis of right kidney: Status: Ruled-out (4) Fall: Status: Inactive (5) Malignant neoplasm of overlapping sites of right female breast: Status: Acute (6) Pacemaker: Status: Acute (7) Hypothyroidism: Status: Acute Qualifiers: Hypothyroidism type: unspecified Qualified Code(s): E03.9 - Hypothyroidism, unspecified (8) Hypertension: Status: Acute (9) Other medical terminologist (current) drug therapy: Status: Acute (10) Hydronephrosis, right: Status: Acute (11) Fatigue: Status: Acute (12) Knee pain: Status: Inactive (13) Port-A-Cath in place: Status: Acute Plan Sepsis secondary to neutropenia in relation to chemotherapy: Neutropenia resolving. Follow-up blood cultures, urine culture. For now continue with vancomycin and cefepime. Will discontinue vancomycin if MRSA is negative. Check MRSA swab, COVID-[address] abdomen pelvis done yesterday concerning for right hydronephrosis with obstruction with the possibility of pyelonephritis. Clinical examination tolbert patient does not seem to have pyelonephritis as no renal angle tenderness. For now follow-up urine cultures and continue with the above antibiotics. Will consult Dr. Steve for further recommendations regarding obstructive hydronephrosis. Neutropenic precautions. Continue home famciclovir. Start on Flonase, Cepacol as needed Hypertension: Goal blood pressure less than 140/90 mmHg. Continue home antihypertensives including losartan, metoprolol. Will uptitrate medications accordingly. Continue other chronic medications including Eliquis, Cymbalta, gabapentin, levothyroxine, lorazepam as needed, nortriptyline. Severe spinal stenosis: As seen on CT scan. Will need to follow-up with neurosurgery as an outpatient for further evaluation and management. Analgesia: Home dose of hydrocodone Glycemic control: Not needed. Check A1c. Nutrition: Regular diet CODE STATUS: Full code PUD prophylaxis: Famotidine DVT prophylaxis: Eliquis 5 mg twice daily will suffice for DVT prophylaxis as well. Discharge planning: Home with caregivers once medically stable. Transfer to [facility]. Plan for the day: Monitor blood cultures. Hold off on vancomycin and cefepime. Start Levaquin 500 mg daily for overall 5-day course. Goal blood pressure less than 140/90 mmHg. Increase dose of losartan to 50 mg daily. Give extra 25 mg today. Continue with metoprolol 25 mg daily. Physical therapy evaluation. Eventual plan for stone removal or as an outpatient. This documentation was created by [employer] supervisor heavy equipment software. Every effort was made to ensure accuracy of supervisor heavy equipment. Any obvious errors or omissions should be clarified with the author of the document. Attestations Medical Necessity Statement*: Requires further neutropenic fever in relation to chemotherapy, right obstructive hydronephrosis Time Spent in Patient Care: Greater than 35 minutes Coding Level of Care Code Acute Institutional Aide for Chg Fwd Diagnoses Neutropenia due to and not concurrent with chemotherapy D70.1; T45.1X5S Hydronephrosis with obstructing calculus N13.2 Pyelonephritis of right kidney N12 Fall W19.XXXA Malignant neoplasm of overlapping sites of right female breast C50.811 Pacemaker Z95.0 Hypothyroidism E03.9 Hypothyroidism type: unspecified Hypertension I10 Other retirement (current) drug therapy Z79.899 Hydronephrosis, right N13.30 Fatigue R53.83 Knee pain M25.569 Port-A-Cath in place Z95.828
[2022-06-26 17:14] LABS: Glucose Point of Care 107 mg/dL (70-110)
[2022-06-26] MEDS: apixaban 5 mg Tablet PO (17:17)
[2022-06-26] MEDS: nortriptyline 25 mg Capsule 50 MG PO (20:49)
[2022-06-26 21:46] LABS: Glucose Point of Care 121 mg/dL (70-110)
[2022-06-27 03:00] VITALS: BP 148/73; PULSE 66; RESP 16; TEMP 36.8; O2SAT 92
[2022-06-27] MEDS: levoFLOXacin 500 mg Tablet PO (05:11)
[2022-06-27] MEDS: HYDROcodone-acetaminophen 5-325 mg Tablet 1 TAB PO (05:11)
[2022-06-27 05:33] LABS: Hematocrit 25.2 % (37.0-47.0); Hemoglobin 8.4 g/dL (11.5-15.3); Mean Corpuscular HGB Conc 33.3 g/dL (30.0-36.0); Mean Corpuscular Hemoglobin 30.1 pg (28.0-34.0); Mean Corpuscular Volume 90.3 fl (81-99); Mean Platelet Volume 10.1 fL (7.4-10.4); Platelet Count 107 10^3/cmm (130-400); Positive C 1; Positive M 1; Red Blood Count 2.79 10^6/uL (4.1-5.3); Red Cell Distribution Width 14.2 % (12.1-15.1); White Blood Count 6.6 10^3/uL (4.0-10.0)
[2022-06-27 05:54] LABS: Alanine Aminotransferase 10 U/L (0-33); Albumin Level 2.9 g/dL (3.5-5.2); Alkaline Phosphatase 77 U/L (35-105); Aspartate Amino Transferase 19 U/L (0-32); Blood Urea Nitrogen 4 mg/dL (8-23); Carbon Dioxide 28 mmol/L (22-29); Chloride 101 mmol/L (98-107); Globulin 2.9 g/dL (1.3-4.6); Glucose 103 mg/dL (65-115); Osmolality Calculated 281 mOsm/kg (285-295); Sodium 137 mmol/L (136-145); Total Bilirubin 0.5 mg/dL (0.15-1.2); Total Protein 5.8 g/dL (6.6-8.7)
[2022-06-27 06:01] LABS: Total Cells Counted 100 (0-100)
[2022-06-27 06:07] LABS: Band Neutrophils Absolute 0.9 10^3/cmm (0.0-1.2); Eosinophils 0 %; Lymphocytes 8 %; Lymphocytes Absolute 0.5 10^3/cmm (1.2-3.4); Monocytes Absolute 1.1 10^3/cmm (0.1-0.6); Segmented Neutrophils 60 %
[2022-06-27 06:08] LABS: Absolute Neutrophil 4.8 10^3/cmm (1.4-6.5); Anisocytosis 1+; Platelet Estimate Decreased (Normal); Polychromasia 1+
[2022-06-27 06:55] LABS: Glucose Point of Care 111 mg/dL (70-110)
[2022-06-27 07:00] VITALS: BP 124/57; PULSE 65; RESP 17; TEMP 36.6; O2SAT 92
--- NOTE | 2022-06-27 07:26 | P.PN_ITS ---
Subjective Subjective: Urology follow-up: She feels she is doing well. No flank pain. No gross hematuria. Would like to proceed with intervention for the right proximal ureteral stone ascidic is reasonable. Her blood counts are returning to normal. No longer neutropenic. Denies chest pain. Medications: Reviewed: Yes Vitals/I&O/Wt Last Vital Signs Temp 98.3 F 06/27/22 03:00 Pulse 66 06/27/22 03:00 Resp 16 06/27/22 03:00 BP 148/73 06/27/22 03:00 Pulse Ox 92 06/27/22 03:00 O2 Del Method 06/27/22 03:00 06/26/22 06/27/22 06/27/22 22:59 06:59 14:59 Intake Total 480 / 1250 Output Total 400 / 400 Balance 480 / 1250 -400 / 850 Physical Exam Const: COMMON NORMALS: no acute distress, alert and well nourished GENERAL APPEARANCE: well kempt and well developed ORIENTATION/CONSCIOUSNESS: not confused Neck/C-Spine: GENERAL: Yes normal visual inspection Resp: COMMON NORMALS: normal respiratory effort EFFORT & INSPECTION: Yes able to speak in complete sentences, No labored and No Actively coughing Neuro: COMMON NORMALS: no focal motor deficits SENSORIUM/ORIENTATION: Yes alert Psych: COMMON NORMALS: mental status grossly normal APPEARANCE: Yes grossly normal and Yes well kempt ATTITUDE: Yes calm and Yes engaged Skin: COMMON NORMALS: no rashes or lesions noted and no jaundice GENERAL SKIN EXAM: no rashes or lesions noted Data : 06/27/22 04:51 06/27/22 04:51 Micro: Microbiology 06/25/22 10:55 MRSA Culture - Final Nose A&P Assessment and plan (1) Right ureteral calculus: Status: Acute (2) Hydronephrosis with obstructing calculus: Status: Acute Plan 1. She wants to pursue intervention for the right proximal ureteral stone 2. We will plan for CYSTOSCOPY, RIGHT: Retrograde, ureteroscopy, laser, stent on 06/30/2022. Informed consent was obtained. Surgery will be planned as an outpatient with anticipation of discharge today. 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 Diagnoses Right ureteral calculus N20.1 Hydronephrosis with obstructing calculus N13.2
[2022-06-27 08:12] VITALS: PULSE 60; RESP 16; O2SAT 96
[2022-06-27] MEDS: apixaban 5 mg Tablet PO (08:30)
[2022-06-27] MEDS: duloxetine 60 mg Capsule PO (08:31)
[2022-06-27] MEDS: gabapentin 400 mg Capsule 800 MG PO (08:31)
[2022-06-27] MEDS: atorvastatin 40 mg Tablet 20 MG PO (08:31)
[2022-06-27] MEDS: famotidine 20 mg Tablet PO (08:31)
[2022-06-27] MEDS: levothyroxine 125 mcg Tablet PO (08:31)
[2022-06-27] MEDS: thiamine 100 mg Tablet 250 MG PO (08:32)
[2022-06-27] MEDS: cyanocobalamin 1,000 mcg Tablet 1000 MCG PO (08:33)
[2022-06-27] MEDS: sennosides-docusate Tablet 1 TAB PO (08:34)
[2022-06-27] MEDS: magnesium oxide 400 mg tablet PO (08:34)
[2022-06-27 08:54] VITALS: BP 124/57
[2022-06-27] MEDS: losartan 50 mg Tablet PO (08:54)
[2022-06-27] MEDS: metoprolol tartrate 25 mg Tablet PO (08:54)
--- NOTE | 2022-06-27 09:00 | XR_ITS ---
WS: [id number] KUB, portable AP supine, 06/27/2022 Clinical Data: right obstructive nephropathy Comparison: CT chest abdomen pelvis, 06/24/2022 Findings: No abnormal intraabdominal masses are seen. No renal calcifications are seen. There are splenic arter y calcifications in the left upper quadrant. There are phleboliths in the true pelvis. There is a lar ge amount of fecal material throughout the colon. There are clips in the right upper quadrant from a cholecystectomy. There is no dilatated small bowel or evidence of obstruction. XR/XR KUB portable [id number] Impression: 1. Negative for definite renal or ureteral calculi. 2. Large amount of fecal material in the colon.
--- NOTE | 2022-06-27 09:47 | P.DS_ITS ---
Discharge Providers Date of Admission: 06/23/22 17:07 Date of Discharge: June 27, 2022 Attending Provider at Admission: Melinda Biswas MD Attending Provider at Discharge: Johnny Whitehead MD Consults: Urology: Dr. 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 Hastings presented to the hospital with chief complaint of worsening of fatigue and recurrent falls.? Patient is stating that her symptoms started on Thursday when she fell 4 times, she did not experience any syncopal events however she is endorsing extreme fatigue and lethargy.? She has not experienced any chest pain, diarrhea, vomiting, fever.? She is endorsing hot flashes with her fatigue.? She mostly stays dry.? She thinks she is losing weight.? She decided to come to the hospital today because of worsening of her symptoms and recurrent falls. Her family has not noticed any strokelike features, no history of metastatic disease in the past or spine compression fracture. In the ER she was diagnosed with neutropenia and Dr. Hastings has recommended prophylactic antibiotic coverage she will go to the ICU negative isolation room We will start her on vancomycin and cefepime for now She did receive Neulasta with her chemo last week. Hospital Course Hospital Course Patient went to the hospital further evaluation and management. On admission she was found to be neutropenia. She was started on prophylactic antibiotics. Blood cultures were taken. Her blood cultures and urine cultures during hos pitalization remain negative. COVID-19 PCR came back negative. She remained afebrile and hemodynamically stable. Antibiotics were stopped once blood culture remain negative and she was monitored for 24 hours. For weakness and numbness in her lower limbs she underwent CT scan of her back which is concerning severe spinal stenosis but as patient did not have any saddle anesthesia, urinary incontinence decision was made for her to follow-up as an outpatient with orthopedic surgeon. Patient verbalized understanding. On CT abdomen pelvis there was a concern for right hydronephrosis secondary to ureteral obstruction with a stone hence urology was consulted. Pyelonephritis was clinically ruled out. Patient is to follow-up as an outpatient on coming Saturday 06/30 for stone retrieval with Dr. Steve. She is been discharged in medically stable condition on her home medications. Her losartan dose has been increased to 50 mg daily. She is to take Levaquin for 3 more days. Physical Exam Narrative: General: Alert oriented x3, patient seen sitting up in bed appearing comfortable at this time HEENT: Normocephalic, atraumatic, EOMI, breathing comfortably and normally no acute distress Cardio: Regular rate rhythm, normal S1-S2, Respiratory: Good bilateral air entry, mild rhonchi at bases GI: Abdomen soft, nontender, nondistended, bowel sounds +, no renal angle tenderness bilaterally Extremities: 1+ edema bilateral lower extremities Neuro: Nonfocal but right leg slightly weaker compared to left, seems chronic Discharge Data Studies Completed and Pending Completed Studies During Hospitalization Category Date Time Status CT chest abd pel wo/w con Stat Cat Scan 06/24/22 16:[address] lumbar spine wo con* [id number] Routine Cat Scan 06/24/[address] thoracic spine wo con [CT thoracic spin wo con* Cat Scan 06/24/22 14:33 Completed [id number]] Routine XR KUB portable [id number] Routine Exams 06/27/22 09:00 Completed XR chest 1V portable [id number] Stat Exams 06/23/22 15:17 Completed Pending at discharge Category Date Time Status Blood Culture Stat Lab 06/23/22 15:46 Results Radiology Impressions Chest X-Ray 06/23/22 15:17 IMPRESSION: No acute findings. Lumbar Spine CT 06/24/22 00:00 IMPRESSION: 1. No acute compression fractures. No evidence of bony metastatic lesions. 2. Severe central canal stenosis L4-L5. Moderate central canal stenosis L3-L4. 3. Advanced facet arthropathy L4-L5 and L5-S1 with grade 1 anterolisthesis L5 on S1 described above. 4. Partially visualized obstructing 3 mm RIGHT proximal ureteral calculus with mild RIGHT hydronephrosis. Correlation with renal function. Suggestion of surrounding perinephric induration Notified Melinda Biswas MD at 06/24/2022 4:[address] 06/24/22 14:33 IMPRESSION: 1. No acute thoracic spine findings. 2. Trace bilateral pleural fluid with bibasilar atelectasis and interstitial thickening in the lung bases. 3. No acute compression fractures. Chest/Abdomen/Pelvis CT 06/24/22 16:20 IMPRESSION: 1. Excessive interstitial opacities in the lungs, question edema or atypical infection. 2. Evidence of a prior right mastectomy. Irregular right breast mass measuring 1.5 cm, previously 1 cm, suspect local recurrence. Recommend follow-up. IMPRESSION: 1. Moderate right hydronephrosis related to an upper right ureteral obstructing 5 mm calculus. Right perinephric stranding, and urothelial enhancement/ureteritis. 2. Trace free fluid in the pelvis. KUB X-Ray 06/27/22 09:00 Impression: 1. Negative for definite renal or ureteral calculi. 2. Large amount of fecal material in the colon. Microbiology 06/25/22 10:55 Nose MRSA Culture - Final 06/24/22 03:20 Urine,Clean Catch Urine Culture - Final 06/23/22 15:46 Blood Blood Culture - Preliminary NEGATIVE TO DATE 06/23/22 15:49 Blood Blood Culture - Preliminary NEGATIVE TO DATE Laboratory Results WBC 6.6 10^3/uL (4.0-10.0) 06/27/22 04:51 RBC 2.79 10^6/uL (4.1-5.3) L 06/27/22 04:51 Hgb 8.4 g/dL (11.5-15.3) L 06/27/22 04:51 Hct 25.2 % (37.0-47.0) L 06/27/22 04:51 MCV 90.3 fl (81-99) 06/27/22 04:51 MCH 30.1 pg (28.0-34.0) 06/27/22 04:51 MCHC 33.3 g/dL (30.0-36.0) 06/27/22 04:51 RDW 14.2 % (12.1-15.1) 06/27/22 04:51 Plt Count 107 10^3/cmm (130-400) L 06/27/22 04:51 MPV 10.1 fL (7.4-10.4) 06/27/22 04:51 Neut % (Auto) 64.8 % 06/26/22 03:32 Lymph % (Auto) Not Reportable 06/27/22 04:51 [place] % (Auto) Not Reportable 06/27/22 04:51 Eos % (Auto) 0.3 % 06/26/22 03:32 Baso % (Auto) 1.8 % 06/26/22 03:32 Reticulocyte % (Auto) 0.3 % (0.5-2.0) L 06/24/22 21:36 Neut # (Auto) 2.13 10^3/uL (1.8-7.7) 06/26/22 03:32 Lymph # (Auto) Not Reportable 06/27/22 04:51 [place] # (Auto) Not Reportable 06/27/22 04:51 Eos # (Auto) 0.0 10^3/uL (0.0-0.8) 06/26/22 03:32 Baso # (Auto) 0.1 10^3/uL (0.0-0.1) 06/26/22 03:32 Nucleated RBC % (auto) 0.9 % 06/26/22 03:32 Total Counted 100 (0-100) 06/27/22 04:51 Atypical Lymphs % 0.0 % (0-5) 06/27/22 04:51 Absolute Neutrophils 4.8 10^3/cmm (1.4-6.5) 06/27/22 04:51 Segmented Neutrophils 60 % 06/27/22 04:51 Abs Segm Neuts (Man) 4.0 10/cmm (1.6-7.1) 06/27/22 04:51 Band Neutrophils 13.0 % 06/27/22 04:51 Abs Band Neuts (Man) 0.9 10^3/cmm (0.0-1.2) 06/27/22 04:51 Absolute Lymphocytes 0.5 10^3/cmm (1.2-3.4) L 06/27/22 04:51 Lymphocytes (Manual) 8 % 06/27/22 04:51 Monocytes (Manual) 16.0 % 06/27/22 04:51 Absolute Monocytes 1.1 10^3/cmm (0.1-0.6) H 06/27/22 04:51 Eosinophils (Manual) 0 % 06/27/22 04:51 Absolute Eosinophils 0.0 10^3/cmm (0.0-0.7) 06/27/22 04:51 Basophils (Manual) 0.0 % 06/27/22 04:51 Absolute Basophils 0.0 10^3/cmm (0.0-0.2) 06/27/22 04:51 Metamyelocytes 3.0 % 06/27/22 04:51 Nucleated RBCs 3.0 /100WBC (0-1) H 06/27/22 04:51 Nucleated RBCs # 0.0 /100WBC 06/26/22 03:32 Platelet Estimate Decreased (Normal) L 06/27/22 04:51 Polychromasia 1+ H 06/27/22 04:51 Anisocytosis 1+ H 06/27/22 04:51 Sodium 137 mmol/L (136-145) 06/27/22 04:51 Potassium 4.0 mmol/L (3.5-5.1) 06/27/22 04:51 Chloride 101 mmol/L (98-107) 06/27/22 04:51 Carbon Dioxide 28 mmol/L (22-29) 06/27/22 04:51 Anion Gap 12.0 (5-19) 06/27/22 04:51 BUN 4 mg/dL (8-23) L 06/27/22 04:51 Creatinine 0.6 mg/dL (0.5-0.9) 06/27/22 04:51 GFR Calculation Not Reportable 06/27/22 04:51 Glucose 103 mg/dL (65-115) 06/27/22 04:51 POC Glucose 111 mg/dL (70-110) H 06/27/22 06:46 Estimat Average Glucose 134 06/25/22 03:12 Hemoglobin A1c 6.3 % (4.0-6.0) H 06/25/22 03:12 Calculated Osmolality 281 mOsm/kg (285-295) L 06/27/22 04:51 Calcium 9.0 mg/dL (8.5-10.5) 06/27/22 04:51 Phosphorus 2.8 mg/dL (2.5-4.5) 06/24/22 03:19 Magnesium 1.8 mg/dL (1.7-2.3) 06/25/22 03:12 Iron 88 ug/dL (37-145) 06/25/22 03:12 TIBC 157 mcg/dl 06/25/22 03:12 % Saturation 56.0 % (20-50) H 06/25/22 03:12 Unsat Iron Binding 69 ug/dL (112-347) L 06/25/22 03:12 Total Bilirubin 0.5 mg/dL (0.15-1.2) 06/27/22 04:51 AST 19 U/L (0-32) 06/27/22 04:51 ALT 10 U/L (0-33) 06/27/22 04:51 Alkaline Phosphatase 77 U/L (35-105) 06/27/22 04:51 Total Protein 5.8 g/dL (6.6-8.7) L 06/27/22 04:51 Albumin 2.9 g/dL (3.5-5.2) L 06/27/22 04:51 Globulin 2.9 g/dL (1.3-4.6) 06/27/22 04:51 Triglycerides 105 mg/dL (0-150) 06/26/22 03:32 Cholesterol 71 mg/dL (0-200) 06/26/22 03:32 LDL Cholesterol, Calc 17 mg/dL (50-129) L 06/26/22 03:32 Total VLDL Cholesterol 21 mg/dL (0-30) 06/26/22 03:32 HDL Cholesterol 33 mg/dL (60-100) L 06/26/22 03:32 Cholesterol/HDL Ratio 2.15 mg/dL (0.0-4.40) 06/26/22 03:32 Vitamin B12 > 2000 pg/mL (232-1245) H 06/25/22 03:12 Folate 6.1 ng/mL (4.8-37.3) 06/25/22 12:40 Procalcitonin 2.75 ng/mL (0-0.5) H 06/25/22 03:12 TSH 2.84 uIU/mL (0.27-4.20) 06/23/22 15:00 Urine Color Dark yellow (Yellow) 06/24/22 03:20 Urine Appearance Sl hazy (CLEAR) 06/24/22 03:20 Urine pH 6 (5-7) 06/24/22 03:20 Ur Specific [place] 1.010 (1.005-1.030) 06/24/22 03:20 Urine Protein Neg (Negative) 06/24/22 03:20 Urine Glucose (UA) Norm (Normal) 06/24/22 03:20 Urine Ketones Negative (Negative) 06/24/22 03:20 Urine Blood 3+ (Negative) H 06/24/22 03:20 Urine Nitrate Positive (Negative) H 06/24/22 03:20 Urine Bilirubin Neg (Negative) 06/24/22 03:20 Urine Urobilinogen Norm mg/dL (Negative) 06/24/22 03:20 Ur Leukocyte Esterase Negative (Negative) 06/24/22 03:20 Urine RBC Too numerous to cnt /hpf (0-2) H 06/24/22 03:20 Urine WBC 5-10 /hpf (0-5) H 06/24/22 03:20 Ur Squamous Epith Cells 0-4 /hpf (0-5) H 06/24/22 03:20 Amorphous Sediment Not Reportable 06/24/22 03:20 Urine Bacteria 3+ /hpf (NONE) H 06/24/22 03:20 Urine Yeast Trace /hpf 06/24/22 03:20 Coronavirus 229E (PCR) Not detected (NOT DETECT) 06/25/22 10:55 SARS-CoV-2 (PCR) Not detected (NOT DETECT) 06/25/22 10:55 Blood Type A Positive 06/24/22 08:08 Rho(D) Type Positive 06/24/22 08:08 Antibody Screen Negative 06/24/22 08:08 Crossmatch See Detail 06/24/22 08:08 Vitals Last Vital Signs Temp 97.8 F 06/27/22 07:00 Pulse 60 06/27/22 08:12 Resp 16 06/27/22 08:12 BP 124/57 06/27/22 08:54 Pulse Ox 96 06/27/22 08:12 O2 Del Method 06/27/22 08:12 Discharge Plan Discharge Patient Disposition: Home Condition: Stable Prescriptions: New levofloxacin 500 mg Tablet 500 mg PO DAILY@0600 Qty: 3 0RF Stool Softener-Laxative 8.6-50 mg Tablet 1 tab PO DAILY Qty: 30 0RF Continued metoprolol tartrate 25 mg tablet 25 mg PO DAILY Qty: 90 2RF famotidine 20 mg tablet 20 mg PO DAILY Qty: 30 2RF furosemide 20 mg tablet 20 mg PO DAILY Qty: 90 2RF cholecalciferol (vitamin D3) 25 mcg (1,000 unit) capsule 25 mcg PO DAILY duloxetine 60 mg capsule,delayed release(DR/EC) 60 mg PO DAILY gabapentin 800 mg tablet 800 mg PO BID levothyroxine 125 mcg tablet 125 mcg PO DAILY cetirizine [Zyrtec] 10 mg tablet 10 mg PO DAILY PRN (Reason: Allergy Symptoms) budesonide-formoterol [Symbicort] 80-4.5 mcg/actuation HFA aerosol inhaler 1 puff inhalation BID atorvastatin 20 mg tablet 20 mg PO DAILY thiamine HCl (vitamin B1) 250 mg tablet 250 mg PO DAILY famciclovir 500 mg tablet 500 mg PO Q8H Qty: 21 1RF cyanocobalamin (vitamin B-12) [Vitamin B-12] 1,000 mcg Tablet 1,000 mcg PO DAILY albuterol sulfate 90 mcg/actuation Hfa Aerosol Inhaler 1 inh INHALATION QID PRN (Reason: Shortness Of Breath) nortriptyline 50 mg Capsule 50 mg PO BEDTIME hydrocodone-acetaminophen 5-325 mg tablet 1 tab PO Q6H PRN (Reason: pain) Qty: 10 0RF aspirin 81 mg Tablet,Delayed Release (Dr/Ec) 81 mg PO DAILY Vitamin C 100 mg Tablet 100 mg PO DAILY vitamin A-vitamin C-vit E-min Tablet 1 tab PO DAILY prochlorperazine maleate [Compazine] 10 mg tablet 10 mg PO Q4H PRN (Reason: Mild Nausea) Qty: 30 3RF lorazepam 1 mg tablet 0.5 - 1 mg PO Q6H PRN (Reason: Severe Nausea) Qty: 30 3RF Changed losartan 50 mg tablet 50 mg PO DAILY Qty: 30 0RF Held Eliquis 5 mg tablet 5 mg PO BID Hold Instructions: Resume on 07/01/22. No Action (DME) [employer] Spacer-Mask,Adult Spacer See Rx Instructions .Route Rx Instructions: As directed Discharge Orders: Discharge Order (Routine); Ordered 06/27/22 Ordered By: Johnny Whitehead Referrals: Mone Chowdhury MD [Primary Care Provider] - 07/09/22 8:45 am Marlon Steve MD [Physician] - 06/30/22 Cesar Camacho DO [Physician] - 1 month Discharge Diet: Cardiac Discharge Activity: Resume usual activity and Increase activity as tolerated Patient Instructions: Laxative, Stool Softeners (By mouth), Levofloxacin (By mouth), Hydronephrosis (GEN), Opioid Safety Activity Restrictions/Additional Instructions: Please follow-up on Thursday at hospital to have stone retrieval with Dr. Steve. Please call Dr. Hastings's office on Thursday for further appointments of chemotherapy. Please follow-up with a primary care provider within the next 2 weeks for repeat CBC. Please take Levaquin as antibiotic for next 3 days. Do not take Eliquis for now. He can restart Eliquis on Thursday after procedure on Thursday. Dose of the losartan has been increased to 50 mg daily. Discharge Attestations Time Spent in Discharge Care*: greater than 30 min Specific Discharge Activities: educating patient, educating and/or supporting family/caregiver, discussing with pcp/other providers, discussing with block and case maker/social workers/dc planners, documenting/other paperwork and evaluating patient/reviewing data Status at Discharge: Cognitive status at discharge: cognitively intact , Behavioral status at discharge: cooperative , Functional status at discharge: independent ambulation , Quality Metrics Clinical Quality Measures [ No reported AMI, CVA or VTE this stay] Coding Level of Care Code Acute Chg FW DC note Medical Decision Making High Complexity Diagnoses Right ureteral calculus N20.1 Hydronephrosis with obstructing calculus N13.2
[2022-06-27 11:00] VITALS: BP 169/77; PULSE 60; RESP 17; TEMP 36.6; O2SAT 93
[2022-06-27 11:01] LABS: Glucose Point of Care 120 mg/dL (70-110)
[2022-06-27 12:40] VITALS: BP 169/77; PULSE 60; RESP 17; TEMP 36.6; O2SAT 93
== END 2022-06-27 12:30 | disposition home or self-care (01) | DRG 809 ==
LOC: ER 16:01 → ICU 19:10 → ER 19:11 → MEDSURG 06-26 05:09
PROVIDERS: Internal Medicine; Admitting Provider Internal Medicine; Emergency Provider Student in an Organized Health Care Education/Training Program; PCP Internal Medicine; Visit Provider Student in an Organized Health Care Education/Training Program
DX: D70.1 Agranulocytosis secondary to cancer chemotherapy (principal); I50.32 Chronic diastolic (congestive) heart failure; N13.2 Hydronephrosis with renal and ureteral calculous obstruction; T45.1X5A Adverse effect of antineoplastic and immunosuppressive drugs, initial encounter; C50.811 Malignant neoplasm of overlapping sites of right female breast; Z17.1 Estrogen receptor negative status [ER-]; Z90.11 Acquired absence of right breast and nipple; Z79.899 Other long term (current) drug therapy; R29.6 Repeated falls; I48.91 Unspecified atrial fibrillation; E11.610 Type 2 diabetes mellitus with diabetic neuropathic arthropathy; E11.42 Type 2 diabetes mellitus with diabetic polyneuropathy; K21.9 Gastro-esophageal reflux disease without esophagitis; Z85.828 Personal history of other malignant neoplasm of skin; E78.5 Hyperlipidemia, unspecified; I11.0 Hypertensive heart disease with heart failure; E03.9 Hypothyroidism, unspecified; Z96.651 Presence of right artificial knee joint; Z95.0 Presence of cardiac pacemaker; Z95.828 Presence of other vascular implants and grafts; I35.0 Nonrheumatic aortic (valve) stenosis; Z79.82 Long term (current) use of aspirin; Z79.891 Long term (current) use of opiate analgesic; M48.061 Spinal stenosis, lumbar region without neurogenic claudication; D64.9 Anemia, unspecified; E83.42 Hypomagnesemia; E86.0 Dehydration; I27.20 Pulmonary hypertension, unspecified
CPT/HCPCS: 36415; 36416; 36430; 71045; 71260; 72128; 72131; 72133; 74018; 74178; 80048; 80053; 80061; 81001; 82607; 82746; 82962; 83036; 83540; 83550; 83735; 84100; 84145; 84443; 85007; 85014; 85018; 85025; 85045; 86850; 86900; 86920; 87040; 87086; 87635; 87641; 96365; 96372; 97110; 97161; 99285; 99291; J0692; J1200; J1815; J3370; J7030; J7050; P9040; Q9967

== ENCOUNTER 2022-06-30 07:37 | Day surgery (SDC) | payer MEDICARE, SELFPAY ==
[2022-06-27 16:40] VITALS: BMI 31.9
[2022-06-30] VITALS (9 sets, daily range): BP systolic 152–184; BP diastolic 70–98; PULSE 60–69; RESP 16–19; TEMP 36.7–37; O2SAT 96–100
--- NOTE | 2022-06-30 | SCC_ITS ---
Procedure done: 1. Cystoscopy, RIGHT retrograde ureteropyelogram 2. Right ureteroscopy, laser, stent 77.5 seconds of fluoroscopic guidance, for a cumulative dose of 22.8 mGy, was provided to Dr. Steve by the radiology department. C-arm images of the abdomen were saved for the patient's permanent record. [facility]
--- NOTE | 2022-06-30 06:19 | W.PM.OPSUD ---
Surgery/Procedure H&P Update DATE OF PROCEDURE: June 30, 2022 DATE H&P PERFORMED: 06/25/22 H&P UPDATE INFORMATION: I have reviewed H&P completed within last 30 days, I have examined patient prior to procedure, No changes to prior documentation and H&P is in [facility] EMR on date indicated CHANGES TO PREVIOUS DOCUMENTATION: I did review her KUB. Could not clearly see the stone. It was also not readily identified on her KUB from 06/27/2022. Reviewed the procedure with the patient as well as her son who have not met prior to lab discussed potential staged procedure if access to the stone is difficult. PREOP DIAGNOSIS: Right breast cancer PLANNED PROCEDURE: Operation Date: 06/30/22 09:10 Proposed Procedures p CYSTOSCOPY RIGHT RETROGRADE URETEROSCOPY LASER STENT [id number] MODIFIER 26,N20.1,N12(Not Applicable) - Marlon Steve MD s Retrograde Pyelogram(Right) - MD [facility] [place] Ureteroscopy(Right) - Marlon Steve MD s Laser Lithotripsy(Right) - Marlon Steve MD s Ureteral Stent Placement(Right) - Marlon Steve MD
--- NOTE | 2022-06-30 07:47 | XR_ITS ---
WS: [id number] Exam: XR KUB [id number] Date/Time of Exam: 06/30/2022 8:00 AM Reason For Exam: Preop right ureteroscopy, right proximal stone Comparison 06/27/2022. No sign of bowel obstruction or free air. No sign of organ enlargement. Signs of prior cholecystectom y. Vascular calcifications in the left abdomen. Degenerative changes and levoscoliosis of the lumbar spine. XR/XR KUB [id number] IMPRESSION: 1. No acute abdominal process. Additional nonacute findings as noted above.
--- NOTE | 2022-06-30 07:47 | SC_ITS ---
WS: [id number] INTRAOPERATIVE TECHNIQUE: 5 Spot fluoroscopic images for intraoperative purposes. FLUOROSCOPY TIME: 77.5 seconds CLINICAL INFORMATION: Refractory right proximal ureteral stone COMPARISON: None. FINDINGS: RIGHT ureteroscopy with contrast injection. Placement RIGHT double-J ureteral stent. History of proxi mal ureteral calculus with stricture. Cholecystectomy clips. SC/C-arm [place] for Urology IMPRESSION: Images obtained for intraoperative purposes.
[2022-06-30] MEDS: sodium chloride 0.9% 1,000 ML 30 ML IV (08:58)
--- NOTE | 2022-06-30 09:35 | P.OP_ITS ---
Operative Report Date of procedure: June 30, 2022 Pre-op diagnosis: Refractory right proximal ureteral stone with obstruction Post-op diagnosis: Refractory right proximal ureteral stone with obstruction Procedure done: 1. Cystoscopy, RIGHT retrograde ureteropyelogram 2. Right ureteroscopy, laser, stent Implants: 6 Kazakh by 26 cm double-pigtail stent without string Specimens removed/disposition: Stone fragments Pathology: Stone fragments Surgeon: Evi Estimated blood loss: Minimal Urine output: Not measured Complications: None Findings: Anesthesia: General Condition: Stable Disposition: PACU Intraoperative findings: * Stone in the expected position. No other stones identified. Was not impacted but there was a lot of inflammation above and below the stone. * Stone readily fragmented into sand-like fragments. Some business banking representative pieces extracted with an X catch basket. Brief History: Carline is a delightful 86-year-old white female recently hospitalized for severe leukopenia related to chemotherapy for breast cancer. She was having some vague abdominal symptoms and had a CT scan that showed a calcification in the right proximal ureter with obstructive changes. She had not really had any significant renal colicky type symptoms. On retrospective review of her prior CT scan on 05/15/2022 the stone appeared to be in the right proximal ureter but was not causing obstruction. She has failed to pass the stone. Still not symptomatic. Admitted today for outpatient surgical intervention endoscopically for the stone Procedure: After routine preoperative evaluation examination and obtaining of informed consent she was taken to the operating suite on 06/30/2022 where general anesthesia was administered without difficulty. Prepped and draped in the usual sterile fashion in dorsolithotomy position paying careful attention avoiding pressure points. Appropriate timeout was performed, SCDs confirmed to be functioning, preoperative antibiotics administered, beta-dalia protocol confirmed. Prepped and draped in usual sterile fashion in dorsolithotomy position paying careful attention to avoiding pressure points. 21 Kazakh cystoscope with 30 degree lens was introduced into the urethra meatus advanced into the bladder under videoscopy. Bladder was systematically examined. No gross abnormality. An 8 Kazakh cone-tip catheter was intubated to the right ureteral orifice for right retrograde ureteropyelogram which demonstrated: Normal distal ureter without filling defect or dilation. In the proximal ureter in the expected position there was a filling defect consistent with a stone. There was some narrowing above and below consistent with its longstanding position there. Pyelocalyceal system was dilated. Flexible tip guidewire was then advanced up the right ureter and curled to just below the stone. An open-ended ureteral catheter was then advanced over the guidewire to just below the stone and the wire was then repassed and easily passed into the kidney. A second guidewire was then passed. 1 wire was used as a safety wire and secured to the drapes the other as a working wire. The distal ureter was then dilated with a 15 Kazakh 4 cm balloon with no waist at 4 mable. A 38 cm ureteral access sheath was advanced over the wire easily to just below the level of the stone. And offset semirigid ureteroscope was then advanced easily up the right ureter to the stone. Stone was not completely identified due to the narrowing just below it but it was able to be seen well enough to fragment the stone with a 365 ?m thulium superpulse laser fiber which allowed passage of the scope into the stone location site and completely fragment the stone into smaller pieces. Some business banking representative fragments were then removed with a X catch basket but most of the fragmentation yielded sand The ureter was carefully inspected as the scope was removed with the sheath backloaded onto the hub. The ureter was in good shape distal to the stone location site. Cystoscope was then backloaded over the guidewire and a 6 Kazakh by 26 cm double-pigtail stent was advanced over the guidewire through the cystoscope into appropriate position as confirmed via fluoroscopy and cystoscopy. Stent was confirmed to be functioning. Bladder was drained and the procedure was completed. She tolerated procedure well without complications and was awakened in the operating room and returned to the recovery room in stable condition Plans: 1. Anticipate discharge from outpatient surgery 2. Follow-up late next week for cystoscopy and stent removal. No x-ray required.
[2022-06-30] MEDS: levofloxacin-dextrose 5 % 500 MG/100 ML PREMIX 100 MG IV (09:44)
[2022-06-30] MEDS: iohexol 300 mg/mL 50 mL Btl (OR ONLY) XX (10:32)
--- NOTE | 2022-06-30 10:59 | SUR.PHASEI ---
1048 PT TO PACU 5 PT AWAKES TO VOICE, PT COUGHS UP LARGE AMT CLEAR THIGK SECRETIONS, GOOD RESP EFFORT NOTED ON 8L MASK, SATS 97% NO DISTRESS NOTE DMONITOR PACED RYTHM IV TO LT SUBCLAVIAN PORT THAT WAS ACCESSED PRE OP, NS 400ML UP AT KVO RATE PER GRAVITY, ID BRACELET TO RT WRIST, PT ID'D WITH 2 IDENTIFIERS.BILAT SCDS ON, PT MOVES ALL EXTREMITIES TO COMMAND.
--- NOTE | 2022-06-30 12:52 | ANES.PREANE2 ---
Pre-Anesthetic Assessment Height/Weight: Height 1.55 m Weight 76.657 kg Temp Pulse Resp BP Pulse Ox O2 Del Method O2 Flow Rate 98.2 F 60 18 152/98 96 8 06/30/22 11:55 06/30/22 11:55 06/30/22 11:55 06/30/22 11:55 06/30/22 11:55 06/30/22 11:55 06/30/22 11:00 Preop Diagnosis: Refractory right proximal ureteral stone with obstruction Operation Date: 06/30/22 09:10 Proposed Procedures p CYSTOSCOPY RIGHT RETROGRADE URETEROSCOPY LASER STENT [id number] MODIFIER 26,N20.1,N12(Not Applicable) - Marlon Steve MD s Retrograde Pyelogram(Right) - MD pelon [place] Ureteroscopy(Right) - Marlon Steve MD s Laser Lithotripsy(Right) - Marlon Steve MD s Ureteral Stent Placement(Right) - Marlon Steve MD Familial anesthetic complications: PONV Was Beta João taken within 24 hours: Yes Was Clonidine taken within 24 hours: N/A Last intake: Intake Last Liquid Date 06/29/22 Last Liquid Time 21:30 Last Solid Date 06/29/22 Last Solid Time 17:00 Social Tobacco and No alcohol Exam alert, oriented x 3 and regular rate & rhythm Airway Submandibular: within normal limits Cervical ROM: within normal limits Mallampati: Class II Dentition: false Pulmonary Chronic Obstructive Pulmonary Disease and Exertional Dyspnea CV/HEM Coronary Artery Disease and Hypertension Metabolic Thyroid Disease Musc/skel Lower Back Pain and Osteoarthritis/DJD Neuropsych Anxiety and Depression Anesthetic Plan ASA status: 3 Anesthesia: General (TIVA) Medications/Allergies Home Medications Medication Instructions Recorded Confirmed Last Taken Type apixaban 5 mg tablet (Eliquis) 5 mg PO BID 07/16/20 06/27/22 06/27/22 08:30 History duloxetine 60 mg capsule,delayed 60 mg PO DAILY 07/16/20 06/30/22 06/23/22 History release gabapentin 800 mg tablet 800 mg PO BID 07/16/20 06/30/22 06/23/22 History levothyroxine 125 mcg tablet 125 mcg PO DAILY 07/16/20 06/27/22 06/23/22 History famotidine 20 mg tablet 20 mg PO DAILY #30 tabs 12/25/20 06/30/22 06/23/22 Rx furosemide 20 mg tablet 20 mg PO DAILY #90 tabs 12/25/20 06/27/22 06/23/22 Rx metoprolol tartrate 25 mg tablet 25 mg PO DAILY #90 tabs 12/25/20 06/30/22 06/30/22 Rx albuterol sulfate 90 mcg/actuation 2 inh inhalation QID PRN Shortness 04/19/21 06/27/22 Unknown History aerosol inhaler Of Breath cyanocobalamin (vitamin B-12) 1,000 mcg PO DAILY 04/19/21 06/27/22 06/23/22 History 1,000 mcg tablet (Vitamin B-12) nortriptyline 50 mg capsule 50 mg PO BEDTIME 04/19/21 06/27/22 06/22/22 History cholecalciferol (vitamin D3) 25 25 mcg PO DAILY 12/26/21 06/27/22 06/23/22 History mcg (1,000 unit) capsule atorvastatin 20 mg tablet 20 mg PO DAILY 02/21/22 06/30/22 06/29/22 History budesonide-formoterol HFA 80 1 puff inhalation BID 02/21/22 06/27/22 06/23/22 History mcg-4.5 mcg/actuation aerosol inhaler (Symbicort) cetirizine 10 mg tablet (Zyrtec) 10 mg PO DAILY PRN Allergy Symptoms 02/21/22 06/30/22 06/23/22 History inhalat.spacing dev,large mask 02/21/22 06/23/22 Unknown History (BreatheRite Spacer-Mask,Adult) thiamine HCl (vitamin B1) 250 mg 250 mg PO DAILY 02/24/22 06/27/22 06/23/22 History tablet ascorbic acid (vitamin C) 100 mg 100 mg PO DAILY 03/07/22 06/27/22 06/23/22 History tablet (Vitamin C) vitamin A-vitamin C-vit E-min 1 tab PO DAILY 05/26/22 06/27/22 06/23/22 History tablet lorazepam 1 mg tablet 0.5 - 1 mg PO Q6H PRN Severe 05/28/22 06/27/22 Unknown Rx Nausea #30 tabs prochlorperazine maleate 10 mg 10 mg PO Q4H PRN Mild Nausea #30 05/28/22 06/27/22 Unknown Rx tablet (Compazine) tabs famciclovir 500 mg tablet 500 mg PO Q8H for mouth #21 tabs 06/16/22 06/30/22 06/29/22 Rx hydrocodone 5 mg-acetaminophen 325 1 tab PO Q6H PRN pain #10 tabs 06/17/22 06/30/22 06/29/22 Rx mg tablet aspirin 81 mg tablet,delayed 81 mg PO DAILY 06/23/22 06/27/22 06/23/22 History release losartan 50 mg tablet 50 mg PO DAILY #30 tabs 06/27/22 06/27/22 06/23/22 Rx sennosides 8.6 mg-docusate sodium 1 tab PO DAILY #30 tabs 06/27/22 06/27/22 Unknown Rx 50 mg tablet (Stool Softener-Laxative) Allergies Allergy/AdvReac Type Severity Reaction Status Date / Time fentanyl Allergy ADR-Drowsy Verified 06/23/22 15:56 oxycodone [From OxyContin] Allergy ADR-Drowsy Verified 06/23/22 15:56 [facility] Anesthesia Medical History Atrial fibrillation Borderline diabetes Charcot's arthropathy GERD (gastroesophageal reflux disease) History of abnormal cells from cervix Cervix removed at [place], [place] by Dr. Rosenthal History of skin cancer Left hoahaoism and right forearm removed Hyperlipidemia Hypertension Hypothyroidism Peripheral neuropathy Port-A-Cath in place 2021 - Dr. Chapman Triple negative breast cancer Surgical History History of cataract removal with insertion of prosthetic lens History of cholecystectomy (1982) History of foot surgery Left foot, plates placed History of knee replacement right total knee arthroplasty in 1994 and in 2004 History of removal of cervix but not uterus History of shoulder surgery (2006) rotator cuff repair on the left Hx of mastectomy (03/06/22) Mediport placement, right axillary sentinel lymph node biopsy, right mastectomy S/P cardiac pacemaker procedure Status post surgical removal of malignant neoplasm of skin skin cancer excisions from the right arm and left hoahaoism Family History Mother Dementia Father Lung disease Suicide Other Anemia CAD (coronary artery disease) Diabetes Heart disease Hyperlipidemia Hypertension Social History Smoking and tobacco status: never smoked Alcohol intake: never Data Anesthesia Cardiac Studies: Echocardiogram 12/20/21 Echocardiogram Ultrasound 06/27/20 Sestamibi Stress Test (Cardiology) 09/04/20
--- NOTE | 2022-06-30 15:57 | ANE.PACU2 ---
Inpatient post-anesthesia follow up: Airway intact: Yes Vital signs: Temperature 98.2 F Pulse Rate 60 Respiratory Rate 18 Blood Pressure 152/98 Pulse Oximetry 96 Oxygen Delivery Me thod Room Air Oxygen Flow Rate 8 Fraction of Inspir ed Oxygen Hydration adequate: Yes Nausea and vomiting: No Pain level: 2 Mental status: Baseline
== END 2022-06-30 12:30 | disposition home or self-care (01) ==
PROVIDERS: PCP Internal Medicine; Visit Provider Urology
PROC: 0TJB8ZZ Inspection of Bladder, Via Natural or Artificial Opening Endoscopic (ICD-10-PCS; CPT 52000; principal; 2022-06-30 09:00)
PROC: (CPT 74420; 2022-06-30 09:00)
PROC: 0TJ98ZZ Inspection of Ureter, Via Natural or Artificial Opening Endoscopic (ICD-10-PCS; CPT 52351; 2022-06-30 09:00)
PROC: (CPT 52356; 2022-06-30 09:00)
PROC: (CPT 50605; 2022-06-30 09:00)
DX: N20.1 Calculus of ureter (principal); J44.9 Chronic obstructive pulmonary disease, unspecified; I25.10 Atherosclerotic heart disease of native coronary artery without angina pectoris; I10 Essential (primary) hypertension; I48.91 Unspecified atrial fibrillation; K21.9 Gastro-esophageal reflux disease without esophagitis; E78.5 Hyperlipidemia, unspecified; E03.9 Hypothyroidism, unspecified; Z85.828 Personal history of other malignant neoplasm of skin
CPT/HCPCS: 52356; 74018; 76000; 82365; 88300; C2625; J1956; J2405; J2704; J2710; J3010; J3490; J7030

== ENCOUNTER 2022-07-03 15:43 | Oncology outpatient (recurring) (ONCR) | payer MEDICARE, SELFPAY ==
[2022-06-11 10:02] LABS: Hematocrit 28.5 % (37.0-47.0); Hemoglobin 9.5 g/dL (11.5-15.3); Mean Corpuscular HGB Conc 33.3 g/dL (30.0-36.0); Mean Corpuscular Hemoglobin 30.6 pg (28.0-34.0); Mean Corpuscular Volume 91.9 fl (81-99); Mean Platelet Volume 10.9 fL (7.4-10.4); Platelet Count 86 10^3/cmm (130-400); White Blood Count 3.6 10^3/uL (4.0-10.0)
[2022-06-11 11:32] LABS: Absolute Segmented Neutrophil 2.2 10/cmm (1.6-7.1); Band Neutrophils Absolute 0.3 10^3/cmm (0.0-1.2); Eosinophils 1 %; Lymphocytes 17 %; Lymphocytes Absolute 0.6 10^3/cmm (1.2-3.4); Monocytes Absolute 0.3 10^3/cmm (0.1-0.6); Segmented Neutrophils 61 %; Total Cells Counted 100 (0-100)
[2022-06-11 11:37] LABS: Absolute Neutrophil 2.5 10^3/cmm (1.4-6.5); Hypochromasia 1+; Platelet Estimate Normal (Normal)
[2022-06-11 14:02] LABS: Add On to Lab Order(s) Added
[2022-06-11 14:17] LABS: Ferritin 310 ng/mL (15-150); Iron 28 ug/dL (37-145); Percent Saturation 15.6 % (20-50); Total Iron Binding Capacity 179 mcg/dl; Unsaturated Iron Binding 151 ug/dL (112-347)
[2022-06-11 14:22] LABS: Blood Urea Nitrogen 10 mg/dL (8-23); Carbon Dioxide 26 mmol/L (22-29); Chloride 96 mmol/L (98-107); Glucose 140 mg/dL (65-115); Osmolality Calculated 279 mOsm/kg (285-295); Sodium 134 mmol/L (136-145)
[2022-06-11 14:23] LABS: Alanine Aminotransferase 11 U/L (0-33); Albumin Level 3.6 g/dL (3.5-5.2); Alkaline Phosphatase 80 U/L (35-105); Aspartate Amino Transferase 16 U/L (0-32); Calcium 9.1 mg/dL (8.5-10.5); Globulin 2.8 g/dL (1.3-4.6); Total Bilirubin 0.9 mg/dL (0.15-1.2); Total Protein 6.4 g/dL (6.6-8.7)
[2022-06-16 09:38] LABS: Basophils # 0.1 10^3/uL (0.0-0.1); Basophils % 0.6 %; Hematocrit 30.6 % (37.0-47.0); Lymphocytes # 1.2 10^3/uL (0.8-4.8); Lymphocytes % 10.2 %; Mean Corpuscular HGB Conc 32.7 g/dL (30.0-36.0); Mean Corpuscular Hemoglobin 29.7 pg (28.0-34.0); Mean Corpuscular Volume 90.8 fl (81-99); Monocytes # 1.6 10^3/uL (0.2-0.9); Monocytes % 13.3 %; Neutrophils # 7.52 10^3/uL (1.8-7.7); Neutrophils % 63.1 %; Nucleated Red Blood Cells % 0.3 %; Platelet Count 259 10^3/cmm (130-400); Red Blood Count 3.37 10^6/uL (4.1-5.3); Red Cell Distribution Width 13.5 % (12.1-15.1); White Blood Count 11.9 10^3/uL (4.0-10.0)
[2022-06-16 10:08] LABS: Alanine Aminotransferase 11 U/L (0-33); Albumin Level 3.4 g/dL (3.5-5.2); Alkaline Phosphatase 84 U/L (35-105); Anion Gap 15.1 (5-19); Aspartate Amino Transferase 21 U/L (0-32); Blood Urea Nitrogen 12 mg/dL (8-23); Calcium 9.2 mg/dL (8.5-10.5); Carbon Dioxide 28 mmol/L (22-29); Chloride 96 mmol/L (98-107); Globulin 3.2 g/dL (1.3-4.6); Glucose 148 mg/dL (65-115); Osmolality Calculated 285 mOsm/kg (285-295); Potassium 3.1 mmol/L (3.5-5.1); Sodium 136 mmol/L (136-145); Total Bilirubin 0.7 mg/dL (0.15-1.2); Total Protein 6.6 g/dL (6.6-8.7)
[2022-06-16 10:35] LABS: Slide Review Slide Review Perform
[2022-06-16 11:00] VITALS: BMI 31.4
[2022-06-16] MEDS: alteplase 1 mg/mL SDV 2 mL 2 MG INTRACATH ×2 (11:08→12:18)
[2022-06-16] MEDS: diphenhydrAMINE 50 mg/mL SDV 1mL 25 MG IVP (14:08)
[2022-06-16] MEDS: famotidine 20 mg/2 mL INJ IVP (14:10)
[2022-06-16] MEDS: palonosetron 0.25 mg/5 mL SDV IVP (14:12)
[2022-06-16] MEDS: sodium chloride 0.9% 250 ML 75 ML IV (14:12)
[2022-06-16] MEDS: OLANZapine 5 mg TABLET PO (14:14)
[2022-06-16] MEDS: fosaprepitant 150 MG in sodium chloride 0.9% 150 ML 300 MG IV (14:32)
--- NOTE | 2022-06-16 14:43 | PC.NURSE ---
At 1205 cathflo dose repeated no blood return continues. Vanessa Calix RN, BSN, OCN
--- NOTE | 2022-06-16 14:44 | PC.NURSE ---
135 patient transported to radiology for flow study due to lack of blood return. Once patient prepped for dye injection line flushed with 10ml NSS and good blood return noted, so radiology flow study no longer indicated. Patient returned to infusion suite and medication administration started.
[2022-06-16] MEDS: DOXOrubicin 2 mg/ml MDV 106 MG IVP (14:58)
[2022-06-16] MEDS: pegfilgrastim 6 mg/0.6 mL Kit (onpro) SUBCUT (16:20)
[2022-06-16 16:40] VITALS: BP 122/74; PULSE 66; RESP 18; TEMP 36.2; O2SAT 98
== END 2022-07-04 23:59 | disposition home or self-care (01) ==
PROVIDERS: Nurse Practitioner; Nurse Practitioner Family; PCP Internal Medicine; Visit Provider Internal Medicine Medical Oncology
DX: C50.811 Malignant neoplasm of overlapping sites of right female breast (principal); Z17.1 Estrogen receptor negative status [ER-]; Z90.11 Acquired absence of right breast and nipple; Z95.828 Presence of other vascular implants and grafts; D70.1 Agranulocytosis secondary to cancer chemotherapy; D64.81 Anemia due to antineoplastic chemotherapy; T45.1X5A Adverse effect of antineoplastic and immunosuppressive drugs, initial encounter; N20.1 Calculus of ureter; Z79.899 Other long term (current) drug therapy; Z92.21 Personal history of antineoplastic chemotherapy
CPT/HCPCS: 36593; 80053; 82728; 83540; 83550; 85007; 85025; 96367; 96375; 96377; 96401; 96413; 99214; 99215; J1100; J1200; J1453; J2469; J2506; J2997; J3490; J7040; J7050; J9000; J9070

== ENCOUNTER 2022-07-11 11:26 | Oncology outpatient (recurring) (ONCR) | payer MEDICARE, SELFPAY ==
[2022-07-11 12:02] LABS: Basophils % 0.4 %; Eosinophils % 0.4 %; Lymphocytes # 0.7 10^3/uL (0.8-4.8); Lymphocytes % 10.2 %; Mean Corpuscular HGB Conc 33.3 g/dL (30.0-36.0); Mean Corpuscular Hemoglobin 31.3 pg (28.0-34.0); Mean Platelet Volume 9.5 fL (7.4-10.4); Monocytes # 1.1 10^3/uL (0.2-0.9); Neutrophils # 5.12 10^3/uL (1.8-7.7); Neutrophils % 72.4 %; Nucleated Red Blood Cells % 0 %; Platelet Count 250 10^3/cmm (130-400); Red Blood Count 3.19 10^6/uL (4.1-5.3); Red Cell Distribution Width 19.8 % (12.1-15.1); White Blood Count 7.1 10^3/uL (4.0-10.0)
[2022-07-11 12:26] LABS: Alanine Aminotransferase 9 U/L (0-33); Albumin Level 3.8 g/dL (3.5-5.2); Alkaline Phosphatase 72 U/L (35-105); Anion Gap 14.8 (5-19); Aspartate Amino Transferase 24 U/L (0-32); Blood Urea Nitrogen 7 mg/dL (8-23); Calcium 9.5 mg/dL (8.5-10.5); Carbon Dioxide 29 mmol/L (22-29); Chloride 96 mmol/L (98-107); Globulin 2.8 g/dL (1.3-4.6); Glucose 115 mg/dL (65-115); Osmolality Calculated 281 mOsm/kg (285-295); Potassium 3.8 mmol/L (3.5-5.1); Sodium 136 mmol/L (136-145); Total Bilirubin 0.6 mg/dL (0.15-1.2); Total Protein 6.6 g/dL (6.6-8.7)
== END 2022-08-04 23:59 | disposition home or self-care (01) ==
PROVIDERS: PCP Internal Medicine; Visit Provider Internal Medicine Medical Oncology
DX: C50.811 Malignant neoplasm of overlapping sites of right female breast; N20.1 Calculus of ureter; Z96.0 Presence of urogenital implants
CPT/HCPCS: 36591; 52310; 80053; 85025

== ENCOUNTER 2022-07-16 06:49 | Outpatient (CLI) | payer MEDICARE, SELFPAY ==
--- NOTE | 2022-07-16 07:15 | USCV_ITS ---
Carline Zavala Age: 86 Gender: F : 1935 Exam Date: 07/16/2022 07:06 Ordering Phys: Grisel Tony NP Technologist: AMISHA [place] [facility] [place] HI-RISK MEDS BP: 100 / 64 HR: Rhythm: Sinus Technical Quality: Adequate MEASUREMENTS (Male / Female) Normal Values 2D ECHO LVOT Diameter 2.0 cm LV Ejection Fraction MOD 2C 67.3 % LV Ejection Fraction 2C AL 69.2 % LA Diameter 4.5 cm LA Width 5.0 cm LA Height 5.8 cm RA Width 4.4 cm RA Height 4.2 cm Aorta at Sinotubular Diameter 1.9 cm IVC Diameter 0.9 cm M-MODE Aortic Annulus Diameter 3.3 cm LA Ao Ratio MM 1.2 MV E Point Septal Separation 0.5 cm DOPPLER AV Peak Velocity 264.5 cm/s LVOT Peak Velocity 132.0 cm/s AV Area Cont Eq vti 1.7 cm squared AV Area Cont Eq pk 1.6 cm squared MV Peak Velocity 199.0 cm/s MV Area PHT 1.7 cm squared Mitral E to A Ratio 0.8 MV E' Velocity 76.0 cm/s Mitral E to MV E' Ratio 19.9 Mitral E to LV E' Lateral Ratio 16.1 Mitral E to LV E' Septal Ratio 26.0 TR Peak Velocity 292.4 cm/s TR Peak Gradient 34.2 mmHg TR Mean Velocity 218.3 cm/s TR Mean Gradient 22.1 mmHg TR Velocity Time Integral 85.3 cm TV Peak E Velocity 51.0 cm/s Right Atrial Pressure 3.0 mmHg Pulmonary Artery Systolic Pressu 37.2 mmHg PV Peak Velocity 125.0 cm/s RV Acceleration Time 0.1 s RV Ejection Time 0.3 s RV AcT/ET 0.3 FINDINGS Left Ventricle Normal left ventricular cavity size. Mildly increased left ventricular wall thickness. Normal left ventricular systolic function. Left ventricular ejection fraction is estimated at 65 %. No regional wall motion abnormalities. Grade II diastolic dysfunction, moderately elevated filling pressures. Right Ventricle Normal right ventricular size and systolic function. Right ventricular systolic pressure 44 mmHg. Pacemaker wire visualized in the right ventricle. Right Atrium Normal right atrial size. Pacemaker wire in the right atrial cavity. Left Atrium Moderately increased left atrial size. Mitral Valve Severe mitral annular calcification. Moderately thickened mitral valve. Possibly mild mitral valve stenosis with mean gradient of 5 mmHg. Mitral valve area by pressure half-time of 2 cm2. Mild mitral valve regurgitation. Aortic Valve Moderately thickened and calcified aortic valve. Mild aortic valve stenosis, peak velocity 2.6 m/s, peak gradient 28 mmHg, mean gradient 14 mmHg,, UDAY 1.8 cm squared. No aortic valve regurgitation. Tricuspid Valve Structurally normal tricuspid valve. Trace to mild tricuspid valve regurgitation. Pulmonic Valve Pulmonic valve not well visualized. Trace pulmonary valve regurgitation. Pericardium No pericardial effusion. Prominent epicardial fat. Aorta Normal size aortic root and proximal ascending aorta. IVC Normal IVC dimension with >50% respiratory change of the inferior vena cava. CONCLUSIONS 1. Normal left ventricular cavity size and systolic function. Mild concentric left ventricle hypertrophy. Left ventricular ejection fraction is estimated at 65 %. No regional wall motion abnormalities. Grade II diastolic dysfunction, moderately elevated filling pressures. 2. Possibly mild mitral valve stenosis with mean gradient of 5 mmHg. Mitral valve area by pressure half-time of 2 cm2. Mild mitral valve regurgitation. 3. Mild aortic valve stenosis, peak velocity 2.6 m/s, peak gradient 28 mmHg, mean gradient 14 mmHg,, UDAY 1.8 cm squared. 4. Mild pulmonary hypertension with pulmonary artery pressure estimated at 44 mmHg. 5. There may not have been any significant change when compared to study dated 12/30/2021. Puja Crespo MD (Electronically Signed) Final Date: 16 July 2022 12:32 S
== END 2022-07-16 06:50 | disposition home or self-care (01) ==
LOC: RAD 06:50
PROVIDERS: PCP Internal Medicine; Visit Provider Nurse Practitioner
DX: Z51.81 Encounter for therapeutic drug level monitoring (principal); C50.811 Malignant neoplasm of overlapping sites of right female breast; I08.0 Rheumatic disorders of both mitral and aortic valves; I27.20 Pulmonary hypertension, unspecified; Z79.899 Other long term (current) drug therapy
CPT/HCPCS: 93306

== ENCOUNTER → 2022-08-01 08:42 | Outpatient (BNVA) | payer MEDICARE, SELFPAY | PROVIDERS: PCP Family Medicine; Visit Provider Internal Medicine Cardiovascular Disease | DX: Z45.010 Encounter for checking and testing of cardiac pacemaker pulse generator [battery] (principal) | CPT/HCPCS: 93280 ==

== ENCOUNTER → 2022-08-05 16:02 | Outpatient (BNVA) | payer MEDICARE, SELFPAY | PROVIDERS: PCP Family Medicine; Referring Provider Family Medicine; Visit Provider Orthopaedic Surgery | DX: M54.9 Dorsalgia, unspecified (principal); M43.16 Spondylolisthesis, lumbar region | CPT/HCPCS: 72110; 99203 ==

== ENCOUNTER 2022-09-10 13:44 | Oncology outpatient (recurring) (ONCR) | payer MEDICARE, SELFPAY ==
[2022-09-10 14:22] LABS: Basophils % 0.3 %; Eosinophils # 0.4 10^3/uL (0.0-0.8); Eosinophils % 5.7 %; Hematocrit 33.6 % (37.0-47.0); Hemoglobin 11.2 g/dL (11.5-15.3); Lymphocytes # 1.6 10^3/uL (0.8-4.8); Mean Corpuscular HGB Conc 33.3 g/dL (30.0-36.0); Mean Corpuscular Hemoglobin 33.1 pg (28.0-34.0); Mean Corpuscular Volume 99.4 fl (81-99); Monocytes # 0.7 10^3/uL (0.2-0.9); Monocytes % 10.8 %; Neutrophils % 60.1 %; Nucleated Red Blood Cells % 0 %; Platelet Count 181 10^3/cmm (130-400); Red Blood Count 3.38 10^6/uL (4.1-5.3); Red Cell Distribution Width 13.7 % (12.1-15.1); White Blood Count 6.8 10^3/uL (4.0-10.0)
[2022-09-10 14:41] LABS: Alanine Aminotransferase 13 U/L (0-33); Albumin Level 3.8 g/dL (3.5-5.2); Alkaline Phosphatase 81 U/L (35-105); Anion Gap 12.4 (5-19); Aspartate Amino Transferase 25 U/L (0-32); Blood Urea Nitrogen 10 mg/dL (8-23); Calcium 9.6 mg/dL (8.5-10.5); Carbon Dioxide 28 mmol/L (22-29); Chloride 98 mmol/L (98-107); Glucose 100 mg/dL (65-115); Osmolality Calculated 277 mOsm/kg (285-295); Potassium 4.4 mmol/L (3.5-5.1); Sodium 134 mmol/L (136-145); Total Bilirubin 0.4 mg/dL (0.15-1.2); Total Protein 6.8 g/dL (6.6-8.7)
== END 2022-10-04 23:59 | disposition home or self-care (01) ==
PROVIDERS: PCP Family Medicine; Visit Provider Internal Medicine Medical Oncology
DX: C50.811 Malignant neoplasm of overlapping sites of right female breast (principal); Z17.1 Estrogen receptor negative status [ER-]; Z90.11 Acquired absence of right breast and nipple; L90.5 Scar conditions and fibrosis of skin; Z79.2 Long term (current) use of antibiotics; Z79.899 Other long term (current) drug therapy; Z92.21 Personal history of antineoplastic chemotherapy; Z95.828 Presence of other vascular implants and grafts
CPT/HCPCS: 36591; 80053; 85025; 99214

== ENCOUNTER → 2022-09-15 15:11 | Outpatient (BNVA) | payer MEDICARE, SELFPAY | PROVIDERS: PCP Family Medicine; Visit Provider Surgery | DX: N64.4 Mastodynia (principal) | CPT/HCPCS: 99213 ==

== ENCOUNTER → 2022-09-30 14:32 | Outpatient (BNVA) | payer MEDICARE, SELFPAY | PROVIDERS: PCP Family Medicine; Visit Provider Surgery | DX: N64.4 Mastodynia (principal); R10.9 Unspecified abdominal pain; R60.1 Generalized edema; Z90.11 Acquired absence of right breast and nipple | CPT/HCPCS: 99213 ==

== ENCOUNTER 2022-10-10 13:07 | Outpatient (CLI) | payer MEDICARE, SELFPAY ==
--- NOTE | 2022-10-10 13:16 | XR_ITS ---
WS: [id number] KUB, AP view, 10/10/2022 Clinical Data: abdominal pain Comparison: KUB, 06/30/2022 Findings: There is fecal material throughout the colon. There are clips in the right upper quadrant from a chol ecystectomy. There are calcifications in the splenic artery and abdominal aortic wall. There is a lev oscoliosis with osteoarthritis of the lumbar spine. There are phleboliths in the true pelvis. There is no bowel dilatation or obstruction. XR/XR KUB [id number] Impression: Fecal material in the colon.
== END 2022-10-10 13:08 | disposition home or self-care (01) ==
LOC: RAD 13:10
PROVIDERS: PCP Family Medicine; Visit Provider Surgery
DX: R10.9 Unspecified abdominal pain (principal)
CPT/HCPCS: 74018

== ENCOUNTER 2022-10-16 12:56 | Oncology outpatient (recurring) (ONCR) | payer MEDICARE, SELFPAY ==
[2022-10-16] MEDS: alteplase 1 mg/mL SDV 2 mL 2 MG INTRACATH ×2 (14:22→15:25)
[2022-10-16 15:35] LABS: Basophils % 0.3 %; Eosinophils # 0.3 10^3/uL (0.0-0.8); Eosinophils % 4.6 %; Hemoglobin 10.9 g/dL (11.5-15.3); Lymphocytes % 15.7 %; Mean Corpuscular Hemoglobin 32.8 pg (28.0-34.0); Mean Corpuscular Volume 99.4 fl (81-99); Mean Platelet Volume 9.1 fL (7.4-10.4); Monocytes # 0.8 10^3/uL (0.2-0.9); Monocytes % 12.1 %; Neutrophils # 4.16 10^3/uL (1.8-7.7); Neutrophils % 66.2 %; Nucleated Red Blood Cells % 0 %; Platelet Count 161 10^3/cmm (130-400); Red Blood Count 3.32 10^6/uL (4.1-5.3); Red Cell Distribution Width 12.5 % (12.1-15.1); White Blood Count 6.3 10^3/uL (4.0-10.0)
[2022-10-16 15:52] LABS: Alanine Aminotransferase 15 U/L (0-33); Albumin Level 3.6 g/dL (3.5-5.2); Alkaline Phosphatase 84 U/L (35-105); Aspartate Amino Transferase 30 U/L (0-32); Blood Urea Nitrogen 10 mg/dL (8-23); Carbon Dioxide 28 mmol/L (22-29); Chloride 100 mmol/L (98-107); Globulin 2.7 g/dL (1.3-4.6); Glucose 91 mg/dL (65-115); Osmolality Calculated 283 mOsm/kg (285-295); Sodium 137 mmol/L (136-145); Total Bilirubin 0.4 mg/dL (0.15-1.2); Total Protein 6.3 g/dL (6.6-8.7)
--- NOTE | 2022-10-16 15:56 | PC.NURSE ---
Dr Hastings visited patient due to undue swelling in both breast and beginning of hard tissue and new orders per dr Hastings for pet scan.She left the suite with son and is aware of the new plans to continue pet scan .daron
[2022-10-16 16:06] LABS: Anion Gap 13.7 (5-19); Potassium 4.7 mmol/L (3.5-5.1)
== END 2022-11-04 23:59 | disposition home or self-care (01) ==
PROVIDERS: PCP Family Medicine; Visit Provider Internal Medicine Medical Oncology
DX: C50.811 Malignant neoplasm of overlapping sites of right female breast (principal); Z17.1 Estrogen receptor negative status [ER-]; Z79.899 Other long term (current) drug therapy; Z95.828 Presence of other vascular implants and grafts
CPT/HCPCS: 36415; 80053; 85025; 96523; J2997

== ENCOUNTER 2022-10-20 10:26 | Outpatient (CLI) | payer MEDICARE, SELFPAY ==
--- NOTE | 2022-10-20 | US_ITS ---
DIAGNOSTIC LEFT DIGITAL TOMOSYNTHESIS MAMMOGRAPHY WITH CAD. Bilateral breast ultrasound, complete HISTORY: left breast pain. History of RIGHT breast cancer with mastectomy. Patient with a large painful mass RIGHT chest wall at the surgical site. New soft tissue thickening in LEFT breast pain. COMPARISON: 07/18/2021, 01/30/2022 Technique: CC, MLO and ML views. LEFT breast mammogram imaging only. Breast composition: The breasts are heterogeneously dense, which may obscure small masses. Diffuse trabecular soft tissue thickening and skin thickening throughout the LEFT breast is new since the prior examinations. There is no focal well formed collection or mass. Benign dystrophic calcification upper- outer LEFT breast. Bilateral breast ultrasound, complete. RIGHT breast: As per history provided by the patient completed RIGHT mastectomy. Very abnormal appearance to the soft tissue along the RIGHT chest wall at the site of the mastectomy. There is mixed soft tissue heterogeneity with increased vascularity. There is a focal soft tissue mass with increased vascularity throughout nearly the entire anterior RIGHT chest wall. There is distortion of the soft tissues and overlying marked skin thickening. The largest area of masslike consolidation measures at least 5.3 x 3.0 cm. LEFT breast: Ultrasound of the entire LEFT breast demonstrates marked skin thickening and edema. Shadowing from a benign calcification at 3:00 LEFT breast. No discrete mass. IMPRESSION: BI-RADS: 3-Probably Benign FOLLOW UP: See Report 1. Skin thickening and trabecular thickening throughout the entire LEFT breast. No mass identified. Most likely skin thickening is due to a diffuse cellulitis and infection versus CHF. 2. By history patient is status post RIGHT mastectomy. Ultrasound only of the RIGHT chest wall requested. A large heterogeneous ill-defined masslike consolidation throughout the anterior RIGHT chest at the mastectomy site. There is increased vascularity within this area of consolidation. Differential includes recurrent neoplasm or a very large inflammatory/phlegmonous collection. This area may need to be surgically debrided due to its extensive nature. No fluid component or drainable collection. MTDD
--- NOTE | 2022-10-20 10:33 | MM_ITS ---
WS: [id number] DIAGNOSTIC LEFT DIGITAL TOMOSYNTHESIS MAMMOGRAPHY WITH CAD. Bilateral breast ultrasound, complete HISTORY: left breast pain. History of RIGHT breast cancer with mastectomy. Patient with a large painful mass RIGHT chest wall at the surgical site. New soft tissue thickening i n LEFT breast pain. COMPARISON: 07/18/2021, 01/30/2022 Technique: CC, MLO and ML views. LEFT breast mammogram imaging only. Breast composition: The breasts are heterogeneously dense, which may obscure small masses. Diffuse t rabecular soft tissue thickening and skin thickening throughout the LEFT breast is new since the prio r examinations. There is no focal well formed collection or mass. Benign dystrophic calcification upp er-outer LEFT breast. Bilateral breast ultrasound, complete. RIGHT breast: As per history provided by the patient completed RIGHT mastectomy. Very abnormal appear ance to the soft tissue along the RIGHT chest wall at the site of the mastectomy. There is mixed soft tissue heterogeneity with increased vascularity. There is a focal soft tissue mass with increased va scularity throughout nearly the entire anterior RIGHT chest wall. There is distortion of the soft tis sues and overlying marked skin thickening. The largest area of masslike consolidation measures at dinh st 5.3 x 3.0 cm. LEFT breast: Ultrasound of the entire LEFT breast demonstrates marked skin thickening and edema. Shad owing from a benign calcification at 3:00 LEFT breast. No discrete mass. MM/[place] [id number] IMPRESSION: BI-RADS: 3-Probably Benign FOLLOW UP: See Report 1. Skin thickening and trabecular thickening throughout the entire LEFT breast . No mass identified. Most likely skin thickening is due to a diffuse celluliti s and infection versus CHF. 2. By history patient is status post RIGHT mastectomy. Ultrasound only of the RIGHT chest wall requested. A large heterogeneous ill-defined masslike consolid ation throughout the anterior RIGHT chest at the mastectomy site. There is incr eased vascularity within this area of consolidation. Differential includes recu rrent neoplasm or a very large inflammatory/phlegmonous collection. This area m ay need to be surgically debrided due to its extensive nature. No fluid compone nt or drainable collection.
== END 2022-10-20 10:27 | disposition home or self-care (01) ==
PROVIDERS: PCP Family Medicine; Visit Provider Surgery
DX: N64.4 Mastodynia (principal); Z85.3 Personal history of malignant neoplasm of breast; Z90.11 Acquired absence of right breast and nipple
CPT/HCPCS: 76641; 77061; G0279

== ENCOUNTER 2022-10-29 10:48 | Outpatient (CLI) | payer MEDICARE, SELFPAY ==
[2022-10-29] MEDS: iohexol 300 mg/mL 50 mL Btl IV (12:51)
[2022-10-29] MEDS: iohexol 350 mg/mL 500 mL Btl (per mL) IV (12:51)
--- NOTE | 2022-10-29 15:30 | CT_ITS ---
WS: [id number] CT ABDOMEN AND PELVIS WITH CONTRAST HISTORY: abdominal pain TECHNIQUE: Imaging performed of the abdomen and pelvis with IV contrast. Single phase imaging of the abdomen. Coronal and sagittal reformats are submitted. All CT scans at [facility] use at dinh st one of these dose optimization techniques: automated exposure control; mA and/or kV adjustment per patient size (includes targeted exams where dose is matched to clinical indication); or iterative re construction. IV CONTRAST: Omnipaque 350; 95 mL IV. Oral contrast: Yes. DLP: 847.91 mGy.cm COMPARISON: 06/24/2022, recent breast ultrasound 10/20/2022 Lower thorax: Reticular thickening in the periphery of the lung bases. Benign granuloma LEFT lower lo be. There are a few very tiny nodules in the RIGHT lower lung field. Heart is moderately enlarged. Ca lcification along the mitral annular valve plane. There is extensive abnormal soft tissue involving t he lower thorax included on the examination. There is a large necrotic lobulated soft tissue mass in the RIGHT chest wall measuring at least 17 x 6 cm. This was recently described by ultrasound also. Th ere is extensive soft tissue thickening noted bilaterally. Soft tissue mass appears to invade into th e anterior RIGHT chest wall into the intercostal muscles. Soft tissue enhancing nodules are noted janet r the LEFT lateral breast with the largest measuring 2.3 cm. Liver/biliary system: Normal size with no intrahepatic dilatation. Gallbladder: Status post cholecystectomy. Pancreas: Marked atrophy of the pancreas. Common bile duct is normal size. Spleen: Normal size spleen. No mass or infarct. Adrenal glands: Normal. Right kidney: Small cortical cysts. No obstruction or solid mass. Left kidney: Normal. Aorta: Mild atherosclerosis with no aneurysm. Lymphadenopathy: None. Free fluid: None. GI tract: Well-distended stomach. There is mild circumferential thickening of the proximal duodenum w hich may be due to underdistention. No obstruction. Numerous diverticula in the distal colon. No acut e diverticulitis. The appendix appears normal. Abdominal wall: Soft tissue infiltration throughout the abdominal wall. Pelvis: Atrophic uterus. No pelvic mass. Urinary bladder is negative. Bones: Increase in lumbar lordosis. L5 anterolisthesis by 5 mm. No osteoblastic or osteolytic bone di sease. CT/CT abdomen pelvis w con* [id number] IMPRESSION: 1. Large necrotic soft tissue mass incompletely visualized centered in the RIG HT chest wall/breast and extends into the intercostal muscles. Mass measures at least 17 x 6 cm and was described on a recent breast ultrasound from 10/20/2022 . 2. Additional enhancing lymph nodes in the LEFT lateral breast appear enlarged and abnormal suspicious for metastatic sites. 3. There is marked diffuse subcutaneous soft tissue thickening involving the l ower thorax including the breasts and the abdomen soft tissues. Edema versus so ft tissue spread of tumor. 4. Prior cholecystectomy. 5. No metastatic disease to the adrenal glands or liver. No GI tract obstructi on. 6. Diverticulosis without acute diverticulitis.
== END 2022-10-29 10:49 | disposition home or self-care (01) ==
PROVIDERS: PCP Family Medicine; Visit Provider Surgery
DX: R59.0 Localized enlarged lymph nodes (principal); K57.90 Diverticulosis of intestine, part unspecified, without perforation or abscess without bleeding; Z90.49 Acquired absence of other specified parts of digestive tract; N63.10 Unspecified lump in the right breast, unspecified quadrant
CPT/HCPCS: 74177; Q9967

== ENCOUNTER → 2022-11-05 14:35 | Outpatient (BNVA) | payer MEDICARE, SELFPAY | PROVIDERS: PCP Family Medicine; Visit Provider Surgery | DX: Z90.11 Acquired absence of right breast and nipple (principal); C50.811 Malignant neoplasm of overlapping sites of right female breast; Z95.828 Presence of other vascular implants and grafts | CPT/HCPCS: 99213 ==

== ENCOUNTER 2022-11-20 12:30 | Oncology outpatient (recurring) (ONCR) | payer MEDICARE, SELFPAY | END 2022-12-02 23:59 | disposition home or self-care (01) | PROVIDERS: PCP Family Medicine; Visit Provider Internal Medicine Medical Oncology | DX: C50.811 Malignant neoplasm of overlapping sites of right female breast (principal); Z17.1 Estrogen receptor negative status [ER-] | CPT/HCPCS: 96523; 99215 ==

== ENCOUNTER → 2022-11-25 11:13 | Outpatient (BNVA) | payer MEDICARE, SELFPAY | PROVIDERS: PCP Family Medicine; Visit Provider Surgery | DX: N64.4 Mastodynia (principal); Z90.11 Acquired absence of right breast and nipple; Z90.49 Acquired absence of other specified parts of digestive tract | CPT/HCPCS: 99213 ==

== ENCOUNTER → 2022-11-28 09:55 | Outpatient (BNVA) | payer OTHER, MEDICARE, SELFPAY | PROVIDERS: PCP Family Medicine; Visit Provider Nurse Practitioner Family | DX: I48.0 Paroxysmal atrial fibrillation (principal); Z95.0 Presence of cardiac pacemaker; I10 Essential (primary) hypertension; Z79.01 Long term (current) use of anticoagulants | CPT/HCPCS: 99213 ==